=== PATIENT | male | born 1950 | race Caucasian/White ===

== ENCOUNTER 2025-04-29 09:06 | Inpatient (IN) | payer OTHER, SELFPAY ==
[2025-04-28 23:56] VITALS: BMI 39.4
[2025-04-29] VITALS (16 sets, daily range): BP systolic 91–133; BP diastolic 54–93; PULSE 85–87; O2SAT 96–98; BMI 38.8
[2025-04-29 00:56] LABS: % Basophils 0.8 % (0-2); % Eosinophils 1.1 % (0-6); % Immature Granulocytes 0.6 % (0-0.5); % Lymphocytes 8.7 % (20.5-51.1); % Monocytes 6.7 % (1.7-9.3); % Neutrophils 82.1 % (42.2-75.2); Absolute Basophils 0.1 10^3/uL (0-0.2); Absolute Eosinophils 0.1 10^3/uL (0-0.7); Absolute Immature Granulocytes 0.1 10^3/uL (0-0.05); Absolute Lymphocytes 0.9 10^3/uL (1.2-3.4); Absolute Monocytes 0.7 10^3/uL (0.1-0.6); Absolute Neutrophils 8.5 10^3/uL (1.4-6.5); Hematocrit 33.4 % (39.0-52.0); Hemoglobin 10.4 g/dL (13.0-18.0); Mean Corp Hgb Conc. 31.1 g/dL (33.0-37.0); Mean Corpuscular Hgb 26.8 pg (27.0-31.0); Mean Corpuscular Volume 86.1 fL (80.0-94.0); Mean Platelet Volume 10.6 fL (7.4-10.4); Nucleated Red Blood Cells % 0 % (-); Platelet Count 190 10^3/uL (130-400); Red Blood Cell Count 3.88 10^6/uL (4.70-6.10); Red Cell Dist. Width 16.8 % (11.5-14.5); White Blood Cell Count 10.3 10^3/uL (4.8-10.8)
[2025-04-29 01:04] LABS: NT-proBNP 21800 pg/ml
[2025-04-29 01:27] LABS: ALT (SGPT) 70 U/L (0-50); AST (SGOT) 59 U/L (17-59); Albumin 2.9 g/dl (3.5-5.0); Alkaline Phosphatase 172 U/L (38-126); Blood Urea Nitrogen 32 mg/dl (9-20); Calcium 8.1 mg/dl (8.4-10.2); Chloride 96 mmol/L (98-107); Estimated Creatinine Clearance 99 ml/min; Glucose 112 mg/dl (70-99); Potassium 3.8 mmol/L (3.5-5.1); Sodium 143 mmol/L (135-145); Total Bilirubin 0.9 mg/dl (0.2-1.3); Total Protein 5.7 g/dl (6.3-8.2); eGFR > 60.00
--- NOTE | 2025-04-29 01:32 | ED.GENMED ---
History of Present Illness
General
Chief Complaint: Abnormal Lab Value
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
Exam Limitations: none
Time Seen by Provider: 04/29/25 01:15
Nursing documentation reviewed up to this point in time: agreed with
History of Present Illness
History of Present Illness:
Patient sent to ED from rehab for abnormal labs: BUN 28, BNP 3396, CO2>40. Labs were drawn earlier today. Brought to ED via EMS for eval. +GUNDERSON wtih minimal activity. He is currently on 2L NC which he reports is new to him. .
Past History
Past History
ED Past Medical History: CAD, CHF, CVA, HTN and NIDDM
Review of Systems
Review of Systems
Allergies reviewed?: Yes
All Other Systems: ROS reviewed and negative except as documented in HPI and ROS
Constitutional: Reports no symptoms
EENT: Reports no symptoms
Respiratory: Reports trouble breathing
Cardiac: Reports no symptoms
ABD/GI: Reports no symptoms
: Reports no symptoms
Musculoskeletal: Reports no symptoms
Skin: Reports no symptoms
Neurological: Reports no symptoms
Psychiatric: Reports no symptoms
Phy Exam
General Physical Exam
General Presentation: moderate distress
General age: appears stated age
General Skin: warm and dry
General Habitus: debilitated
General Mental: alert
Cardiovascular Exam
Cardiovascular Exam: regular rate/rhythm
Pulmonary Exam
Pulmonary Exam: chest non tender and decreased breath sounds
Oxygen Status: oxygen 2 liters via NC
Breath Sounds: Crackles: left lower and right lower
Gastrointestinal Exam
Gastrointestinal Exam: normal bowel sounds, non tender and soft
Neurological Exam
Neurological Exam: alert, oriented x3, CN II-XII intact, no motor deficits, normal reflexs and no sensory deficits
Musculoskeletal Exam
Musculoskeletal Exam: edema (+1 edema BLE) and neuro vasc intact
Skin Exam
Skin Exam: normal color, warm/dry and no rash
Psychiatric Exam
Psychiatric Exam: normal mood/affect
Course
Orders/Labs/Results
Orders:
Orders
04/29/25 00:32
BNP [NT-proBNP] Urgent
Complete Blood Count/With Diff Urgent
Comprehensive Metabolic Panel Urgent
04/29/25 01:32
CR Chest - 2 Views Urgent
Comment:
Reason For Exam: SOB
04/29/25 01:57
Urinalysis Reflex To Culture Urgent
Date Specimen was Collected: 04/29/25
Time Specimen was Collected: 01:56
Urine Microscopic Reflex Cult Urgent
Urine Culture Urgent
KYLE Source: U
Specimen Description:
Date Specimen was Collected: 04/29/25
Time Specimen was Collected: 01:56
04/29/25 02:24
Furosemide [Lasix] 20 mg IV NOW STA
Abnormal Lab Results
04/29/25 04/29/25
00:32 01:57
RBC 3.88 L 10^6/uL
(4.70-6.10)
Hgb 10.4 L g/dL
(13.0-18.0)
Hct 33.4 L %
(39.0-52.0)
MCH 26.8 L pg
(27.0-31.0)
MCHC 31.1 L g/dL
(33.0-37.0)
RDW 16.8 H %
(11.5-14.5)
MPV 10.6 H fL
(7.4-10.4)
Abs Immat Gran (auto) 0.1 H 10^3/uL
(0-0.05)
Absolute Neuts (auto) 8.5 H 10^3/uL
(1.4-6.5)
Absolute Lymphs (auto) 0.9 L 10^3/uL
(1.2-3.4)
Absolute Monos (auto) 0.7 H 10^3/uL
(0.1-0.6)
Immature Gran % 0.6 H %
(0-0.5)
Neutrophils % 82.1 H %
(42.2-75.2)
Lymphocytes % 8.7 L %
(20.5-51.1)
Chloride 96 L mmol/L
(98-107)
Carbon Dioxide 39 H mmol/L
(22-30)
BUN 32 H mg/dl
(9-20)
Glucose 112 H mg/dl
(70-99)
Calcium 8.1 L mg/dl
(8.4-10.2)
ALT 70 H U/L
(0-50)
Alkaline Phosphatase 172 H U/L
(38-126)
Total Protein 5.7 L g/dl
(6.3-8.2)
Albumin 2.9 L g/dl
(3.5-5.0)
Ur Occult Blood Reflex 2+ A
(Negative)
Leukocyte Esterase Rfl 1+ A
(Negative)
Urine RBC 3-6 A /HPF
(0-2)
Urine WBC (Reflex) 11-15 A /HPF
(0-5)
Urine Bacteria (Reflex) Few A
(Negative)
Urine Albumin (Reflex) 1+ A
(Neg - Trace)
04/29/25 00:32
04/29/25 00:32
Vital Signs
Initial and Last Documented VS:
Initial Vital Signs
Temp
98.3 F
04/28/25 23:56
Last Documented Vital Signs
Temp Pulse Resp BP Pulse Ox
98.3 F 80 15 100/68 95
04/28/25 23:56 04/29/25 01:45 04/29/25 01:45 04/29/25 01:18 04/29/25 01:45
*Critical Care Note
Total Time (30-74mins, 75-104mins- exclusive of procedures): Not Applicable
Update Note
Update Note:
Patient to ED from [facility] for abnormal labs. BNP 3300, CO2 >40. He was placed on O2 and rehab facility. Currently 2L NC with pulse ox maintaining at 97%. (pulse ox drops to 89% RA) GUNDERSON with minimal activity. Labs reviewed. BNP 75127. CXR
confirming CHF. RLL effusion. WIll admit to hospitalist. Lasix 20mg IV given in ED.
ED Attending Note
-
Portions of this chart may have been created with voice recognition software.� Occasional wrong word or��sound alike� substitutions may have occurred due to the inherent limitations of voice recognition software.
Discharge Plan
Departure
Patient Disposition: Admit
Date of Disposition: 04/29/25
Time of Disposition: 02:32
Presentation/result/management discussed w/ accepting MD/DO: Hospitalist
Patient with high blood pressure during this ER visit?: No
Condition: Fair
Covid-19: Not Applicable
Discharge Problem:
CHF (congestive heart failure)
Referrals:
Efrain Ma MD [Family Provider]
Interventions
Interventions:
*Risk Screen - Suicide Last Done: 04/28/25 23:56
*General Assessment Last Done: 04/28/25 23:56
*Neglect/Abuse Screening Last Done: 04/28/25 23:56
*ED- Fall Risk Assessment Last Done: 04/28/25 23:56
*ED COVID-19 Vaccine History Last Done: 04/28/25 23:56
Discharge Date and Time
Print Language: SWEDISH
[2025-04-29 01:39] LABS: Carbon Dioxide 39 mmol/L (22-30)
[2025-04-29 02:05] LABS: Urine Albumin 1+ (Neg - Trace); Urine Bilirubin Negative (Negative); Urine Character Clear (Clear); Urine Color Yellow; Urine Glucose Negative (Negative); Urine Ketone Negative (Negative); Urine Leukocyte 1+ (Negative); Urine Nitrite Negative (Negative); Urine Occult Blood 2+ (Negative); Urine Urobilinogen Negative (Neg - 1+)
[2025-04-29 02:24] LABS: Urine Mucus Many
[2025-04-29 02:26] LABS: Urine Bacteria Few (Negative)
[2025-04-29] MEDS: FLUSH (NSS) 10 FLUSH IV (03:12)
[2025-04-29] MEDS: LASIX 20 MG IV ×2 (03:12→09:48)
--- NOTE | 2025-04-29 03:36 | HPS.HSE ---
Family Physician
-
Family Physician: Efrain Ma
Chief Complaint
-
From rehab facility due to abnormal laboratory findings
History of Present Illness
The patient is a 74-year-old gentleman with past medical history significant for coronary artery disease, cardiac stents on Plavix, Life Vest, CHF on 1800 mL fluid restriction, CVA on Xarelto, hypertension, fsx-qwtdcqp-hxpdnfzrc diabetes, BPH,
neurogenic bladder w chronic Hester (unclear how long this has been in), Life Vest, hydrocele, lymphadenopathy, cellulitis, diet w thin liquids, SAMI not tolerating CPAP, on oxygen 2L per NC for the prior 6 months per patient, who presented to the
emergency department via EMS from rehab facility due to worsening dyspnea on minimal exertion and laboratory findings of BNP of 3396 and CO2 greater than 40 from labs drawn earlier today. He presented on 2 L nasal cannula that was placed at the
rehab facility, not typically on home oxygen. His oxygen saturation in the emergency department is 89% on room air.
Laboratory findings are remarkable for hemoglobin 10.4, CO2 39, BUN 32, ALT 70, albumin 2.9, proBNP 21,800, urinalysis with 2+ occult blood, 1+ leukocyte esterase, 11-15 WBCs, few bacteria
Chest x-ray shows bilateral pleural effusion, bilateral vascular congestion, cardiomegaly, no prior chest x-rays to compare
ED treatment 20 mg IV Lasix
Medical History
Past Medical History
Past Medical History: Reports CAD (cardiac stents/[facility], Life Vest), CHF, CVA (on Xarelto), HTN (Essential), NIDDM and Other (Anemia, BPH, neurogenic bladder, Hester catheter, Sleep apnea did not tolerate CPAP, ambulatory dysfunction, hydrocele)
Past Surgical History: Reports Cardiac (stent)
Social History
Tobacco: Non-smoker
Alcohol: None
Drug: None
Family History
Family History: Not pertinent
Allergies / Home Medications
Allergies reflects when Allergies were last updated in [employer].
Home Medications with original date entered in [employer]
Allergy/Medication List:
Allergies
Allergy/AdvReac Type Severity Reaction Status Date / Time
sulfate ion Allergy Unknown Verified 04/28/25 23:57
Home Medications
atorvastatin 80 mg tablet 80 mg PO QPM 04/29/25
brimonidine 0.2 % eye drops 1 drp ophthalmic (eye) Q8H 04/29/25
bumetanide 2 mg tablet 2 mg PO BID 04/29/25
clopidogrel 75 mg tablet (Plavix) 75 mg PO DAILY 04/29/25
finasteride 5 mg tablet 5 mg PO DAILY 04/29/25
gabapentin 600 mg tablet 600 mg PO TID 04/29/25
latanoprost 0.005 % eye drops 1 drp ophthalmic (eye) QPM 04/29/25
metoprolol succinate 25 mg tablet,extended release 24 hr 25 mg PO DAILY 04/29/25
pantoprazole 40 mg tablet,delayed release 40 mg PO DAILY 04/29/25
rivaroxaban 20 mg tablet (Xarelto) 20 mg PO DAILY 04/29/25
tamsulosin 0.4 mg capsule (Flomax) 0.4 mg PO DAILY 04/29/25
Review of Systems
-
A 12 point ROS was completed and negative except as noted: Yes
Physical Exam
Vital Signs
Vital Signs
Temp Pulse Resp BP Pulse Ox
98.3 F 78 18 103/77 99
04/28/25 23:56 04/29/25 03:00 04/29/25 03:00 04/29/25 03:00 04/29/25 03:00
Physical Exam
General: Well Developed, Well Nourished, Conversant and Respiratory Distress (dyspnea with 2-3 word sentences)
HEENT: NormoCephalic, Anicteric and Moist mucous membranes
Respiratory: Crackles (bibasilar)
Cardiac: S1/S2, Regular Rhythm and JVD
GI: Soft, Non Tender and Non Distended
Musculoskeletal: Edema, Left Lower Extremity (up to thigh, 3+) and Edema, Right Lower Extremity (up to thigh, 3+)
Skin: Warm and Dry
Neuro: No Motor Deficits and Nonfocal/grossly intact
Psych: Calm
Laboratory Results
-
04/29/25 00:32
04/29/25 00:32
Laboratory Results
Total Bilirubin 0.9 mg/dl (0.2-1.3) 04/29/25 00:32
AST 59 U/L (17-59) 04/29/25 00:32
ALT 70 U/L (0-50) H 04/29/25 00:32
Alkaline Phosphatase 172 U/L (38-126) H 04/29/25 00:32
Impression/Plan
-
IMPRESSION:The patient is a 74-year-old gentleman with past medical history significant for coronary artery disease, CHF, CVA, hypertension, wyc-yyhwwgt-mdiwysgzk diabetes who presented to the emergency department via EMS from rehab facility due to
dyspnea on minimal exertion and laboratory findings of BNP of 3396 and CO2 greater than 40 from labs drawn earlier today. He presented on 2 L nasal cannula that was placed at the rehab facility, not typically on home oxygen. His oxygen saturation
in the emergency department is 89% on room air. Hester catheter in place draining clear pale yellow urine. He denies CP, no abdominal pain, no n/v/d, b/l LE edema acute on chronic, scrotal swelling, and developing sacral decub/buttock ulcers
Laboratory findings are remarkable for hemoglobin 10.4, CO2 39, BUN 32, ALT 70, albumin 2.9, proBNP 21,800, urinalysis with 2+ occult blood, 1+ leukocyte esterase, 11-15 WBCs, few bacteria
Chest x-ray shows bilateral pleural effusion, bilateral vascular congestion, cardiomegaly, no prior chest x-rays to compare
ED treatment 20 mg IV Lasix
#Acute exacerbation of CHF, no history of being seen at , was seen at [facility], Dr. Sim, pt requesting to come to from rehab facility.
-tele monitoring
-cont IV Lasix 20 BID-he responded well to 20 IV in ED
-Cardiology consultation for am
-will obtain [facility] records
-check trop
-Add on Mg
-strict i/o, daily weights, fluid restriction
-Continue O2 per NC, with weaning protocol, currently requiring 3L O2
-obtain EKG and echocardiogram
#Coronary artery disease,
-cardiac stents on Plavix,
-noted Life Vest,
# CVA on Xarelto, stable
#Essential hypertension
#Soa-chembza-kmgvyuszw diabetes
#BPH
-Follows OP with urology
#neurogenic bladder w chronic Hester (unclear how long this has been in),
#Hydrocele,
#lymphadenopathy,history of LE cellulitis, no evidence for cellulitis currently
#SAMI not tolerating CPAP, on oxygen 2L per NC for the prior 6 months
-Continue O2 with weaning protocol, currently requiring 3L O2
DVT proph-cont Xarelto
Full Code
--- NOTE | 2025-04-29 08:15 | PTCARENOTE ---
Pt arrived from ED at this time, AAOX3, SR on telemetry, SOB, GUNDERSON, on 3L O2 via NC- SPO2 97% on 3L. See shift assessment for further detail. Oriented pt to rm, call aguillon, pressure ulcer prevention, fall risk, reporting concerns, etc- pt verbalized
understanding. Call aguillon within reach.
[2025-04-29 08:32] LABS: Magnesium 1.8 mg/dl (1.6-2.3)
[2025-04-29 09:03] LABS: Troponin I 0.022 ng/ml
--- NOTE | 2025-04-29 09:35 | W.PN.HOSP.TC ---
Today's Communication/Plan
-
Increase dose of Lasix
Prednisone
Nebs
Mucinex
Cardiology consult
PT/OT
Doppler ultrasound lower extremities
Try to obtain records
Assessment / Plan
Assessment / Plan
Gen-AAOx3, NAD, obese
HEENT-NC, AT, anicteric, clear oral mm
Neck-supple
CV-reg, no M, +S1/S2
Lungs-bilateral expiratory wheezing
Abd-soft, NT, ND
Ext-no edema
Musculoskeletal-no cyanosis, clubbing
Skin-warm and dry
Neuro-grossly non-focal
Psych-calm, cooperative
Acute hypoxic respiratory failure -likely multifactorial etiology including acute pulmonary edema from heart failure exacerbation, pleural effusions, acute bronchitis with active wheezing, etc.
Oxygenation adequate on 3 L nasal cannula.
Chest x-ray demonstrates moderate cardiomegaly, moderate pulmonary edema, moderate size right and small left pleural effusions.
Acute on chronic heart failure exacerbation -unknown type. BNP 21,800. Check echocardiogram. Increase Lasix dose to 40 mg IV twice daily. Consult cardiology. Try to obtain records from [facility]. Patient states he was just discharged from
[facility] several days ago after a 2-week stay. He is a very poor historian and cannot give me further details. Cannot tell me the diagnoses.
It is documented he required a LifeVest, unclear if he still requires this. 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 Records requested.
Was on Bumex 2 mg twice daily prior to admission.
Acute bronchitis -wheezing on exam. Start prednisone and nebs, Mucinex. Incentive spirometer.
CAD -with prior stenting, details are not known. Try to obtain records.
Essential hypertension -stable.
DM2 without hyperglycemia -does not appear to be on medications for diabetes. Continue low resistance insulin scale. Check hemoglobin A1c.
History of stroke -details unknown.
SAMI - intolerant of CPAP.
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 Currently on Xarelto, details unclear. Try to obtain records.
Neurogenic bladder -chronic Hester catheter. Unclear when it was last changed.
Hydrocele -was due for treatment by his urologist but postponed due to respiratory status.
BPH -tamsulosin.
Chronic anemia -hemoglobin 10.4. Baseline unknown. Monitor for now.
Morbid obesity due to excess calories
Full code
PT/OT
Anticipated Discharge: > 48 hours
Subjective/Interval History
-
Date of Service: April 29, 2025
Patient seen and examined. Breathing somewhat improved. Does have a cough.
Objective Data
-
Labs:
Laboratory Results
04/29/25
00:32
WBC 10.3
Hgb 10.4 L
Hct 33.4 L
Plt Count 190
Sodium 143
Potassium 3.8
Chloride 96 L
Carbon Dioxide 39 H
BUN 32 H
Creatinine 0.8
Glucose 112 H
Calcium 8.1 L
Total Bilirubin 0.9
AST 59
ALT 70 H
Alkaline Phosphatase 172 H
Vital Signs:
Vital Signs
Temp Pulse Resp BP Pulse Ox
97.5 F 61 18 116/68 98
04/29/25 08:10 04/29/25 08:10 04/29/25 08:10 04/29/25 08:10 04/29/25 08:10
I&O
04/28/25 04/29/25 04/30/25
06:59 06:59 06:59
Output Total 450 / 450 850 / 850
Balance -450 / -450 -850 / -850
Review of Systems
-
History Source: Patient
All other systems: Reviewed and negative
[2025-04-29 09:38] LABS: Glucose - Point of Care 119 mg/dl (70-99)
[2025-04-29] MEDS: NOVOLOG FLEXPEN-LOW RESISTANCE SC ×3 (09:43→17:03)
[2025-04-29] MEDS: FLOMAX 0.4 MG PO (09:44)
[2025-04-29] MEDS: PROSCAR 5 MG PO (09:44)
[2025-04-29] MEDS: PLAVIX 75 MG PO (09:44)
[2025-04-29] MEDS: ALPHAGAN 0.2% EYE DROPS 1 DROP OPHTH ×3 (09:44→23:05)
[2025-04-29] MEDS: PROTONIX 40 MG PO (09:44)
[2025-04-29] MEDS: NEURONTIN 600 MG PO ×3 (09:45→21:02)
[2025-04-29] MEDS: MUCINEX 600 MG PO ×2 (09:45→20:39)
[2025-04-29] MEDS: DELTASONE 40 MG PO (09:45)
[2025-04-29] MEDS: TOPROL XL 25 MG PO (09:45)
[2025-04-29] MEDS: XARELTO 20 MG PO (09:45)
[2025-04-29] MEDS: FLUSH (NSS) 2 FLUSH IV (09:48)
[2025-04-29] MEDS: VENTOLIN NEBULES 2.5 MG INH ×3 (10:54→19:19)
--- NOTE | 2025-04-29 11:40 | CON.CAR ---
Addendum entered and electronically signed by Filiberto Wilkes DO 04/29/25 13:45:
I saw and examined the patient.
The Spotter Driver's note was reviewed and I agree with the note.
Comment:
Patient seen and examined, resting comfortably in bed, enjoying lunch. Patient denies chest pain, palpitations, lightheadedness, dizziness, or weakness. Notes some shortness of breath while eating and with supplemental oxygen on.
GENERAL: no acute distress, mild dyspnea, 3 L nasal cannula, obese
EYE: sclera anicteric
NECK: Supple, no JVD, no carotid bruit appreciated
ENT: normal nose, moist mucosal membranes
CARDIAC: Regular rate and rhythm, +S1/S2, no murmur, rubs, or gallops, distant heart sounds
CHEST/PULMONARY: Poor inspiratory effort, faint crackles
ABDOMEN: Soft, without focal tenderness or distention
NEUROLOGICAL: Alert and oriented x3
SKIN: Warm and dry, no rash; 1�2+ bilateral pitting edema with chronic discoloration
PSYCH: Normal and appropriate interaction.
Telemetry shows sinus rhythm, PAC/PVC, brief NSVT
Assessment and plan as below
Awaiting medical records from [facility] and [facility]; patient with complex medical history unable to provide much information
Continue Plavix 75 mg daily, and adjusted Xarelto 15 mg daily in the setting of his possible ischemic heart disease and possible AF history
It is reported patient has a LifeVest following discharge from one of his hospitalizations however patient reporting he wore the LifeVest for 4 weeks and has not worn it since and does not have it with him.
IV diuresis 80 mg twice daily, monitor renal function, electrolytes, intake and output in the setting of acute on chronic heart failure
Repeat echocardiogram
Trend troponin to peak and monitor
Further recommendations to follow
Discussed with nursing
Original Note:
Consultation
Consultation Request
Date/Time Consultation Requested: 04/29/2025
Date/Time Consultation Performed: 04/29/2025
Requesting Provider: Dr. Patiño
Performing Provider: Dr. Wilkes
Reason for Consultation: Acute HF
Medical History
-
History of Present Illness:
Patient came to [facility] ER very early this morning from [facility] because of abnormal labs and was admitted with acute HF unknown EF and cardiology has been consulted. Patient is not clear if the details of his past medical history and states that he has
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 He says he is now following primarily at [facility] and was admitted there twice
recently for what sounds like heart failure and possibly CAD. Patient describes having a right IJ placed and being in ICU. Patient was transferred to [facility] and had labs there, the BNP was 3396 and he was transferred to [facility] ER for evaluation, he
has never been evaluated in this healthcare system. I checked in [facility] and there are no available records and they are either including looking at [facility]. When patient was transferred from [facility] [place] food BB [facility] he did not require supplemental oxygen
but is now requiring 3 L NC continuously.
PM:
Recent hospitalizations at [facility] and possibly [facility] for acute HF and CAD, details unclear
Chronic HF unknown EF
CAD s/p PCI unknown vessel, unknown time, unknown healthcare system
LifeVest therapy, unclear if for ICM or arrhythmia
h/o CVA
Sinus rhythm throughout admission, possible paroxysmal atrial fibrillation
Hyperlipidemia
Past Medical History
Past Medical History: Other (In HPI)
Past Surgical History: Cardiac (PCI)
Social History
Tobacco: Non-Smoker
Alcohol: None
Drug: None
Personal: (His in the last year)
Living: Group Home ([facility])
Family History
Family History: Diabetes
Allergies / Home Medications
Allergy/AdvReac Type Severity Reaction Status Date / Time
sulfate ion Allergy Unknown Verified 04/29/25 07:00
�Medication �Instructions �Recorded �Confirmed �Type
atorvastatin 80 mg tablet 80 mg PO QPM 04/29/25 04/29/25 History
brimonidine 0.2 % eye drops 1 drp ophthalmic (eye) Q8H 04/29/25 04/29/25 History
bumetanide 2 mg tablet 2 mg PO BID 04/29/25 04/29/25 History
clopidogrel 75 mg tablet (Plavix) 75 mg PO DAILY 04/29/25 04/29/25 History
finasteride 5 mg tablet 5 mg PO DAILY 04/29/25 04/29/25 History
gabapentin 600 mg tablet 600 mg PO TID 04/29/25 04/29/25 History
latanoprost 0.005 % eye drops 1 drp ophthalmic (eye) QPM 04/29/25 04/29/25 History
metoprolol succinate 25 mg 25 mg PO DAILY 04/29/25 04/29/25 History
tablet,extended release 24 hr
pantoprazole 40 mg tablet,delayed 40 mg PO DAILY 04/29/25 04/29/25 History
release
rivaroxaban 20 mg tablet (Xarelto) 20 mg PO DAILY 04/29/25 04/29/25 History
tamsulosin 0.4 mg capsule (Flomax) 0.4 mg PO DAILY 04/29/25 04/29/25 History
Review of Systems
-
History Source: Patient
All other systems: Negative unless noted
Physical Exam
Vital Signs
Temp Pulse Resp BP Pulse Ox
97.5 F 85 15 116/68 98
04/29/25 08:10 04/29/25 11:02 04/29/25 11:02 04/29/25 09:45 04/29/25 11:02
GEN: NAD. AAOx3
HEENT: EOMI, MMM
LUNGS: 3 L NC. Clear anterolaterally with poor inspiratory effort
CV: Reg, S1/S2, difficult to appreciate murmur, distant heart sounds
ABD: obese abdomen, soft, BS+, NT, ND
EXT: +1-2 B/L LE edema
NEURO: Gross non-focal
SKIN: No rash
Lab Results
04/29/25 00:32
04/29/25 00:32
Troponin I 0.022 ng/ml 04/29/25 08:20
Trs-P-Jafgysnvlye Pept 27858 pg/ml 04/29/25 00:32
Impression / Plan
-
PCP: Dr. Efrain Ma at [facility] and sees a PCP as an outpatient
Card: Dr. Charles Sim at [facility]
Impression:
Admitted with acute hypoxia and CHF 04/29/2025
Recent hospitalizations at [facility] and possibly [facility] for acute HF and CAD, details unclear
Acute on chronic HF unknown EF
CAD s/p PCI unknown vessel, unknown time, unknown healthcare system
LifeVest therapy, unclear if for ICM or arrhythmia
h/o CVA
Sinus rhythm throughout admission, possible paroxysmal atrial fibrillation
Hyperlipidemia
Plan:
-Patient came to [facility] ER very early this morning from [facility] because of abnormal labs and was admitted with acute HF unknown EF and cardiology has been consulted. Patient is not clear if the details of his past medical history and states that he has
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 He says he is now following primarily at [facility] and was admitted there twice
recently for what sounds like heart failure and possibly CAD. Patient describes having a right IJ placed and being in ICU. Patient was transferred to [facility] and had labs there, the BNP was 3396 and he was transferred to [facility] ER for evaluation, he
has never been evaluated in this healthcare system. I checked in [facility] and there are no available records and they are either including looking at [facility]. When patient was transferred from [facility] [place] food BB [facility] he did not require supplemental oxygen
but is now requiring 3 L NC continuously.
-ECG x 2 reviewed by me is SR without atrial arrhythmia or acute ischemic change, he has rare PAC and PVC
-Initial troponin 0.022 and additional troponin pending. Patient with what he describes as recent PCI of unknown vessel, unknown time and was likely done at [facility]. Outpatient doses of Plavix and Xarelto have been continued
-Patient was taking Plavix 75 mg daily and Xarelto 20 mg daily prior to admission, but [facility] trial data the patient's Xarelto dose should be 15 mg daily when taking along with Plavix in the setting of PCI. Dosing changed by pr 04/29/2025
-No reports of chest pain.
-EF unknown, but presumably reduced given LifeVest. Check echo
-Patient was taking Bumex 2 mg PO BID prior to admission so recommend Lasix 80 mg IV twice daily for diuresis and would consider a dose of metolazone pending diuretic response. No indication the patient has received metolazone in the past and it is
not listed as an allergy
-No appreciable GDMT aside from Toprol-XL 25 mg daily on outpatient medication list, this has also been continued this admission. If EF truly is reduced then we will try to figure out what GDMT he can tolerate based on records once they are
available
[2025-04-29 12:26] LABS: Glucose - Point of Care 116 mg/dl (70-99)
[2025-04-29 14:40] LABS: Troponin I 0.022 ng/ml
--- NOTE | 2025-04-29 15:56 | CM ---
Alert awake oriented patient who was in rehab at [facility] prior to coming to ED . He is assisted in all activities of daily living.He has a walker.Spoke with dgt Fernanda she requests hum to return to [facility] at id. Will need PT eval first.
Pt had VN hx /[facility] SN[facility] history
Pharmacy [facility]
PCP DR Francesca Gomez
PLAN Return to [facility]
[2025-04-29 16:44] LABS: Glucose - Point of Care 138 mg/dl (70-99)
[2025-04-29] MEDS: DESENEX/MITRAZOL/ZEASORB 1 APPLIC TOPICAL ×2 (17:29→20:39)
[2025-04-29] MEDS: LIPITOR 80 MG PO (17:29)
[2025-04-29] MEDS: LASIX 80 MG IV (17:29)
[2025-04-29] MEDS: XALATAN OPHTHALMIC SOLUTION 1 DROP OPHTH (17:40)
[2025-04-29] MEDS: TYLENOL 650 MG PO (20:44)
[2025-04-29 21:06] LABS: Troponin I 0.015 ng/ml
[2025-04-29 21:20] LABS: Glucose - Point of Care 148 mg/dl (70-99)
[2025-04-30 03:43] VITALS: BP 112/72
[2025-04-30 05:46] LABS: Hematocrit 33.6 % (39.0-52.0); Hemoglobin 10.4 g/dL (13.0-18.0); Mean Corpuscular Hgb 26.8 pg (27.0-31.0); Mean Corpuscular Volume 86.6 fL (80.0-94.0); Mean Platelet Volume 10.9 fL (7.4-10.4); Platelet Count 206 10^3/uL (130-400); Red Blood Cell Count 3.88 10^6/uL (4.70-6.10); Red Cell Dist. Width 16.9 % (11.5-14.5); White Blood Cell Count 8.8 10^3/uL (4.8-10.8)
[2025-04-30 06:00] VITALS: BMI 38.5
[2025-04-30 06:13] LABS: ALT (SGPT) 61 U/L (0-50); AST (SGOT) 44 U/L (17-59); Albumin 2.9 g/dl (3.5-5.0); Alkaline Phosphatase 154 U/L (38-126); Blood Urea Nitrogen 34 mg/dl (9-20); Calcium 8.5 mg/dl (8.4-10.2); Chloride 94 mmol/L (98-107); Estimated Creatinine Clearance 88 ml/min; Glucose 106 mg/dl (70-99); HDL Cholesterol 27 mg/dl; LDL Cholesterol, Calculated 26 mg/dl; Potassium 4.2 mmol/L (3.5-5.1); Sodium 142 mmol/L (135-145); Total Bilirubin 0.8 mg/dl (0.2-1.3); Total Cholesterol 64 mg/dl (50-199); Triglyceride 55 mg/dl (10-149); Very Low Density Lipoprotein 11 mg/dl (0-30); eGFR > 60.00
[2025-04-30 06:40] LABS: TSH Reflex To Free T4 1.14 uIU/ml (0.47-4.68)
[2025-04-30 07:09] LABS: Carbon Dioxide 42 mmol/L (22-30)
[2025-04-30] MEDS: VENTOLIN NEBULES 2.5 MG INH ×4 (07:14→19:19)
[2025-04-30 07:15] LABS: Glucose - Point of Care 112 mg/dl (70-99)
[2025-04-30 07:35] VITALS: BP 117/85
[2025-04-30] MEDS: NOVOLOG FLEXPEN-LOW RESISTANCE SC ×3 (08:06→17:12)
[2025-04-30] MEDS: LASIX 80 MG IV ×2 (08:20→17:29)
[2025-04-30] MEDS: DELTASONE 40 MG PO (08:20)
[2025-04-30] MEDS: DESENEX/MITRAZOL/ZEASORB 1 APPLIC TOPICAL ×2 (08:20→20:58)
[2025-04-30] MEDS: FLOMAX 0.4 MG PO (08:20)
[2025-04-30] MEDS: ALPHAGAN 0.2% EYE DROPS 1 DROP OPHTH ×2 (08:20→17:28)
[2025-04-30] MEDS: PLAVIX 75 MG PO (08:21)
[2025-04-30] MEDS: PROSCAR 5 MG PO (08:21)
[2025-04-30] MEDS: TOPROL XL 25 MG PO (08:21)
[2025-04-30] MEDS: MUCINEX 600 MG PO ×2 (08:21→20:58)
[2025-04-30] MEDS: PROTONIX 40 MG PO (08:21)
[2025-04-30] MEDS: NEURONTIN 600 MG PO ×3 (08:21→21:00)
[2025-04-30] MEDS: XARELTO 20 MG PO (08:21)
[2025-04-30] MEDS: FLUSH (NSS) 2 FLUSH IV (08:22)
[2025-04-30 10:11] LABS: Glycohemoglobin (HgbA1c) 6.1 % (4.0-5.6)
[2025-04-30 10:35] VITALS: BMI 38.5
--- NOTE | 2025-04-30 11:01 | W.PN.HOSP.TC ---
Today's Communication/Plan
-
Continue diuresis
Try to obtain records
Echocardiogram in the morning
Assessment / Plan
Assessment / Plan
Gen-AAOx3, NAD, obese
HEENT-NC, AT, anicteric, clear oral mm
Neck-supple
CV-reg, no M, +S1/S2
Lungs-clear bilaterally
Abd-soft, NT, ND
Ext-bilateral lower extremity edema from thighs to feet
Musculoskeletal-no cyanosis, clubbing
Skin-warm and dry
Neuro-grossly non-focal
Psych-calm, cooperative
Acute hypoxic respiratory failure -likely multifactorial etiology including acute pulmonary edema from heart failure exacerbation, pleural effusions, acute bronchitis with active wheezing, etc.
Oxygenation adequate on 3 L nasal cannula.
Chest x-ray demonstrates moderate cardiomegaly, moderate pulmonary edema, moderate size right and small left pleural effusions.
Acute on chronic heart failure exacerbation -unknown type. Clinically improving. Less edema on exam today. BNP 21,800. Check echocardiogram. Continue IV Lasix. Weight coming down.
Try to obtain records from [facility]. Patient states he was just discharged from [facility] several days ago after a 2-week stay. He is a very poor historian and cannot give me further details. Cannot tell me the diagnoses.
It is documented he required a LifeVest, unclear if he still requires this. 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 Sim in [facility]. Records requested.
Was on Bumex 2 mg twice daily prior to admission.
Acute bronchitis -wheezing improved. Short course of steroids. Continue inhalers, Mucinex, incentive spirometer.
CAD -with prior stenting, details are not known. Try to obtain records.
Essential hypertension -stable.
DM2 without hyperglycemia -does not appear to be on medications for diabetes. Continue low resistance insulin scale. Hemoglobin A1c 6.1%. Glucose 106 this morning.
History of stroke -details unknown.
SAMI - intolerant of CPAP.
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 Currently on Xarelto, details unclear. Try to obtain records.
Neurogenic bladder -chronic Hester catheter. Unclear when it was last changed.
Hydrocele -was due for treatment by his urologist but postponed due to respiratory status.
BPH -tamsulosin.
Chronic anemia -hemoglobin 10.4. Baseline unknown. Monitor for now.
Morbid obesity due to excess calories
Full code
PT/OT -SNF on discharge.
Anticipated Discharge: > 48 hours
Subjective/Interval History
-
Date of Service: April 30, 2025
Patient seen and examined. Overall feeling better. Some tightness in the right thigh.
Objective Data
-
Labs:
Laboratory Results
04/30/25 04/30/25
04:47 04:48
WBC 8.8
Hgb 10.4 L
Hct 33.6 L
Plt Count 206
Sodium 142
Potassium 4.2
Chloride 94 L
Carbon Dioxide 42 H
BUN 34 H
Creatinine 0.9
Glucose 106 H
Calcium 8.5
Total Bilirubin 0.8
AST 44
ALT 61 H
Alkaline Phosphatase 154 H
Vital Signs:
Vital Signs
Temp Pulse Resp BP Pulse Ox
98.0 F 67 18 117/85 97
04/30/25 07:35 04/30/25 08:20 04/30/25 07:35 04/30/25 08:20 04/30/25 07:35
I&O
04/29/25 04/30/25 05/01/25
06:59 06:59 06:59
Intake Total 720 / 720
Output Total 450 / 450 3300 / 3300 500 / 500
Balance -450 / -450 -2580 / -2580 -500 / -500
Review of Systems
-
History Source: Patient
All other systems: Reviewed and negative
[2025-04-30 11:25] VITALS: BP 111/78
[2025-04-30 11:48] LABS: Glucose - Point of Care 128 mg/dl (70-99)
--- NOTE | 2025-04-30 12:40 | W.PN.CARDCBS ---
Today's Communication / Plan
-
Diuresis with Lasix 80 mg IV twice daily monitoring intake output Daily weights
Awaiting records
Echocardiogram pending
Impression / Plan
-
PCP: Dr. Efrain Ma at rehab and sees a PCP as an outpatient
Card: Dr. Charles Sim at [facility]
Impression:
Admitted with acute hypoxia and CHF 04/29/2025
Recent hospitalizations at [facility] and possibly [facility] for acute HF and CAD, details unclear
Acute on chronic HF unknown EF
CAD s/p PCI unknown vessel, unknown time, unknown healthcare system
LifeVest therapy, unclear if for ICM or arrhythmia
h/o CVA
Sinus rhythm throughout admission, possible paroxysmal atrial fibrillation
Hyperlipidemia
Plan:
-Patient came to [facility] ER very early this morning from [facility] because of abnormal labs and was admitted with acute HF unknown EF and cardiology has been consulted. Patient is not clear if the details of his past medical history and states that he has
been going to [facility] for at least 9 years, but most recently has become frustrated and has abandoned all of his physicians except for his bioinformatics software engineer. He says he is now following primarily at [facility] and was admitted there twice
recently for what sounds like heart failure and possibly CAD. Patient describes having a right IJ placed and being in ICU. Patient was transferred to [facility] and had labs there, the BNP was 3396 and he was transferred to [facility] ER for evaluation, he
has never been evaluated in this healthcare system. I checked in [facility] and there are no available records and they are either including looking at [facility]. When patient was transferred from [facility] with food BB LVH he did not require supplemental oxygen
but is now requiring 3 L NC continuously.
-ECG x 2 reviewed by me is SR without atrial arrhythmia or acute ischemic change, he has rare PAC and PVC
-Initial troponin 0.022, remain negative for 2 additional troponin Patient with what he describes as recent PCI of unknown vessel, unknown time and was likely done at [facility]. Outpatient doses of Plavix and Xarelto have been continued
-Patient was taking Plavix 75 mg daily and Xarelto 20 mg daily prior to admission, but [facility] trial data the patient's Xarelto dose should be 15 mg daily when taking along with Plavix in the setting of PCI. Dosing changed by me 04/29/2025
-EF unknown, but presumably reduced given LifeVest. Check echo
-Patient was taking Bumex 2 mg PO BID prior to admission so recommend Lasix 80 mg IV twice daily for diuresis and would consider a dose of metolazone pending diuretic response. No indication the patient has received metolazone in the past and it is
not listed as an allergy. Continue IV diuresis monitoring intake and output, daily weights
-No appreciable GDMT aside from Toprol-XL 25 mg daily on outpatient medication list, this has also been continued this admission. If EF truly is reduced then we will try to figure out what GDMT he can tolerate based on records once they are
available
Progress Note - Dietary Service Aide
Subjective
Date of Service: April 30, 2025
Patient seen and examined's morning. No acute events overnight. Patient reporting stable unchanged shortness of breath but does report good urine output. Denies chest pain, palpitations, or weakness.
Objective
Labs:
04/30/25 04:48
04/30/25 04:47
Labs
Hgb 10.4 g/dL (13.0-18.0) L 04/30/25 04:48
Hct 33.6 % (39.0-52.0) L 04/30/25 04:48
Plt Count 206 10^3/uL (130-400) 04/30/25 04:48
Sodium 142 mmol/L (135-145) 04/30/25 04:47
Potassium 4.2 mmol/L (3.5-5.1) 04/30/25 04:47
BUN 34 mg/dl (9-20) H 04/30/25 04:47
Creatinine 0.9 mg/dL (0.7-1.3) 04/30/25 04:47
Glucose 106 mg/dl (70-99) H 04/30/25 04:47
Troponins
04/29/25 04/29/25 04/29/25
08:20 14:09 20:26
Troponin I 0.022 0.022 0.015 D
Vital Signs and I&O:
Vital Signs
Temp Pulse Resp BP Pulse Ox
97.6 F 77 18 111/78 98
04/30/25 11:25 04/30/25 11:25 04/30/25 11:25 04/30/25 11:25 04/30/25 11:25
Vital Signs
Temp Pulse Resp BP Pulse Ox
97.6 F 77 18 111/78 98
04/30/25 11:25 04/30/25 11:25 04/30/25 11:25 04/30/25 11:25 04/30/25 11:25
Intake & Output
04/28/25 04/29/25 04/30/25 05/01/25
06:59 06:59 06:59 06:59
Intake Total 720 / 720
Output Total 450 / 450 3300 / 3300 500 / 500
Balance -450 / -450 -2580 / -2580 -500 / -500
Physical Exam
Physical Exam
GENERAL: no acute distress, mild dyspnea, 3 L nasal cannula, obese
EYE: sclera anicteric
NECK: Supple, no JVD, no carotid bruit appreciated
ENT: normal nose, moist mucosal membranes
CARDIAC: Regular rate and rhythm, +S1/S2, no murmur, rubs, or gallops, distant heart sounds
CHEST/PULMONARY: Poor inspiratory effort, crackles
ABDOMEN: Soft, without focal tenderness or distention
NEUROLOGICAL: Alert and oriented x3
SKIN: Warm and dry, no rash; 1�2+ bilateral pitting edema with chronic discoloration
PSYCH: Normal and appropriate interaction.
[2025-04-30] MEDS: TYLENOL 650 MG PO (15:05)
[2025-04-30 15:30] VITALS: BP 112/57
[2025-04-30 16:49] LABS: Glucose - Point of Care 146 mg/dl (70-99)
[2025-04-30] MEDS: LIPITOR 80 MG PO (17:29)
[2025-04-30] MEDS: XALATAN OPHTHALMIC SOLUTION 1 DROP OPHTH (17:34)
[2025-04-30 19:19] VITALS: BP 110/68
[2025-04-30 21:07] LABS: Glucose - Point of Care 181 mg/dl (70-99)
[2025-04-30 23:55] VITALS: BP 112/69
[2025-05-01] MEDS: ALPHAGAN 0.2% EYE DROPS 1 DROP OPHTH ×3 (00:54→16:40)
[2025-05-01 03:10] VITALS: BP 120/82
[2025-05-01 06:00] VITALS: BMI 38.5
[2025-05-01 07:05] VITALS: BP 112/93
[2025-05-01 07:57] LABS: Glucose - Point of Care 151 mg/dl (70-99)
[2025-05-01] MEDS: VENTOLIN NEBULES 2.5 MG INH ×4 (08:21→19:39)
[2025-05-01 09:03] LABS: Blood Urea Nitrogen 40 mg/dl (9-20); Calcium 8.8 mg/dl (8.4-10.2); Chloride 91 mmol/L (98-107); Estimated Creatinine Clearance 87 ml/min; Glucose 100 mg/dl (70-99); Potassium 3.8 mmol/L (3.5-5.1); Sodium 142 mmol/L (135-145); eGFR > 60.00
[2025-05-01 09:13] LABS: Carbon Dioxide 42 mmol/L (22-30)
--- NOTE | 2025-05-01 10:31 | WOUNDNOTE ---
R AXILLA/LATERAL UPPER CHEST AREA
--- NOTE | 2025-05-01 10:33 | WOUNDNOTE ---
[facility] RN note: Patient admitted with CHF, pleural effusions. Patient admitted from [facility] rehab. Patient was recently at [facility].
See H&P for complete history.
PMH: CAD with prior stenting, DM, CVA, SAMI intolerant of CPAP, VTE, IVC filter, on Xarelto, Hester for neurogenic bladder, hydrocele, anemia, obesity.
Wound Location and type/assessment: Patient admitted with: scattered sacral/buttocks stage 2 pressure injuries with some adhesive related skin tears. Scrotal/penis dull red/MASD. Groin/abdominal mild folds MASD. R distal axilla skin tags with 1
with scabbed tip. Patient stated he was supposed to have skin cancer removed from back area however, he's been medially unavailable to have it removed. Patient plans to follow up with his brazer repair and salvage.
Appetite: on 1800 calorie, 2 gm sodium diet.
Pressure redistribution devices in place: Static air overlay mattress. Air chair cushion. Patient assists with turning.
Plan: Silicone border foam maintained on sacral/buttocks. Patient turned and skin care given with help from CIRO Payton, [facility] RN student Brandee. Barrier ointment applied to scrotal skin. Heels off bed with pillows.
Will confirm orders with Dr. Jaramillo and discussed with CIRO Rodriguez.
Care plan to be updated. Will sign off. Call if needed.
Note to case management of equipment requested for discharge: Air mattress at SNF if not already in place.
Recommend follow up at wound care center upon discharge if needed. Patient to follow up with his brazer repair and salvage.
[2025-05-01] MEDS: NOVOLOG FLEXPEN-LOW RESISTANCE 1 UNITS SC (10:39)
[2025-05-01] MEDS: LASIX 80 MG IV ×2 (10:41→16:51)
[2025-05-01] MEDS: MUCINEX 600 MG PO ×2 (10:44→21:39)
[2025-05-01] MEDS: PROTONIX 40 MG PO (10:44)
[2025-05-01] MEDS: NEURONTIN 600 MG PO ×3 (10:44→21:40)
[2025-05-01] MEDS: PLAVIX 75 MG PO (10:44)
[2025-05-01] MEDS: TOPROL XL 25 MG PO (10:44)
[2025-05-01] MEDS: DESENEX/MITRAZOL/ZEASORB 1 APPLIC TOPICAL ×2 (10:45→21:40)
[2025-05-01] MEDS: FLOMAX 0.4 MG PO (10:45)
[2025-05-01] MEDS: XARELTO 20 MG PO (10:45)
[2025-05-01] MEDS: PROSCAR 5 MG PO (10:45)
[2025-05-01] MEDS: DELTASONE 40 MG PO (10:45)
[2025-05-01] MEDS: TYLENOL 650 MG PO (10:56)
[2025-05-01 11:17] VITALS: BP 110/70
--- NOTE | 2025-05-01 11:23 | W.PN.HOSP.TC ---
Today's Communication/Plan
-
Continue with aggressive diuresis
Wean oxygen as tolerated
Out of bed/PT
Cardiology recommendation
Echo today
Assessment / Plan
Assessment / Plan
Gen-AAOx3, NAD, obese
HEENT-NC, AT, anicteric, clear oral mm
Neck-supple
CV-reg, no M, +S1/S2
Lungs-clear bilaterally, oxygen NC
Abd-soft, NT, ND
Ext-bilateral lower extremity edema from thighs to feet
Musculoskeletal-no cyanosis, clubbing
Skin-warm and dry
Neuro-grossly non-focal
Psych-calm, cooperative, talkative
#Acute hypoxic respiratory failure -likely multifactorial etiology including acute pulmonary edema from heart failure exacerbation, pleural effusions, acute bronchitis with active wheezing, etc.
Oxygenation adequate on 2 L nasal cannula.
Chest x-ray demonstrates moderate cardiomegaly, moderate pulmonary edema, moderate size right and small left pleural effusions.
#Acute on chronic heart failure exacerbation -unknown type. Clinically improving. BNP 21,800.
Check echocardiogram. Continue IV 80 mg Lasix BID. Weight coming down.
Try to obtain records from [facility]. Patient states he was just discharged from [facility] several days ago after a 2-week stay. He is a very poor historian and cannot give me further details. Cannot tell me the diagnoses.
It is documented he required a LifeVest, unclear if he still requires this. 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 Records requested. Still pending
Was on Bumex 2 mg twice daily prior to admission.
#Acute bronchitis
wheezing improved.
s/p Short course of steroids. Continue inhalers, Mucinex, incentive spirometer.
#CAD
with prior stenting, details are not known.
Try to obtain records.
#Essential hypertension
stable.
#DM2 without hyperglycemia -does not appear to be on medications for diabetes.
Continue low resistance insulin scale. Hemoglobin A1c 6.1%. Glucose 151 this morning.
History of stroke -details unknown.
SAMI - intolerant of CPAP.
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 Currently on Xarelto, details unclear. Try to obtain records.
Neurogenic bladder -chronic Hester catheter. Unclear when it was last changed.
Hydrocele -was due for treatment by his urologist but postponed due to respiratory status.
BPH -tamsulosin.
Chronic anemia -hemoglobin 10.4. Baseline unknown. Monitor for now.
Skin cancer status post surgery at [facility]
Morbid obesity due to excess calories
Full code
PT/OT -SNF on discharge.
Anticipated Discharge: > 48 hours
Subjective/Interval History
-
Date of Service: May 01, 2025
States shortness of breath has improved
Patient states while at [facility] he was in the ICU for prolonged period of time. Also states of left neck site catheter ? Devin however patient is unable to provide further information.
Patient is unable to recall about Hester catheter placement at half-way versus hospital
Objective Data
-
Labs:
Laboratory Results
05/01/25
07:00
Sodium 142
Potassium 3.8
Chloride 91 L
Carbon Dioxide 42 H
BUN 40 H
Creatinine 0.9
Glucose 100 H
Calcium 8.8
Vital Signs:
Vital Signs
Temp Pulse Resp BP Pulse Ox
98.3 F 75 20 110/70 100
05/01/25 11:17 05/01/25 11:17 05/01/25 11:17 05/01/25 11:17 05/01/25 11:17
I&O
04/30/25 05/01/25 05/02/25
06:59 06:59 06:59
Intake Total 720 / 720 480 / 480
Output Total 3300 / 3300 2750 / 2750
Balance -2580 / -2580 -2270 / -2270
[2025-05-01 11:51] LABS: Glucose - Point of Care 114 mg/dl (70-99)
[2025-05-01] MEDS: NOVOLOG FLEXPEN-LOW RESISTANCE SC ×2 (13:20→17:20)
--- NOTE | 2025-05-01 14:13 | W.PN.CARDCBS ---
Addendum entered and electronically signed by Eris Guerrero DO 05/01/25 20:17:
I saw and examined the patient.
The Grid Caster's note was reviewed and I agree with the note.
Comment:
Plan:
Cont IV diuresis. He was taking Bumex 2 mg BID prior to admit and transitioned to lasix 80 mg IV BID
Echo pending. EF is presumedly reduced given that he had been recommended LifeVest which he stopped wearing. Await EF.
Cont Plavix and Xarelto.
He had recent PCI unknown vessel likely [facility]
Xarelto has been changed to 15 mg daily in accordance with [place] trial data.
Requested records from previous health information technologist.
Adjust GDMT based on echo and upcoming records.
Discussed with nursing at bedside.
Progress Note - Finisher Denture
Original Note:
Today's Communication / Plan
-
cont diuresis
echo today
await records from previous cards
Impression / Plan
-
PCP: [facility] and sees a PCP as an outpatient
Card: Dr. Charles Sim at [facility]
Impression:
Admitted with acute hypoxia and CHF 04/29/2025
Recent hospitalizations at [facility] and possibly [facility] for acute HF and CAD, details unclear
Acute on chronic HF unknown EF
CAD s/p PCI unknown vessel, unknown time, unknown healthcare system
LifeVest therapy, unclear if for ICM or arrhythmia
h/o CVA
Sinus rhythm throughout admission, possible paroxysmal atrial fibrillation
Hyperlipidemia
Plan:
-Patient came to [facility] ER 04/29/2025 from [facility] because of BNP 3396 and was admitted with acute HF unknown EF and cardiology consulted. Patient is not clear of the details of his PMH and states that he has been going to [facility] for at least 9
years, but most recently has become frustrated and has abandoned all of his physicians except for his health information technologist. He says he is now following primarily at [facility] and was admitted there twice recently for what sounds like heart failure and
possibly CAD. Patient describes having a right IJ placed and being in ICU. Patient was transferred to [facility] and had labs there, the BNP was 3396 and he was transferred to [facility] ER for evaluation, he has never been evaluated in this healthcare
system. I checked in [facility] and there are no available records and they are either including looking at [facility]. When patient was transferred from [facility] he did not require supplemental oxygen but is now requiring 3 L NC continuously.
-ECG: NSR, iLBBB, flat T waves
-telem personally reviewed: NSR 60-70s, occ PVCs
-attempting to get records from OSH. I personally called Dr Charles Sim's office, his cards at [facility]. Pt last seen there 11/2024.
-Initial troponin 0.022, remain negative for 2 additional troponin Patient with what he describes as recent PCI of unknown vessel, unknown time and was likely done at [facility]. Outpatient doses of Plavix and Xarelto have been continued
-Patient was taking Plavix 75 mg daily and Xarelto 20 mg daily prior to admission, but [facility]IONE[facility] trial data the patient's Xarelto dose should be 15 mg daily when taking along with Plavix in the setting of PCI. Dosing changed by me 04/29/2025
-EF unknown, but presumably reduced given LifeVest.
-I ordered echo
-Patient was taking Bumex 2 mg PO BID prior to admission, transitioned to Lasix 80 mg IV twice daily for diuresis and would consider a dose of metolazone pending diuretic response.
-wt down 6 lbs since discharge
-No appreciable GDMT aside from Toprol-XL 25 mg daily on outpatient medication list, this has also been continued this admission. If EF truly is reduced then we will try to figure out what GDMT he can tolerate based on records once they are
available
Progress Note - Finisher Denture
Subjective
Date of Service: May 01, 2025
trying to get records from previous care providers to better understand his underlying cardiac history
diuresed 6lbs, remains on O2
echo ordered for today
Objective
Labs:
04/30/25 04:48
05/01/25 07:00
Labs
Hgb 10.4 g/dL (13.0-18.0) L 04/30/25 04:48
Hct 33.6 % (39.0-52.0) L 04/30/25 04:48
Plt Count 206 10^3/uL (130-400) 04/30/25 04:48
Sodium 142 mmol/L (135-145) 05/01/25 07:00
Potassium 3.8 mmol/L (3.5-5.1) 05/01/25 07:00
BUN 40 mg/dl (9-20) H 05/01/25 07:00
Creatinine 0.9 mg/dL (0.7-1.3) 05/01/25 07:00
Glucose 100 mg/dl (70-99) H 05/01/25 07:00
Troponins
04/29/25 04/29/25 04/29/25
08:20 14:09 20:26
Troponin I 0.022 0.022 0.015 D
Vital Signs and I&O:
Vital Signs
Temp Pulse Resp BP Pulse Ox
98.3 F 68 14 110/70 99
05/01/25 11:17 05/01/25 11:44 05/01/25 11:44 05/01/25 11:17 05/01/25 11:44
Vital Signs
Temp Pulse Resp BP Pulse Ox
98.3 F 68 14 110/70 99
05/01/25 11:17 05/01/25 11:44 05/01/25 11:44 05/01/25 11:17 05/01/25 11:44
Intake & Output
04/29/25 04/30/25 05/01/25 05/02/25
06:59 06:59 06:59 06:59
Intake Total 720 / 720 480 / 480
Output Total 450 / 450 3300 / 3300 2750 / 2750
Balance -450 / -450 -2580 / -2580 -2270 / -2270
Physical Exam
Physical Exam
GEN: No distress, awake, Ox3
HEENT: supple, anicteric, mmm
LUNGS: CTA, no wheezes/rales
CV: Reg, S1/S2, 1/6 syst LSB, no murmur
ABD: soft, BS+, NT/ND
EXT: 1+ B/L LE edema to thighs
NEURO: Gross non-focal
SKIN: No rash
[2025-05-01 15:06] VITALS: BP 135/75
--- NOTE | 2025-05-01 16:18 | W.PN.UPDATE ---
Update Note
Progress Note Update
Spoke w/ daughter Gumaro. Pt had recent hospitalization at [facility] for 1.5 weeks. Tells me hospitalization was for sepsis, pneumonia. Discharged within the past week to rehab and was there for a day or 2 before coming to [facility] ED.
Has had Lifevest since hospitalization in ~ Dec 2024, there was plan for ICD but had to wait 'for 3 months to heal.' I called [facility] and spoke with [facility], faxed over request for records. Awaiting records.
I was able to contact patient's primary orthotic finish grinding technician office, Charles Sim MD at [facility], whom he last saw 12/14/2024. At that time, he was being seen for preoperative risk stratification for hydrocele surgery and had had back surgery the
prior week. Lasix added for concern of lymphedema. Was on losartan�HCTZ and Xarelto. No history of heart failure noted. Chart lists history of CVA, CAD, hypertension, hyperlipidemia, obstructive sleep apnea, PVCs, PE, diabetes. Was on Xarelto
at that time.
Echo 10/07/2019: Normal LV function, EF 56%, mild LVH, mild diastolic dysfunction, normal RV size and function, RVSP 36 mmHg
Await further records.
Echo ordered for today.
[2025-05-01] MEDS: XALATAN OPHTHALMIC SOLUTION OPHTH (16:51)
[2025-05-01] MEDS: LIPITOR 80 MG PO (16:51)
[2025-05-01 17:14] LABS: Glucose - Point of Care 129 mg/dl (70-99)
--- NOTE | 2025-05-01 17:58 | CM ---
Patient will, per PT/OT need SNF prior to her returning back to [place]. Will follow up with family for SNF selections.
Plan: Case management will continue to follow and assist with discharge planning. SNF upon bed availability, patient being cleared for discharge.
[2025-05-01 19:59] VITALS: BP 108/67
[2025-05-01 21:02] LABS: Glucose - Point of Care 185 mg/dl (70-99)
[2025-05-01] MEDS: XALATAN OPHTHALMIC SOLUTION 1 DROP OPHTH (21:40)
[2025-05-01] MEDS: ALPHAGAN 0.2% EYE DROPS OPHTH (23:08)
[2025-05-01 23:10] VITALS: BP 116/70
[2025-05-02] VITALS (8 sets, daily range): BP systolic 99–128; BP diastolic 53–73; PULSE 54–75; O2SAT 94–97; BMI 38.5; BMI 37.3
--- NOTE | 2025-05-02 | PTCARENOTE ---
pt is SR on tele, with multiple pvcs, some bigeminy, and a 5 beat run of v-tach. informed DUMB WAITER OPERATOR Nilam Prince do, am labs earlier. pt has no c/o pain. VSS.
[2025-05-02 03:14] LABS: Hematocrit 34.4 % (39.0-52.0); Hemoglobin 10.9 g/dL (13.0-18.0); Mean Corp Hgb Conc. 31.7 g/dL (33.0-37.0); Mean Corpuscular Hgb 27.1 pg (27.0-31.0); Mean Corpuscular Volume 85.6 fL (80.0-94.0); Mean Platelet Volume 10.7 fL (7.4-10.4); Platelet Count 222 10^3/uL (130-400); Red Blood Cell Count 4.02 10^6/uL (4.70-6.10); Red Cell Dist. Width 16.8 % (11.5-14.5); White Blood Cell Count 8.8 10^3/uL (4.8-10.8)
[2025-05-02 03:37] LABS: Blood Urea Nitrogen 39 mg/dl (9-20); Calcium 8.6 mg/dl (8.4-10.2); Chloride 92 mmol/L (98-107); Estimated Creatinine Clearance 87 ml/min; Glucose 116 mg/dl (70-99); Magnesium 2.2 mg/dl (1.6-2.3); Potassium 3.9 mmol/L (3.5-5.1); Sodium 142 mmol/L (135-145); eGFR > 60.00
[2025-05-02 04:00] LABS: Carbon Dioxide 39 mmol/L (22-30)
[2025-05-02] MEDS: VENTOLIN NEBULES 2.5 MG INH (07:38)
[2025-05-02 08:10] LABS: Glucose - Point of Care 128 mg/dl (70-99)
--- NOTE | 2025-05-02 08:31 | PN.CDI ---
CDI
- -
CDI:
Physician Documentation Request
Admit Date: 04/29/25 09:06
Dear Doctor Ella,
Patient admitted for heart failure.
05/01 Wound Note: 'Patient admitted with: scattered sacral/buttocks stage 2 pressure injuries with some adhesive related skin tears.'
Physician documentation of the type and location of wounds is required for compliant documentation. Based on the above clinical findings and your assessment, please provide the following in your progress note:
1. Location of the ulcer/wound, including laterality.
2. Type (etiology) of ulcer/wound:
- Diabetic ulcer
- Arterial (ischemic) ulcer
- Traumatic wound
- Venous stasis ulcer
- Pressure (decubitus) ulcer
- Non-healing surgical wound
- Other
- Unable to determine
3. For a non-pressure ulcer, please indicate the depth/severity:
- Limited to the breakdown of skin
- With fat layer exposed
- With necrosis of muscle
- With necrosis of bone
- Other
- Unable to determine
4. If a pressure ulcer, please also include the stage* of the ulcer:
- Stage 1 - Skin intact, non-blanchable redness
- Stage 2 - Partial thickness loss of dermis, includes intact or open blister
- Stage 3 - Full thickness tissue not including bone, tendon or muscle
- Stage 4 - Full thickness tissue loss, including exposed bone, tendon or muscle
- Unstageable - Full thickness loss in which the base of the ulcer is covered by slough (yellow, bauer, chapman, green or brown) and/or eschar (bauer, brown or black) in the wound bed.
- Unable to determine
Use of terms such as suspected, likely, concern for, or probable (associated with a specific diagnosis that is being evaluated, monitored, or treated as if it exists) are acceptable and can be coded in the inpatient setting, when documented at the
time of discharge.
Thank you,
Jennifer Hopson RN, BSN
CDI Specialist
Available via [employer] text
Please use your independent medical judgment in providing your response.
*Source: National Pressure Ulcer Advisory Panel (NPUAP)
[2025-05-02] MEDS: NOVOLOG FLEXPEN-LOW RESISTANCE SC ×2 (08:34→12:55)
[2025-05-02] MEDS: ALPHAGAN 0.2% EYE DROPS 1 DROP OPHTH (08:38)
[2025-05-02] MEDS: TOPROL XL 25 MG PO (08:40)
[2025-05-02] MEDS: NEURONTIN 600 MG PO ×3 (08:40→22:17)
[2025-05-02] MEDS: PROTONIX 40 MG PO (08:40)
[2025-05-02] MEDS: LASIX 80 MG IV ×2 (08:40→17:03)
[2025-05-02] MEDS: PROSCAR 5 MG PO (08:40)
[2025-05-02] MEDS: PLAVIX 75 MG PO (08:40)
[2025-05-02] MEDS: FLOMAX 0.4 MG PO (08:40)
[2025-05-02] MEDS: MUCINEX 600 MG PO ×2 (08:40→20:33)
[2025-05-02] MEDS: XARELTO 20 MG PO (08:40)
[2025-05-02] MEDS: KCL 20 MEQ PO ×2 (08:47→17:03)
--- NOTE | 2025-05-02 09:22 | W.PN.CARDCBS ---
Addendum entered and electronically signed by Eris Guerrero DO 05/02/25 16:19:
I saw and examined the patient.
The Electric Motor Rebuilder's note was reviewed and I agree with the note.
Comment:
Plan:
History: Halfway pt of [facility]. Recent distal RCA stent 01/26/2025, heart failure reduced EF of 15 to 20%, DVT status post IVC filter in 2014, hypertension, obstructive sleep apnea.
Admitted 04/16/2025 - 04/25/2025 for concern of cellulitis of scrotum and UTI. Was septic with blood pressures in the 70s/50, required initiation of Levophed and was started on antibiotics. Cardiology was consulted regarding patient's GDMT and GDMT
was stopped due to hypotension. He had previously been on Entresto, spironolactone, Farxiga, carvedilol. Because of hypotension he was only continued on metoprolol 25 mg daily and Bumex. He was continued on Plavix and Xarelto. Plan to consider
single-chamber ICD for primary prevention of sudden cardiac once infection cleared. Had narrow QRS so not thought to be a AUTO APPRENTICE MECHANIC candidate.
Continue IV Lasix diuresis. Add metolazone for better diuresis.
Dry weight is unknown.
Continue I's and O's Daily weight monitor creatinine. Cr normal.
Echo here shows EF 25%.
Eventual plan was for outpt consideration for ICD. He had a LifeVest but stopped wearing it.
Cont beta inna and resume Entresto as bp will allow.
Would avoid Farxiga given UTI/scrotal infection
Cont Plavix with recent stenting and reduce Xarelto to 15 mg daily in accordance with [place] data.
Original Note:
Today's Communication / Plan
-
-add metolazone
-Start Entresto
- Reduce Xarelto to 15 mg daily([place] trial data)
Impression / Plan
-
PCP: Dr. Efrain Ma at rehab and sees a PCP as an outpatient
Card: Dr. Charles Sim at [facility]
Impression:
-Admitted with acute hypoxia and CHF 04/29/2025
-Recent hospitalizations at [facility] for sepsis,scrotal cellulitis, and heart failure-GDMT stopped due to hypotension
-Acute on chronic HFrEF
-CAD s/p PCI distal RCA 01/26/2025 at [facility]. Was on aspirin, Plavix, Xarelto x 7 days then Plavix and Xarelto.
-Ischemic cardiomyopathy with LVEF 15 to 20% 01/16/2025. LifeVest placed post stent with plan to reassess LV systolic function 90 days following coronary revascularization (after 04/25/2025) to reassess LVEF and advise ICD if EF still less than 35%.
Patient then with sepsis at 04/2025 readmission to [facility] and echo there 04/17/2025 with EF 5-10%. Entresto, Farxiga, spironolactone stopped due to hypotension in setting of sepsis. Pt advised to follow-up with EP once infection cleared.
-h/o CVA
-Sinus rhythm throughout admission, possible paroxysmal atrial fibrillation
-Hyperlipidemia
-Obstructive sleep apnea
Previous cardiovascular studies:
Echo 01/16/2025: LVEF 15 to 20%
Echo 04/17/2025 LVEF 5 to 10%
Left heart cath 01/20/2025: 80% trifurcating distal RCA, 80% D2. Right heart cath not performed. Groin access not attempted due to ongoing groin discomfort/scrotal edema/hydrocele/IVC filter\\
Left heart cath 01/26/2025 successful PCI with RONN and PTCA to 99% distal RCA
Plan:
-Patient came to [facility] 04/29/2025 from [facility] because of BNP 3396 and was admitted with acute HF unknown EF and cardiology consulted. Patient is not clear of the details of his PMH and states that he has been going to [facility] for at least 9
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 He says he is now following primarily at [facility] and was admitted there twice recently for what sounds like heart failure and
possibly CAD. Patient describes having a right IJ placed and being in ICU. Patient was transferred to [facility] and had labs there, the BNP was 3396 and he was transferred to [facility] ER for evaluation, he has never been evaluated in this healthcare
system. I checked in [facility] and there are no available records and they are either including looking at [facility]. When patient was transferred from [facility] he did not require supplemental oxygen but is now requiring 3 L NC continuously.
-Obtained records from Dr. Sim who he last saw in November 2024. At that time there was no mention of diagnosis of heart failure and he was started on Lasix for lymphedema in addition to losartan HCTZ. Also on Xarelto. Chart listed history of CVA,
CAD, hypertension, hyperlipidemia, sleep apnea, PE, DM, PVCs
-Echo 05/01/2025: LVEF 25%, mild cLVH (1.2 cm), enlarged RV size and reduced RV systolic function, mild to moderate MR, mild TR, PAP 50 mmHg
-ECG: NSR, iLBBB, flat T waves
-telem personally reviewed: NSR 60-70s, occ PVCs
-Initial troponin 0.022, remain negative for 2 additional troponin. s/p RCA RONN 01/2025 at [facility]. Was on ASA, Plavix, Xarelto x 1 week post stent, then Plavix and Xarelto. Cont Atorvastatin 80 mg daily
-Patient was taking Plavix 75 mg daily and Xarelto 20 mg daily prior to admission, but [place] trial data the patient's Xarelto dose should be 15 mg daily when taking along with Plavix in the setting of PCI. Dosing changed 05/02/2025.
Acute on chronic HFrEF:
Echo 05/01/2025: LVEF 25%, mild cLVH (1.2 cm), enlarged RV size and reduced RV systolic function, mild to moderate MR, mild TR, PAP 50 mmHg
-Patient was taking Bumex 2 mg PO BID prior to admission, transitioned to Lasix 80 mg IV twice daily for diuresis. Wt has been unchanged past 3 days at 253 lbs but down 6 lbs since admission. Appears vol overloaded on exam with LE edema. Renal
fxn stable as of 05/02/2025.
Add metolazone 2.5 mg x 1 dose 05/02/2025, consider repeat if renal fxn stable
-BUN/creat 39/0.9 , K 3.9 on 05/02/2025.
-BPs 110-128/64-73
05/02/2025 -Received records from [facility] -Reviewed cardiology consult note and discharge summary and was able to obtain more past medical history which includes distal RCA stent 01/26/2025, heart failure reduced EF
of 15 to 20%, DVT status post IVC filter in 2014, hypertension, obstructive sleep apnea. Admitted 04/16/2025 - 04/25/2025 for concern of cellulitis of scrotum and UTI. Was septic with blood pressures in the 70s/50, required initiation of Levophed and
was started on antibiotics. Cardiology was consulted regarding patient's GDMT and GDMT was stopped due to hypotension. He had previously been on Entresto, spironolactone, Farxiga, carvedilol. Because of hypotension he was only continued on
metoprolol 25 mg daily and Bumex. He was continued on Plavix and Xarelto. Plan to consider single-chamber ICD for primary prevention of sudden cardiac once infection cleared. Had narrow QRS so not thought to be a AUTO APPRENTICE MECHANIC candidate.
-will restart his outpatient Entresto as no longer hypotensive and renal fxn stable
-avoid Farxiga given UTI/scrotal infection
Progress Note - Sourcing Specialist
Subjective
Date of Service: May 02, 2025
off O2
still with signif LE edema
OOB in chair
Objective
Labs:
05/02/25 03:02
05/02/25 03:02
Labs
Hgb 10.9 g/dL (13.0-18.0) L 05/02/25 03:02
Hct 34.4 % (39.0-52.0) L 05/02/25 03:02
Plt Count 222 10^3/uL (130-400) 05/02/25 03:02
Sodium 142 mmol/L (135-145) 05/02/25 03:02
Potassium 3.9 mmol/L (3.5-5.1) 05/02/25 03:02
BUN 39 mg/dl (9-20) H 05/02/25 03:02
Creatinine 0.9 mg/dL (0.7-1.3) 05/02/25 03:02
Glucose 116 mg/dl (70-99) H 05/02/25 03:02
Troponins
04/29/25 04/29/25
14:09 20:26
Troponin I 0.022 0.015 D
Vital Signs and I&O:
Vital Signs
Temp Pulse Resp BP Pulse Ox
98.0 F 66 20 128/64 96
05/02/25 07:55 05/02/25 07:55 05/02/25 07:55 05/02/25 07:55 05/02/25 07:55
Vital Signs
Temp Pulse Resp BP Pulse Ox
98.0 F 66 20 128/64 96
05/02/25 07:55 05/02/25 07:55 05/02/25 07:55 05/02/25 07:55 05/02/25 07:55
Intake & Output
04/30/25 05/01/25 05/02/25 05/03/25
06:59 06:59 06:59 06:59
Intake Total 720 / 720 480 / 480 1160 / 1160
Output Total 3300 / 3300 2750 / 2750 2975 / 2975
Balance -2580 / -2580 -2270 / -2270 -1815 / -1815
Physical Exam
Physical Exam
GEN: No distress, awake, Ox3, sitting in chair
HEENT: supple, anicteric, mmm
LUNGS: decreased BS R base
CV: Reg, S1/S2, 1/6 syst LSB, no murmur
ABD: soft, BS+, NT/ND
EXT: 1+ B/L LE edema to thighs
NEURO: Gross non-focal
SKIN: No rash
[2025-05-02] MEDS: DESENEX/MITRAZOL/ZEASORB 1 APPLIC TOPICAL ×2 (10:16→20:33)
[2025-05-02] MEDS: ZAROXOLYN 2.5 MG PO (11:41)
[2025-05-02] MEDS: VENTOLIN NEBULES INH (11:42)
--- NOTE | 2025-05-02 12:36 | W.PN.HOSP.TC ---
Today's Communication/Plan
-
Continue with aggressive diuresis
Monitor blood pressure
Monitor creatinine
KCl
Reduce Xarelto dose per cardiology
Assessment / Plan
Assessment / Plan
Gen-AAOx3, NAD, obese
HEENT-NC, AT, anicteric, clear oral mm
Neck-supple
CV-reg, no M, +S1/S2
Lungs-clear bilaterally,
Abd-soft, NT, mild distention-no fluid wave
Ext-bilateral lower extremity edema from thighs to feet
Musculoskeletal-no cyanosis, clubbing
Skin-warm and dry
Neuro-grossly non-focal
Psych-calm, cooperative, talkative
74-year-old male past medical history of BPH, HFrEF and HFpEF CAD status post RCA stent, and hypertension, hydrocele, obesity, colon cancer, skin cancer, diabetes, glaucoma, DVT status post IVC filter in 2015, type SAMI is presented with worsening of
lower extremity edema and abdominal distention.
#Acute hypoxic respiratory failure -likely multifactorial etiology including acute pulmonary edema from heart failure exacerbation, pleural effusions, acute bronchitis with active wheezing, etc.
Weaned off oxygen to room air.
Chest x-ray demonstrates moderate cardiomegaly, moderate pulmonary edema, moderate size right and small left pleural effusions.
#Acute on chronic systolic and diastolic heart failure exacerbation
Clinically improving. BNP 21,800.
Continue IV 80 mg Lasix BID. Agree with additional dose of Zaroxolyn
Started patient on KCl with diuretics
Seems overtly volume overloaded.
Per outpatient [facility] records patient with EF of 15 to 20%. Patient was unable to tolerate goal-directed medical therapy due to hypotension.
Repeat echo with EF of 25%. Stage II diastolic dysfunction.
Was on Bumex 2 mg twice daily prior to admission.
If not much improvement in weight in the next 24 hours can consider increasing diuretics with additional dose of Zaroxolyn
#Acute bronchitis
wheezing improved.
s/p Short course of steroids. Continue inhalers, Mucinex, incentive spirometer.
#CAD with RCA stent on 01/26/25
Continue with Plavix, statin and beta-inna
Currently on Xarelto, and adjusted to 15 mg per cardiology recommendation and [place] trial data
#Essential hypertension
stable.
#DM2 without hyperglycemia -does not appear to be on medications for diabetes.
Continue low resistance insulin scale. Hemoglobin A1c 6.1%. Glucose 151 this morning.
History of stroke -details unknown.
SAMI - intolerant of CPAP.
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 Currently on Xarelto, and adjusted to 15 mg per cardiology recommendation and [place] trial data
Neurogenic bladder -chronic Hester catheter. Unclear when it was last changed.
Hydrocele -was due for treatment by his urologist but postponed due to respiratory status.
BPH -tamsulosin.
Chronic anemia -hemoglobin 10.4. Baseline unknown. Monitor for now.
Skin cancer status post surgery at [facility]
History of colon cancer
Morbid obesity due to excess calories
History of epistaxis
History of thyroid nodule
Buttock stage II pressure injury POA
Offloading
Wound care
Full code
PT/OT -SNF on discharge.
Anticipated Discharge: > 48 hours
Subjective/Interval History
-
Date of Service: May 02, 2025
states remains with edema
Objective Data
-
Labs:
Laboratory Results
05/02/25
03:02
WBC 8.8
Hgb 10.9 L
Hct 34.4 L
Plt Count 222
Sodium 142
Potassium 3.9
Chloride 92 L
Carbon Dioxide 39 H
BUN 39 H
Creatinine 0.9
Glucose 116 H
Calcium 8.6
Vital Signs:
Vital Signs
Temp Pulse Resp BP Pulse Ox
98.4 F 71 20 121/64 92
05/02/25 11:55 05/02/25 11:55 05/02/25 11:55 05/02/25 11:55 05/02/25 11:55
I&O
05/01/25 05/02/25 05/03/25
06:59 06:59 06:59
Intake Total 480 / 480 1160 / 1160
Output Total 2750 / 2750 2975 / 2975
Balance -2270 / -2270 -1815 / -1815
Data Reviewed
-
Total Time Spent with Patient (in minutes): 55
[2025-05-02 12:50] LABS: Glucose - Point of Care 100 mg/dl (70-99)
[2025-05-02 16:36] LABS: Glucose - Point of Care 154 mg/dl (70-99)
[2025-05-02] MEDS: TYLENOL 650 MG PO (17:02)
[2025-05-02] MEDS: NOVOLOG FLEXPEN-LOW RESISTANCE 1 UNITS SC (17:04)
[2025-05-02] MEDS: LIPITOR 80 MG PO (17:07)
[2025-05-02] MEDS: ENTRESTO 24 MG/26 MG 1 TAB PO (20:33)
[2025-05-02 21:44] LABS: Glucose - Point of Care 103 mg/dl (70-99)
[2025-05-02] MEDS: XALATAN OPHTHALMIC SOLUTION 1 DROP OPHTH (22:17)
--- NOTE | 2025-05-02 22:57 | PTCARENOTE ---
pt is 96% on room air while awake; however while sleeping de-stated to 84%. placed on 2L SpO2=92%. pt states he has sleep apnea but does not use a machine because he is claustrophobia and can't stand it on his face.
[2025-05-03] VITALS (7 sets, daily range): BP systolic 101–125; BP diastolic 58–70; PULSE 67; O2SAT 98; BMI 37.3
--- NOTE | 2025-05-03 04:22 | DOWNTIME ---
Addendum entered by Hanh Lacy RN 05/03/25 14:19:
Correction: Downtime was 05/03/2025 from 0100 to 05/03/2025 at 0415
Original Note:
There was a [employer] Client [employer] Tester Downtime on 05/02/2025 from 0100 to 05/03/2025 at 0415. Downtime documentation of patient's care, including medication administrations, has been reconciled in the electronic record per guidelines. Refer to the
patient's paper chart under the miscellaneous tab to see printed paper medication records and downtime forms.
--- NOTE | 2025-05-03 04:23 | PTCARENOTE ---
while sleeping pt had a 16 beat run of vtach. bp=95/56 hr=67. Informed Davida Victor
[2025-05-03 07:21] LABS: Hematocrit 36.6 % (39.0-52.0); Hemoglobin 11.5 g/dL (13.0-18.0); Mean Corp Hgb Conc. 31.4 g/dL (33.0-37.0); Mean Corpuscular Hgb 27.1 pg (27.0-31.0); Mean Corpuscular Volume 86.1 fL (80.0-94.0); Mean Platelet Volume 10.3 fL (7.4-10.4); Platelet Count 211 10^3/uL (130-400); Red Blood Cell Count 4.25 10^6/uL (4.70-6.10); Red Cell Dist. Width 17.3 % (11.5-14.5); White Blood Cell Count 7.6 10^3/uL (4.8-10.8)
[2025-05-03 07:52] LABS: Glucose - Point of Care 114 mg/dl (70-99)
[2025-05-03 07:59] LABS: Blood Urea Nitrogen 40 mg/dl (9-20); Calcium 8.3 mg/dl (8.4-10.2); Chloride 90 mmol/L (98-107); Estimated Creatinine Clearance 86 ml/min; Glucose 76 mg/dl (70-99); Magnesium 2.1 mg/dl (1.6-2.3); Potassium 3.8 mmol/L (3.5-5.1); Sodium 140 mmol/L (135-145); eGFR > 60.00
[2025-05-03] MEDS: NOVOLOG FLEXPEN-LOW RESISTANCE SC ×3 (08:20→17:32)
[2025-05-03] MEDS: ALPHAGAN 0.2% EYE DROPS 1 DROP OPHTH (08:20)
[2025-05-03] MEDS: FLOMAX 0.4 MG PO (08:20)
[2025-05-03] MEDS: MUCINEX 600 MG PO ×2 (08:20→21:30)
[2025-05-03] MEDS: NEURONTIN 600 MG PO ×3 (08:20→21:30)
[2025-05-03] MEDS: TOPROL XL PO (08:21)
[2025-05-03] MEDS: KCL 20 MEQ PO ×2 (08:21→15:21)
[2025-05-03] MEDS: ENTRESTO 24 MG/26 MG PO ×2 (08:21→21:14)
[2025-05-03] MEDS: PROSCAR 5 MG PO (08:22)
[2025-05-03] MEDS: PROTONIX 40 MG PO (08:22)
[2025-05-03] MEDS: PLAVIX 75 MG PO (08:22)
[2025-05-03] MEDS: LASIX 80 MG IV ×2 (08:22→15:22)
[2025-05-03] MEDS: XARELTO 15 MG PO (08:22)
[2025-05-03] MEDS: DESENEX/MITRAZOL/ZEASORB 1 APPLIC TOPICAL ×2 (08:36→21:29)
[2025-05-03 08:53] LABS: Carbon Dioxide 41 mmol/L (22-30)
--- NOTE | 2025-05-03 09:24 | W.PN.CARDCBS ---
Addendum entered and electronically signed by Charles Mccann MD 05/03/25 13:21:
I saw and examined the patient.
The Salt Miner's note was reviewed and I agree with the note.
Comment: Briefly, 74-year-old man past medical history of heart failure with severe reduced ejection fraction previously outfitted with a LifeVest who presents in acute heart failure
Remains volume overloaded on exam and is continuing to require supplemental oxygen
Continue IV Lasix twice daily and plan for additional dose of metolazone today to augment diuresis
Follow renal function electrolytes closely
Check daily standing weights
Wean oxygen as able
Agree with adding GDMT stepwise:
New to Entresto this admission
Spironolactone added
Will eventually resume home metoprolol
Avoid SGLT2 given scrotal infection
Continue Xarelto/Plavix/high intensity statin given history of coronary disease with recent PCI
Original Note:
Today's Communication / Plan
-
Will give another dose of metolazone 2.5 mg x1 with this afternoon's dose of Lasix 80 mg IV BID
Adding spironolactone 12.5 mg daily
Follow labs and VS
Impression / Plan
-
PCP: Dr. Efrain Ma at rehab and sees a PCP as an outpatient
Card: Dr. Charles Sim at [facility]
Impression:
Admitted with acute hypoxia and CHF 04/29/2025
Recent hospitalizations at [facility] for sepsis,scrotal cellulitis, and heart failure-GDMT stopped due to hypotension
Acute on chronic HFrEF
ICM EF 15-20% by echo at [facility] 01/16/25, down to 5-10% by echo at [facility] 04/17/25
prescribed Life Vest at [facility] after 01/2025 admission with plan to recheck echo after 90 days of medical therapy (even though revascularized 01/26/25) then readmitted to [facility] 04/2025 and EF 5-10%, but no ICD placed due to sepsis
CAD
[facility]
h/o CVA
Sinus rhythm throughout admission, possible paroxysmal atrial fibrillation
Hyperlipidemia
Obstructive sleep apnea
Melanoma, was following at [facility], therapy interrupted by repeated admissions
Previous cardiovascular studies from [facility]:
Left heart cath 01/20/2025: 80% trifurcating distal RCA, 80% D2. Right heart cath not performed. Groin access not attempted due to ongoing groin discomfort/scrotal edema/hydrocele/IVC filter
Left heart cath 01/26/2025 successful PCI with RONN and PTCA to 99% distal RCA
Echo 01/16/2025: LVEF 15 to 20%
Echo 04/17/2025 LVEF 5 to 10%
Echo 05/01/2025: LVEF 25%, mild cLVH (1.2 cm), enlarged RV size and reduced RV systolic function, mild to moderate MR, mild TR, PAP 50 mmHg
Plan:
-Patient admitted with acute HFrEF and complex PMH 04/29/25, cardiology was able to obtain, review and summarize records from recent hospitalizations at [facility] as outlined within this note.
-Weight is down at least 10 lbs this admission with Lasix 80 mg IV BID and LE edema has significantly improved. Dry weight unknown. Patient was taking Bumex 2 mg PO BID prior to admission. Cre stable, will continue to diurese.
-Significant diuresis following single dose of metolazone 2.5 mg x1 05/02/25, will repeat with afternoon dose of Lasix IV on 05/03/25
-EF 5-10% by echo at [facility] earlier this month, but looks closer to 25% by echo this admission.
-Outpatient dose of Toprol XL 25 mg daily has been continued.
-New to Entresto 24/26 mg BID this admission. Not sure what his long-term outpatient cost will be for that drug, although patient reports previously working for [employer] and having typically good prescription coverage.
-Renal function stable and potassium is low normal on labs reviewed by me 05/03/25, will add spironolactone 12.5 mg daily starting 05/03/25, ordered by me.
-Not a candidate for SGLT 2 inhibitors due to UTI/scrotal cellulitis
-Follow labs and VS, previous attempts at GDMT were limited by hypotension
-Patient was being considered for AICD at [facility] after initial admission with acute HF and new ICM 01/2025. Patient had cardiac cath and RCA intervention at that time and Life Vest was placed, plan was for possible AICD pending 90 day echo,
this is what the records indicate as opposed to a 40% revascularization echo. Regardless, patient readmitted to [facility] earlier this month and echo repeated and EF was worse at 5-10%, but no AICD due to sepsis. Patient was recommended to
continue wearing Life Vest and follow up with ICD and cardiology as an outpatient for consideration of AICD.
-Troponin serially normal.
-Patient was taking Plavix 75 mg daily and Xarelto 20 mg daily prior to admission, but [place] trial data the patient's Xarelto dose should be 15 mg daily when taking along with Plavix in the setting of PCI. Currently ordered Plavix 75 mg daily and
Xarelto 15 mg daily as of 05/03/25
-Patient also reports a h/o melanoma on his back that was being followed at [facility], patient says that he had been referred for what sounds like Moh's surgery, but plan interrupted by repeated admissions as noted above.
-Talked with patient's daughter using patient's cell phone in the room 05/03/25 for 11 minutes, provided update on admission thus far.
05/02/2025 -Received records from [facility] -Reviewed cardiology consult note and discharge summary and was able to obtain more past medical history which includes distal RCA stent 01/26/2025, heart failure reduced EF
of 15 to 20%, DVT status post IVC filter in 2014, hypertension, obstructive sleep apnea. Admitted 04/16/2025 - 04/25/2025 for concern of cellulitis of scrotum and UTI. Was septic with blood pressures in the 70s/50, required initiation of Levophed and
was started on antibiotics. Cardiology was consulted regarding patient's GDMT and GDMT was stopped due to hypotension. He had previously been on Entresto, spironolactone, Farxiga, carvedilol. Because of hypotension he was only continued on
metoprolol 25 mg daily and Bumex. He was continued on Plavix and Xarelto. Plan to consider single-chamber ICD for primary prevention of sudden cardiac once infection cleared. Had narrow QRS so not thought to be a WINDOWS SYSTEM ADMIN candidate.
HPI: Patient came to [facility] ER 04/29/2025 from [facility] because of BNP 3396 and was admitted with acute HF unknown EF and cardiology consulted. Patient is not clear of the details of his [facility] and states that he has been going to [facility] for at least 9
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 He says he is now following primarily at [facility] and was admitted there twice recently for what sounds like heart failure and
possibly CAD. Patient describes having a right IJ placed and being in ICU. Patient was transferred to [facility] and had labs there, the BNP was 3396 and he was transferred to [facility] ER for evaluation, he has never been evaluated in this healthcare
system. I checked in [facility] and there are no available records and they are either including looking at [facility]. When patient was transferred from [facility] he did not require supplemental oxygen but is now requiring 3 L NC continuously.
Progress Note - Md Pediatric Allergist
Subjective
Date of Service: May 03, 2025
LE edema is better, worried about h/o melanoma
Objective
Labs:
05/03/25 06:23
05/03/25 06:23
Labs
Hgb 11.5 g/dL (13.0-18.0) L 05/03/25 06:23
Hct 36.6 % (39.0-52.0) L 05/03/25 06:23
Plt Count 211 10^3/uL (130-400) 05/03/25 06:23
Sodium 140 mmol/L (135-145) 05/03/25 06:23
Potassium 3.8 mmol/L (3.5-5.1) 05/03/25 06:23
BUN 40 mg/dl (9-20) H 05/03/25 06:23
Creatinine 0.9 mg/dL (0.7-1.3) 05/03/25 06:23
Glucose 76 mg/dl (70-99) 05/03/25 06:23
Vital Signs and I&O:
Vital Signs
Temp Pulse Resp BP Pulse Ox
98 F 54 20 109/69 98
05/03/25 08:02 05/03/25 08:02 05/03/25 08:02 05/03/25 08:02 05/03/25 08:02
Vital Signs
Temp Pulse Resp BP Pulse Ox
98 F 54 20 109/69 98
05/03/25 08:02 05/03/25 08:02 05/03/25 08:02 05/03/25 08:02 05/03/25 08:02
Intake & Output
05/01/25 05/02/25 05/03/25 05/04/25
06:59 06:59 06:59 06:59
Intake Total 480 / 480 1160 / 1160 1160 / 1160
Output Total 2750 / 2750 2975 / 2975 4650 / 4650
Balance -2270 / -2270 -1815 / -1815 -3490 / -3490
Physical Exam
Physical Exam
GEN: NAD. AAOx3
LUNGS: 2 L NC. No audible wheeze
CV: SR on tele
EXT: +1 B/L LE edema
NEURO: Gross non-focal
SKIN: No rash
--- NOTE | 2025-05-03 11:31 | W.PN.HOSP.TC ---
Today's Communication/Plan
-
Continue with aggressive diuresis with Zaroxolyn
Goal-directed medical therapy
Monitor blood pressure
Assessment / Plan
Assessment / Plan
Gen-AAOx3, NAD, obese
HEENT-NC, AT, anicteric, clear oral mm
Neck-supple
CV-reg, no M, +S1/S2
Lungs-clear bilaterally,
Abd-soft, NT, mild distention-no fluid wave
Ext-bilateral lower extremity edema from thighs to feet-mild improvement
Musculoskeletal-no cyanosis, clubbing
Skin-warm and dry
Neuro-grossly non-focal
Psych-calm, cooperative, talkative
74-year-old male past medical history of BPH, HFrEF and HFpEF CAD status post RCA stent, and hypertension, hydrocele, obesity, colon cancer, skin cancer, diabetes, glaucoma, DVT status post IVC filter in 2015, type SAMI is presented with worsening of
lower extremity edema and abdominal distention.
#Acute hypoxic respiratory failure -likely multifactorial etiology including acute pulmonary edema from heart failure exacerbation, pleural effusions, acute bronchitis with active wheezing, etc.
Weaned off oxygen to room air.
Chest x-ray demonstrates moderate cardiomegaly, moderate pulmonary edema, moderate size right and small left pleural effusions.
#Acute on chronic systolic and diastolic heart failure exacerbation
Clinically improving. BNP 21,800.
Continue IV 80 mg Lasix BID. Agree with additional dose of Zaroxolyn
Started patient on KCl with diuretics
Seems overtly volume overloaded.
Per outpatient [facility] records patient with EF of 15 to 20%. Patient was unable to tolerate goal-directed medical therapy due to hypotension in the past.
Repeat echo with EF of 25%. Stage II diastolic dysfunction.
Was on Bumex 2 mg twice daily prior to admission.
Seems to respond pretty well with Zaroxolyn and losing weight
Entresto and Aldactone added. Monitor blood pressure and creatinine closely
Defer to cardiology for ICD
#NSVT
Continue with KCl. Mag 2.1
Aldactone added
Heart rate now at 54
Can increase dose of Toprol if it increase episodes of NSVT
Cardiology following
#Acute bronchitis
wheezing improved.
s/p Short course of steroids. Continue inhalers, Mucinex, incentive spirometer.
#CAD with RCA stent on 01/26/25
Continue with Plavix, statin and beta-inna
Currently on Xarelto, and adjusted to 15 mg per cardiology recommendation and [place] trial data
#Essential hypertension
stable.
#DM2 without hyperglycemia -does not appear to be on medications for diabetes.
Continue low resistance insulin scale. Hemoglobin A1c 6.1%. Glucose 151 this morning.
History of stroke -details unknown.
SAMI - intolerant of CPAP.
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 Currently on Xarelto, and adjusted to 15 mg per cardiology recommendation and [place] trial data
Neurogenic bladder -chronic Hester catheter. Unclear when it was last changed.
Hydrocele -was due for treatment by his urologist but postponed due to respiratory status.
BPH -tamsulosin.
Chronic anemia -hemoglobin 10.4. Baseline unknown. Monitor for now.
Skin cancer status post surgery at [facility] [address]
History of colon cancer
Morbid obesity due to excess calories
History of epistaxis
History of thyroid nodule
Buttock stage II pressure injury POA
Offloading
Wound care
Full code
PT/OT -SNF on discharge.
Anticipated Discharge: > 48 hours
Subjective/Interval History
-
Date of Service: May 03, 2025
Patient states he passed increasing amount of urine
Objective Data
-
Labs:
Laboratory Results
05/03/25
06:23
WBC 7.6
Hgb 11.5 L
Hct 36.6 L
Plt Count 211
Sodium 140
Potassium 3.8
Chloride 90 L
Carbon Dioxide 41 H
BUN 40 H
Creatinine 0.9
Glucose 76
Calcium 8.3 L
Vital Signs:
Vital Signs
Temp Pulse Resp BP Pulse Ox
98 F 54 20 109/69 98
05/03/25 08:02 05/03/25 08:02 05/03/25 08:02 05/03/25 08:02 05/03/25 08:02
I&O
05/02/25 05/03/25 05/04/25
06:59 06:59 06:59
Intake Total 1160 / 1160 1160 / 1160
Output Total 2975 / 2975 4650 / 4650
Balance -1815 / -1815 -3490 / -3490
[2025-05-03 11:51] LABS: Glucose - Point of Care 103 mg/dl (70-99)
[2025-05-03] MEDS: ZAROXOLYN 2.5 MG PO (15:21)
[2025-05-03 16:44] LABS: Glucose - Point of Care 138 mg/dl (70-99)
--- NOTE | 2025-05-03 17:19 | CM ---
Patient continues on IV ABX. Will need SNF upon discharge. Will send referral back to [facility] so that current clinicals can be reviewed. Will confirm with patient's daughter that she wants patient to return to [facility] for SNF.
Plan: Case management will continue to follow and assist with discharge planning. [facility] when discharged.
[2025-05-03] MEDS: LIPITOR 80 MG PO (17:33)
[2025-05-03] MEDS: XALATAN OPHTHALMIC SOLUTION 1 DROP OPHTH (21:29)
[2025-05-03 21:35] LABS: Glucose - Point of Care 128 mg/dl (70-99)
[2025-05-04] VITALS (7 sets, daily range): BP systolic 102–132; BP diastolic 56–66; BMI 36.2
--- NOTE | 2025-05-04 07:30 | W.PN.CARDCBS ---
Addendum entered and electronically signed by Charles Mccann MD 05/04/25 13:28:
I saw and examined the patient on morning rounds.
The Industrial Equipment Mechanic's note was reviewed and I agree with the note.
Comment: Briefly, 74-year-old man past medical history of heart failure with severe reduced ejection fraction previously outfitted with a LifeVest who presents in acute heart failure
Remains volume overloaded on exam but supplemental oxygen was weaned off this morning
Continue IV Lasix twice daily
Hopefully will be able to transition back to oral diuretics in the next 24 to 48 hours
Continue low-dose Entresto
Increase spironolactone
Based on outpatient documentation he was previously on Coreg. Will start Coreg in place of metoprolol which he has been receiving here.
Avoid SGLT2 given scrotal infection
Continue Xarelto/Plavix/high intensity statin given history of coronary disease with recent PCI
Original Note:
Today's Communication / Plan
-
-cont diuresis with IV Lasix. Will hold metolazone today given brisk diuresis past 2 days
-increase Spironolactone to 25 mg daily (outpt dose)
-change BB to Coreg 3.125 mg bid (outpt dose)
-replete K- ordered extra 20 meq today
-wean O2
-PT/OT
Impression / Plan
-
PCP: Dr. Efrain Ma at rehab and sees a PCP as an outpatient
Card: Dr. Charles Sim at [facility]
Impression:
Admitted with acute hypoxia and CHF 04/29/2025
Recent hospitalizations at [facility] for sepsis,scrotal cellulitis, and heart failure-GDMT stopped due to hypotension
Acute on chronic HFrEF
ICM EF 15-20% by echo at [facility] 01/16/25, down to 5-10% by echo at [facility] 04/17/25
prescribed Life Vest at [facility] after 01/2025 admission with plan to recheck echo after 90 days of medical therapy (even though revascularized 01/26/25) then readmitted to [facility] 04/2025 and EF 5-10%, but no ICD placed due to sepsis
CAD
s/p PCI distal RCA at [facility] [place] 01/26/2025
h/o CVA
Sinus rhythm throughout admission, possible paroxysmal atrial fibrillation
Hyperlipidemia
Obstructive sleep apnea
Melanoma, was following at [facility], therapy interrupted by repeated admissions
Previous cardiovascular studies from [facility]:
Left heart cath 01/20/2025: 80% trifurcating distal RCA, 80% D2. Right heart cath not performed. Groin access not attempted due to ongoing groin discomfort/scrotal edema/hydrocele/IVC filter
Left heart cath 01/26/2025 successful PCI with RONN and PTCA to 99% distal RCA
Echo 01/16/2025: LVEF 15 to 20%
Echo 04/17/2025 LVEF 5 to 10%
Echo 05/01/2025: LVEF 25%, mild cLVH (1.2 cm), enlarged RV size and reduced RV systolic function, mild to moderate MR, mild TR, PAP 50 mmHg
Plan:
-Patient admitted with acute HFrEF and complex PMH 04/29/25, cardiology was able to obtain, review and summarize records from recent hospitalizations at [facility] as outlined within this note.
-Weight is down 7 lbs overnight and 21 lbs this admission with Lasix 80 mg IV BID and metolazone 2.5 mg past 2 days with more signif diuresis with use of Metolazone (wt down 15 lbs since starting Metolazone) and LE edema has significantly improved.
Dry weight unknown. Patient was taking Bumex 2 mg PO BID prior to admission. Cre stable, will continue to diurese. Of note, admission wt was 276 lbs when adm to [facility] w/ sepsis 04/17/2025.
-BUN/creat remain stable 35/1.0 05/04/2025
- K 3.6 -started KCl 20 meq BID on 05/02/2025. Started Spironolactone 12.5 mg daily 05/03. Will increase Spironolactone to 25 mg daily (in review of outpt records, pt previously on this dose). Will give additional KCl 20 meq today x 1 dose.
Addition/uptitration of Spironolactone may help with hypokalemia
-given h/o LV dysfxn and freq PVCs keep K>4, Mag >2. Mag 2.1 05/04.
-down to 1L O2 -wean to off
-EF 5-10% by echo at [facility] earlier this month, but looks closer to 25% by echo this admission.
-pt has been on Toprol 25 mg daily since this admission. In review of records from [facility], pt previously on Coreg 3.125 mg bid. Will switch BB to Coreg 3.125 mg bid starting tomorrow 05/05/2025, rec'd Toprol already today.
-restarted previously stopped Entresto 24/26 mg BID. Started on 05/02/2025. Has missed 2 doses due to low BP (SBP <110). Per outpt records, previously on Entresto 24/26 mg bid, 1.5 tabs [address]
-place tubigrip compression stockings
-Not a candidate for SGLT 2 inhibitors due to UTI/scrotal cellulitis
-Follow labs and VS, previous attempts at GDMT were limited by hypotension. BP has been 110s-132/60s
-Patient was being considered for AICD at [facility] after initial admission with acute HF and new ICM 01/2025. Patient had cardiac cath and RCA intervention at that time and Life Vest was placed, plan was for possible AICD pending 90 day echo,
this is what the records indicate as opposed to a 40% revascularization echo. Regardless, patient readmitted to [facility] earlier this month and echo repeated and EF was worse at 5-10%, but no AICD due to sepsis. Patient was recommended to
continue wearing Life Vest and follow up with ICD and cardiology as an outpatient for consideration of AICD.
-will discuss placement of ICD with EP
-telemetry personally reviewed: NSR 70-80s, with PVCs
-Troponin serially normal.
-s/p distal RCA RONN 01/26/2025
-Patient was taking Plavix 75 mg daily and Xarelto 20 mg daily prior to admission, but [place] trial data the patient's Xarelto dose should be 15 mg daily when taking along with Plavix in the setting of PCI. Currently ordered Plavix 75 mg daily and
Xarelto 15 mg daily as of 05/03/25
-cont high intensity statin Atorvastatin 80 mg daily
-Patient also reports a h/o melanoma on his back that was being followed at [facility], patient says that he had been referred for what sounds like Moh's surgery, but plan interrupted by repeated admissions as noted above.
-pt eventually to return to SNF for continued rehab
05/02/2025 -Received records from [facility] [place] -Reviewed cardiology consult note and discharge summary and was able to obtain more past medical history which includes distal RCA stent 01/26/2025, heart failure reduced EF
of 15 to 20%, DVT status post IVC filter in 2014, hypertension, obstructive sleep apnea. Admitted 04/16/2025 - 04/25/2025 for concern of cellulitis of scrotum and UTI. Was septic with blood pressures in the 70s/50, required initiation of Levophed and
was started on antibiotics. Cardiology was consulted regarding patient's GDMT and GDMT was stopped due to hypotension. He had previously been on Entresto, spironolactone, Farxiga, carvedilol. Because of hypotension he was only continued on
metoprolol 25 mg daily and Bumex. He was continued on Plavix and Xarelto. Plan to consider single-chamber ICD for primary prevention of sudden cardiac once infection cleared. 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
HPI: Patient came to [facility] ER 04/29/2025 from [facility] because of BNP 3396 and was admitted with acute HF unknown EF and cardiology consulted. Patient is not clear of the details of his PMH and states that he has been going to [facility] for at least 9
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 He says he is now following primarily at [facility] and was admitted there twice recently for what sounds like heart failure and
possibly CAD. Patient describes having a right IJ placed and being in ICU. Patient was transferred to [facility] and had labs there, the BNP was 3396 and he was transferred to [facility] ER for evaluation, he has never been evaluated in this healthcare
system. I checked in [facility] and there are no available records and they are either including looking at [facility]. When patient was transferred from [facility] he did not require supplemental oxygen but is now requiring 3 L NC continuously.
Progress Note - Creative Producer
Subjective
Date of Service: May 04, 2025
-wt down 7 lbs overnight, now down 21 lbs since admission. Renal fxn stable
-trying to advance HF regimen
Objective
Labs:
05/03/25 06:23
Labs
Hgb 11.5 g/dL (13.0-18.0) L 05/03/25 06:23
Hct 36.6 % (39.0-52.0) L 05/03/25 06:23
Plt Count 211 10^3/uL (130-400) 05/03/25 06:23
Sodium 140 mmol/L (135-145) 05/03/25 06:23
Potassium 3.8 mmol/L (3.5-5.1) 05/03/25 06:23
BUN 40 mg/dl (9-20) H 05/03/25 06:23
Creatinine 0.9 mg/dL (0.7-1.3) 05/03/25 06:23
Glucose 76 mg/dl (70-99) 05/03/25 06:23
Vital Signs and I&O:
Vital Signs
Temp Pulse Resp BP Pulse Ox
98.5 F 47 20 132/66 96
05/04/25 03:30 05/04/25 03:30 05/04/25 03:30 05/04/25 03:30 05/04/25 03:30
Vital Signs
Temp Pulse Resp BP Pulse Ox
98.5 F 47 20 132/66 96
05/04/25 03:30 05/04/25 03:30 05/04/25 03:30 05/04/25 03:30 05/04/25 03:30
Intake & Output
05/02/25 05/03/25 05/04/25 05/05/25
06:59 06:59 06:59 06:59
Intake Total 1160 / 1160 1160 / 1160 120 / 120
Output Total 2975 / 2975 4650 / 4650 6550 / 6550
Balance -1815 / -1815 -3490 / -3490 -6430 / -6430
Physical Exam
Physical Exam
GEN: No distress, awake, Ox3
HEENT: supple, anicteric, mmm
LUNGS: initially with exp wheezing, cleared with coughing
CV: Reg, S1/S2, 1/6 syst LSB, no murmur
ABD: soft, BS+, NT/ND
EXT: 1+ B/L LE edema
NEURO: Gross non-focal
SKIN: No rash
[2025-05-04 07:45] LABS: Glucose - Point of Care 86 mg/dl (70-99)
[2025-05-04] MEDS: NOVOLOG FLEXPEN-LOW RESISTANCE SC ×3 (08:51→16:39)
[2025-05-04] MEDS: LASIX 80 MG IV ×2 (08:52→16:58)
[2025-05-04] MEDS: MUCINEX 600 MG PO ×2 (08:53→20:12)
[2025-05-04] MEDS: PROTONIX 40 MG PO (08:53)
[2025-05-04] MEDS: PLAVIX 75 MG PO (08:53)
[2025-05-04] MEDS: ALDACTONE 12.5 MG PO (08:53)
[2025-05-04] MEDS: NEURONTIN 600 MG PO ×3 (08:53→21:18)
[2025-05-04] MEDS: ENTRESTO 24 MG/26 MG 1 TAB PO (08:53)
[2025-05-04] MEDS: KCL 20 MEQ PO ×3 (08:54→17:00)
[2025-05-04] MEDS: XARELTO 15 MG PO (08:54)
[2025-05-04] MEDS: TOPROL XL 25 MG PO (08:54)
[2025-05-04] MEDS: FLOMAX 0.4 MG PO (08:54)
[2025-05-04 09:38] LABS: Blood Urea Nitrogen 35 mg/dl (9-20); Calcium 8.6 mg/dl (8.4-10.2); Chloride 88 mmol/L (98-107); Estimated Creatinine Clearance 76 ml/min; Glucose 83 mg/dl (70-99); Magnesium 2.1 mg/dl (1.6-2.3); Potassium 3.6 mmol/L (3.5-5.1); Sodium 140 mmol/L (135-145); eGFR > 60.00
--- NOTE | 2025-05-04 10:30 | PN.CDI ---
CDI
- -
CDI:
Physician Documentation Request
Admit Date: 04/29/25 09:06
Dear Doctor Ella,
05/03 Cardiology PN: 'Acute on chronic HFrEF...04/2025 and EF 5-10%'
05/03 Hospitalist PN: 'Acute on chronic systolic and diastolic heart failure exacerbation'
Please provide further specificity regarding the most likely type of CHF you are evaluating, treating or monitoring.
Systolic
Systolic and diastolic
Other
Use of terms such as suspected, likely, concern for, or probable (associated with a specific diagnosis that is being evaluated, monitored, or treated as if it exists) are acceptable and can be coded in the inpatient setting, when documented at the
time of discharge.
Thank you,
Jennifer Hopson RN, BSN
CDI Specialist
Available via [place] text
Please use your independent medical judgment in providing your response.
[2025-05-04 10:48] LABS: Carbon Dioxide 46 mmol/L (22-30)
[2025-05-04] MEDS: ALPHAGAN 0.2% EYE DROPS 1 DROP OPHTH (11:14)
[2025-05-04] MEDS: PROSCAR 5 MG PO (11:15)
[2025-05-04] MEDS: DESENEX/MITRAZOL/ZEASORB 1 APPLIC TOPICAL ×2 (11:20→20:12)
--- NOTE | 2025-05-04 11:30 | WOUNDNOTE ---
WOC RN note: Spoke with CIRO Dyer who stated she changed patient's sacral silicone border foam this morning and stated sacral skin looks same as Thursday's photo. Manisha stated skin on patient's heels are intact. Will follow as needed.
[2025-05-04 12:12] LABS: Glucose - Point of Care 124 mg/dl (70-99)
--- NOTE | 2025-05-04 12:49 | W.PN.HOSP.TC ---
Today's Communication/Plan
-
Continue with diuresis
Blood pressure meds adjusted
Out of bed/therapy
Monitor blood pressure and creatinine closely
Continue with goal-directed medical therapy
Assessment / Plan
Assessment / Plan
Gen-AAOx3, NAD, obese
HEENT-NC, AT, anicteric, clear oral mm
Neck-supple
CV-reg, no M, +S1/S2
Lungs-clear bilaterally,
Abd-soft, NT, mild distention-no fluid wave
Ext-bilateral lower extremity edema from thighs to feet-mild improvement
Musculoskeletal-no cyanosis, clubbing
Skin-warm and dry
Neuro-grossly non-focal
Psych-calm, cooperative, talkative
74-year-old male past medical history of BPH, HFrEF and HFpEF CAD status post RCA stent, and hypertension, hydrocele, obesity, colon cancer, skin cancer, diabetes, glaucoma, DVT status post IVC filter in 2015, type SAMI is presented with worsening of
lower extremity edema and abdominal distention.
#Acute hypoxic respiratory failure -likely multifactorial etiology including acute pulmonary edema from heart failure exacerbation, pleural effusions, acute bronchitis with active wheezing, etc.
Weaned off oxygen to room air.
Chest x-ray demonstrates moderate cardiomegaly, moderate pulmonary edema, moderate size right and small left pleural effusions.
#Acute on chronic systolic and diastolic heart failure exacerbation
Clinically improving. BNP 21,800.
Continue IV 80 mg Lasix BID. Agree with additional dose of Zaroxolyn
Started patient on KCl with diuretics
Seems overtly volume overloaded. Losing weight
Per outpatient [facility] records patient with EF of 15 to 20%. Patient was unable to tolerate goal-directed medical therapy due to hypotension in the past.
Repeat echo with EF of 25%. Stage II diastolic dysfunction.
Was on Bumex 2 mg twice daily prior to admission.
Seems to respond pretty well with Zaroxolyn and losing weight
Entresto and Aldactone added. Monitor blood pressure and creatinine closely
Metoprolol transition to carvedilol
Defer to cardiology for ICD
Patient refused compression therapy lower extremity
#NSVT
Continue with KCl. Mag 2.1
Aldactone added
Heart rate now at 54
Can increase dose of Toprol if it increase episodes of NSVT
Cardiology following
#Acute bronchitis
wheezing improved.
s/p Short course of steroids. Continue inhalers, Mucinex, incentive spirometer.
#CAD with RCA stent on 01/26/25
Continue with Plavix, statin and beta-inna
Currently on Xarelto, and adjusted to 15 mg per cardiology recommendation and [place] trial data
#Essential hypertension
stable.
#DM2 without hyperglycemia -does not appear to be on medications for diabetes.
Continue low resistance insulin scale. Hemoglobin A1c 6.1%. Glucose 151 this morning.
History of stroke -details unknown.
SAMI - intolerant of CPAP.
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 Currently on Xarelto, and adjusted to 15 mg per cardiology recommendation and [place] trial data
Neurogenic bladder -chronic Hester catheter. Unclear when it was last changed.
Hydrocele -was due for treatment by his urologist but postponed due to respiratory status.
BPH -tamsulosin.
Chronic anemia -hemoglobin 10.4. Baseline unknown. Monitor for now.
Skin cancer status post surgery at [facility]
History of colon cancer
Morbid obesity due to excess calories
History of epistaxis
History of thyroid nodule
Buttock stage II pressure injury POA
Offloading
Wound care
Full code
PT/OT -SNF on discharge.
Anticipated Discharge: > 48 hours
Subjective/Interval History
-
Date of Service: May 04, 2025
Patient with good urinary output in the last 24 hours
Objective Data
-
Labs:
Laboratory Results
05/04/25
07:58
Sodium 140
Potassium 3.6
Chloride 88 L
Carbon Dioxide 46 H
BUN 35 H
Creatinine 1.0
Glucose 83
Calcium 8.6
Vital Signs:
Vital Signs
Temp Pulse Resp BP Pulse Ox
98.3 F 75 22 107/65 93
05/04/25 11:00 05/04/25 11:00 05/04/25 11:00 05/04/25 11:00 05/04/25 11:00
I&O
05/03/25 05/04/25 05/05/25
06:59 06:59 06:59
Intake Total 1160 / 1160 120 / 120
Output Total 4650 / 4650 6550 / 6550
Balance -3490 / -3490 -6430 / -6430
[2025-05-04 16:38] LABS: Glucose - Point of Care 128 mg/dl (70-99)
[2025-05-04] MEDS: LIPITOR 80 MG PO (17:00)
[2025-05-04] MEDS: ENTRESTO 24 MG/26 MG PO (20:11)
[2025-05-04] MEDS: XALATAN OPHTHALMIC SOLUTION 1 DROP OPHTH (21:18)
[2025-05-04 21:52] LABS: Glucose - Point of Care 148 mg/dl (70-99)
[2025-05-05] VITALS (8 sets, daily range): BP systolic 89–122; BP diastolic 43–65; PULSE 73–77; O2SAT 97; BMI 36.2
[2025-05-05] MEDS: FLOMAX 0.4 MG PO (07:49)
[2025-05-05] MEDS: ALDACTONE 25 MG PO (07:49)
[2025-05-05] MEDS: KCL 20 MEQ PO ×2 (07:50→17:14)
[2025-05-05] MEDS: MUCINEX 600 MG PO ×2 (07:50→21:49)
[2025-05-05] MEDS: PLAVIX 75 MG PO (07:50)
[2025-05-05] MEDS: NEURONTIN 600 MG PO ×3 (07:50→21:50)
[2025-05-05] MEDS: ENTRESTO 24 MG/26 MG 1 TAB PO (07:50)
[2025-05-05] MEDS: NOVOLOG FLEXPEN-LOW RESISTANCE SC ×3 (07:50→17:19)
[2025-05-05] MEDS: PROTONIX 40 MG PO (07:50)
[2025-05-05] MEDS: COREG 3.125 MG PO ×2 (07:50→21:50)
[2025-05-05 07:51] LABS: Glucose - Point of Care 116 mg/dl (70-99)
[2025-05-05] MEDS: LASIX 80 MG IV ×2 (07:51→17:15)
[2025-05-05] MEDS: XARELTO 15 MG PO (07:51)
[2025-05-05] MEDS: PROSCAR 5 MG PO (07:52)
[2025-05-05] MEDS: ALPHAGAN 0.2% EYE DROPS 1 DROP OPHTH (07:53)
[2025-05-05] MEDS: DESENEX/MITRAZOL/ZEASORB 1 APPLIC TOPICAL ×2 (07:57→21:51)
[2025-05-05 08:39] LABS: Blood Urea Nitrogen 37 mg/dl (9-20); Calcium 8.5 mg/dl (8.4-10.2); Chloride 88 mmol/L (98-107); Estimated Creatinine Clearance 69 ml/min; Glucose 82 mg/dl (70-99); Magnesium 2.2 mg/dl (1.6-2.3); Potassium 3.7 mmol/L (3.5-5.1); Sodium 143 mmol/L (135-145); eGFR > 60.00
[2025-05-05] MEDS: ZAROXOLYN 2.5 MG PO (09:50)
[2025-05-05 09:51] LABS: Carbon Dioxide 47 mmol/L (22-30)
--- NOTE | 2025-05-05 10:59 | WOUNDNOTE ---
WOC RN note: Patient sitting in chair. Scrotal redness and sacral/buttocks skin breakdown improved. Silicone border foam changed on sacral/buttocks. Air chair cushion given. Calazime ointment applied to tess/scrotal skin. Patient has a mild back
rash suspect possible from moisture. Desenex powder applied to back. Patient stated he had the doctor look at his back rash today and patient requested topical cream from the doctor. Moisture lotion applied to his legs. t/c SPD and order size F
Medigrip. Patient cannot tolerated the Surgigrip in his room. Patient denies a latex allergy. Will follow as needed.
[2025-05-05 12:00] LABS: Glucose - Point of Care 119 mg/dl (70-99)
--- NOTE | 2025-05-05 12:38 | W.PN.HOSP.TC ---
Today's Communication/Plan
-
Continue with aggressive diuresis
Monitor creatinine closely
ICD defer to cardiology
Assessment / Plan
Assessment / Plan
Gen-AAOx3, NAD, obese
HEENT-NC, AT, anicteric, clear oral mm
Neck-supple
CV-reg, no M, +S1/S2
Lungs-clear bilaterally,
Abd-soft, NT, mild distention-no fluid wave
Ext-bilateral lower extremity edema from thighs to feet-slowly improving
Musculoskeletal-no cyanosis, clubbing
Skin-warm and dry
Neuro-grossly non-focal
Psych-calm, cooperative, talkative
74-year-old male past medical history of BPH, HFrEF and HFpEF CAD status post RCA stent, and hypertension, hydrocele, obesity, colon cancer, skin cancer, diabetes, glaucoma, DVT status post IVC filter in 2014, type SAMI is presented with worsening of
lower extremity edema and abdominal distention.
#Acute hypoxic respiratory failure -likely multifactorial etiology including acute pulmonary edema from heart failure exacerbation, pleural effusions, acute bronchitis with active wheezing, etc.
Weaned off oxygen to room air.
Chest x-ray demonstrates moderate cardiomegaly, moderate pulmonary edema, moderate size right and small left pleural effusions.
#Acute on chronic systolic and diastolic heart failure exacerbation
Clinically improving. BNP 21,800.
Continue IV 80 mg Lasix BID. Agree with additional dose of Zaroxolyn
Started patient on KCl with diuretics
Seems overtly volume overloaded. Losing weight
Per outpatient [facility] records patient with EF of 15 to 20%. Patient was unable to tolerate goal-directed medical therapy due to hypotension in the past.
Repeat echo with EF of 25%. Stage II diastolic dysfunction.
Was on Bumex 2 mg twice daily prior to admission.
Seems to respond pretty well with Zaroxolyn and losing weight
Entresto and Aldactone added. Monitor blood pressure and creatinine closely
Metoprolol transition to carvedilol
Unclear if plan for ICD during this hospitalization
Patient refused compression therapy lower extremity
#NSVT
Continue with KCl. Mag 2.2
Aldactone added
Toprol transition to carvedilol. Monitor electrolytes closely.
Cardiology following
#Rash on the back
-?allergic versus pressure rash
-trial of hydrocortisone cream
#Acute bronchitis
wheezing improved.
s/p Short course of steroids. Continue inhalers, Mucinex, incentive spirometer.
#CAD with RCA stent on 01/26/25
Continue with Plavix, statin and beta-inna
Currently on Xarelto, and adjusted to 15 mg per cardiology recommendation and [place] trial data
#Essential hypertension
stable.
#DM2 without hyperglycemia -does not appear to be on medications for diabetes.
Continue low resistance insulin scale. Hemoglobin A1c 6.1%.
History of stroke -details unknown.
SAMI - intolerant of CPAP.
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 Currently on Xarelto, and adjusted to 15 mg per cardiology recommendation and [place] trial data
Neurogenic bladder -chronic Hester catheter. Unclear when it was last changed.
Hydrocele -was due for treatment by his urologist but postponed due to respiratory status.
BPH -tamsulosin.
Chronic anemia -hemoglobin 10.4. Baseline unknown. Monitor for now.
Skin cancer status post surgery at [facility]
History of colon cancer
Morbid obesity due to excess calories
History of epistaxis
History of thyroid nodule
Buttock stage II pressure injury POA
Offloading
Wound care
Full code
PT/OT -SNF on discharge.
Anticipated Discharge: > 48 hours
Subjective/Interval History
-
Date of Service: May 05, 2025
States a pruritic rash on back only
States a reduction lower extremity edema
Objective Data
-
Labs:
Laboratory Results
05/05/25
07:13
Sodium 143
Potassium 3.7
Chloride 88 L
Carbon Dioxide 47 H
BUN 37 H
Creatinine 1.1
Glucose 82
Calcium 8.5
Vital Signs:
Vital Signs
Temp Pulse Resp BP Pulse Ox
98.6 F 71 18 89/57 98
05/05/25 11:00 05/05/25 11:00 05/05/25 11:00 05/05/25 11:00 05/05/25 11:00
I&O
05/04/25 05/05/25 05/06/25
06:59 06:59 06:59
Intake Total 120 / 120 2039 / 2039
Output Total 6550 / 6550 4950 / 4950
Balance -6430 / -6430 -2910 / -2910
--- NOTE | 2025-05-05 12:56 | W.PN.CARDCBS ---
Addendum entered and electronically signed by Charles Mccann MD 05/05/25 14:13:
I saw and examined the patient.
The Parts Washer's note was reviewed and I agree with the note.
Comment: Briefly, 74-year-old man past medical history of heart failure with severely reduced ejection fraction previously outfitted with a LifeVest who presents in acute heart failure
Still mildly volume overloaded on exam
Back on supplemental oxygen this MA
Continue IV Lasix twice daily
Additional dose of metolazone today
Hopefully will be able to transition back to oral diuretics in the next 24 to 48 hours
Continue Entresto, spironolactone and Coreg
Avoid SGLT2 given scrotal infection
Continue Xarelto/Plavix/high intensity statin given history of coronary disease with recent PCI
Original Note:
Today's Communication / Plan
-
-repeat Metolazone again today
-back on his outpt GDMT meds and doses
-will discuss ICD with EP
Impression / Plan
-
PCP: Dr. Efrain Ma at rehab and sees a PCP as an outpatient
Card: Dr. Charles Sim at [facility]
Impression:
Admitted with acute hypoxia and CHF 04/29/2025
Recent hospitalizations at [facility] for sepsis,scrotal cellulitis, and heart failure-GDMT stopped due to hypotension
Acute on chronic HFrEF
ICM EF 15-20% by echo at [facility] 01/16/25, down to 5-10% by echo at [facility] 04/17/25
prescribed Life Vest at [facility] after 01/2025 admission with plan to recheck echo after 90 days of medical therapy (even though revascularized 01/26/25) then readmitted to [facility] 04/2025 and EF 5-10%, but no ICD placed due to sepsis
CAD
s/p PCI distal RCA at [facility] 01/26/2025
h/o CVA
Sinus rhythm throughout admission, possible paroxysmal atrial fibrillation
Hyperlipidemia
Obstructive sleep apnea
Melanoma, was following at [facility], therapy interrupted by repeated admissions
Previous cardiovascular studies from [facility]:
Left heart cath 01/20/2025: 80% trifurcating distal RCA, 80% D2. Right heart cath not performed. Groin access not attempted due to ongoing groin discomfort/scrotal edema/hydrocele/IVC filter
Left heart cath 01/26/2025 successful PCI with RONN and PTCA to 99% distal RCA
Echo 01/16/2025: LVEF 15 to 20%
Echo 04/17/2025 LVEF 5 to 10%
Echo 05/01/2025: LVEF 25%, mild cLVH (1.2 cm), enlarged RV size and reduced RV systolic function, mild to moderate MR, mild TR, PAP 50 mmHg
Plan:
-Patient admitted with acute HFrEF and complex PMH 04/29/25, cardiology was able to obtain, review and summarize records from recent hospitalizations at [facility] as outlined within this note.
-Weight is down 21 lbs this admission with Lasix 80 mg IV BID and metolazone 2.5 mg past 2 days with more signif diuresis with use of Metolazone. Held Metolazone 05/04 but will give again today as weight unchanged overnight. LE edema has
significantly improved but he's back on oxygen. Dry weight unknown. Patient was taking Bumex 2 mg PO BID prior to admission. Cre stable, will continue to diurese. Of note, admission wt was 276 lbs when adm to [facility] w/ sepsis 04/17/2025.
-creat starting to trend up, 1.1 today 05/05.
- K 3.7 -on KCl 20 meq BID and Spironolactone increased to 25 mg daily 05/04 (in review of outpt records, pt previously on this dose). Will give additional KCl 40 meq today since getting Metolazone today 05/05.
-given h/o LV dysfxn and freq PVCs keep K>4, Mag >2. Mag 2.2 05/05.
-down to 1L O2 -wean to off
-EF 5-10% by echo at [facility] earlier this month, but looks closer to 25% by echo this admission.
-pt initially on Toprol 25 mg daily this admission but then switched to Coreg 3.125 mg bid, starting today 05/05, which he was on prior to admission
-restarted previously stopped Entresto 24/26 mg BID. Started on 05/02/2025. Has missed 2 doses due to low BP (SBP <110). Per outpt records, previously on Entresto 24/26 mg bid, 1.5 tabs BID.
-tubigrip compression stockings
-Not a candidate for SGLT 2 inhibitors due to UTI/scrotal cellulitis
-Patient was being considered for AICD at [facility] after initial admission with acute HF and new ICM 01/2025. Patient had cardiac cath and RCA intervention at that time and Life Vest was placed, plan was for possible AICD pending 90 day echo,
this is what the records indicate as opposed to a 40% revascularization echo. Regardless, patient readmitted to [facility] earlier this month and echo repeated and EF was worse at 5-10%, but no AICD due to sepsis. Patient was recommended to
continue wearing Life Vest and follow up with ICD and cardiology as an outpatient for consideration of AICD.
-will discuss placement of ICD with EP
-telemetry personally reviewed: NSR 70-80s, with PVCs
-Troponin serially normal.
-s/p distal RCA RONN 01/26/2025
-Patient was taking Plavix 75 mg daily and Xarelto 20 mg daily prior to admission, but [place] trial data the patient's Xarelto dose should be 15 mg daily when taking along with Plavix in the setting of PCI. Currently ordered Plavix 75 mg daily and
Xarelto 15 mg daily as of 05/03/25
-cont high intensity statin Atorvastatin 80 mg daily
-Patient also reports a h/o melanoma on his back that was being followed at [facility], patient says that he had been referred for what sounds like Moh's surgery, but plan interrupted by repeated admissions as noted above.
-he would like to f/u for this condition locally as he does not think he will be able to get back to [facility]
-pt eventually to return to SNF for continued rehab
05/02/2025 -Received records from [facility] [place] -Reviewed cardiology consult note and discharge summary and was able to obtain more past medical history which includes distal RCA stent 01/26/2025, heart failure reduced EF
of 15 to 20%, DVT status post IVC filter in 2014, hypertension, obstructive sleep apnea. Admitted 04/16/2025 - 04/25/2025 for concern of cellulitis of scrotum and UTI. Was septic with blood pressures in the 70s/50, required initiation of Levophed and
was started on antibiotics. Cardiology was consulted regarding patient's GDMT and GDMT was stopped due to hypotension. He had previously been on Entresto, spironolactone, Farxiga, carvedilol. Because of hypotension he was only continued on
metoprolol 25 mg daily and Bumex. He was continued on Plavix and Xarelto. Plan to consider single-chamber ICD for primary prevention of sudden cardiac once infection cleared. Had narrow QRS so not thought to be a [employer] candidate.
HPI: Patient came to [facility] ER 04/29/2025 from [facility] because of BNP 3396 and was admitted with acute HF unknown EF and cardiology consulted. Patient is not clear of the details of his [facility] and states that he has been going to [facility] for at least 9
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 He says he is now following primarily at [facility] and was admitted there twice recently for what sounds like heart failure and
possibly CAD. Patient describes having a right IJ placed and being in ICU. Patient was transferred to [facility] and had labs there, the BNP was 3396 and he was transferred to [facility] ER for evaluation, he has never been evaluated in this healthcare
system. I checked in [facility] and there are no available records and they are either including looking at [facility]. When patient was transferred from [facility] he did not require supplemental oxygen but is now requiring 3 L NC continuously.
Progress Note - Budder
Subjective
Date of Service: May 05, 2025
-back on 2L O2
-tolerating uptitration of GDMT, currently on Entresto 24-26 mg bid, Coreg 3.125 mg bid, Spironolactone 25 mg daily
Objective
Labs:
05/03/25 06:23
05/05/25 07:13
Labs
Hgb 11.5 g/dL (13.0-18.0) L 05/03/25 06:23
Hct 36.6 % (39.0-52.0) L 05/03/25 06:23
Plt Count 211 10^3/uL (130-400) 05/03/25 06:23
Sodium 143 mmol/L (135-145) 05/05/25 07:13
Potassium 3.7 mmol/L (3.5-5.1) 05/05/25 07:13
BUN 37 mg/dl (9-20) H 05/05/25 07:13
Creatinine 1.1 mg/dL (0.7-1.3) 05/05/25 07:13
Glucose 82 mg/dl (70-99) 05/05/25 07:13
Vital Signs and I&O:
Vital Signs
Temp Pulse Resp BP Pulse Ox
98.6 F 71 18 89/57 98
05/05/25 11:00 05/05/25 11:00 05/05/25 11:00 05/05/25 11:00 05/05/25 11:00
Vital Signs
Temp Pulse Resp BP Pulse Ox
98.6 F 71 18 89/57 98
05/05/25 11:00 05/05/25 11:00 05/05/25 11:00 05/05/25 11:00 05/05/25 11:00
Intake & Output
05/03/25 05/04/25 05/05/25 05/06/25
06:59 06:59 06:59 06:59
Intake Total 1160 / 1160 120 / 120 2039 / 2039
Output Total 4650 / 4650 6550 / 6550 4950 / 4950
Balance -3490 / -3490 -6430 / -6430 -2910 / -2910
Physical Exam
Physical Exam
GEN: No distress, awake, Ox3
HEENT: supple, anicteric, mmm
LUNGS: CTA, no wheezes/rales
CV: Reg, S1/S2, 1/6 syst LSB
ABD: soft, BS+, NT/ND
EXT: trace LE edema. +scrotal edema
NEURO: Gross non-focal
SKIN: No rash
[2025-05-05] MEDS: HYDROCORTISONE 1% CREAM 1 APPLIC TOPICAL ×2 (13:58→21:50)
[2025-05-05] MEDS: LIPITOR 80 MG PO (17:15)
[2025-05-05 17:20] LABS: Glucose - Point of Care 112 mg/dl (70-99)
[2025-05-05 21:22] LABS: Glucose - Point of Care 121 mg/dl (70-99)
[2025-05-05] MEDS: XALATAN OPHTHALMIC SOLUTION 1 DROP OPHTH (21:49)
[2025-05-05] MEDS: ENTRESTO 24 MG/26 MG PO (21:50)
[2025-05-06 03:19] VITALS: BP 96/56
[2025-05-06 06:00] VITALS: BMI 33.4
[2025-05-06 07:23] LABS: Blood Urea Nitrogen 38 mg/dl (9-20); Calcium 8.5 mg/dl (8.4-10.2); Chloride 87 mmol/L (98-107); Estimated Creatinine Clearance 66 ml/min; Glucose 87 mg/dl (70-99); Magnesium 2.2 mg/dl (1.6-2.3); Potassium 3.8 mmol/L (3.5-5.1); Sodium 140 mmol/L (135-145); eGFR > 60.00
[2025-05-06 07:33] LABS: Glucose - Point of Care 263 mg/dl (70-99)
--- NOTE | 2025-05-06 07:53 | W.PN.CARDCBS ---
Addendum entered and electronically signed by Mumtaz Link MD 05/06/25 10:45:
Patient seen and examined
Agree with DISPLAY ARTIST note and assessment
Agree with DISPLAY ARTIST plan
Diuresed more than 3 L overnight with stable lab parameters requiring mild potassium repletion
����Physical Exam
���������������������General:��no apparent distress, not acutely ill
���������������������������Neck:��supple. no meningeal signs. normal psoterior pharynx
������������������������
���������������������������Heart:��s1/s2 regular rate and rhythm, no murmur. equal radial pulses.
��������������������������Lungs: ��no acute respiratory distress. clear bilaterally
����������������������Abdomen:�normal bowel sounds. not tender. no CVAT
��������������������������Neuro:��alert and oriented. no focal neurological deficits
������������������������������Skin: ��no rash
�����������������������Psychiatric:�well kept. interactive and cooperative
�����������������������Extremities:��no edema. no calf tenderness. negative homans. good distal pulses
PCP: Dr. Efrain Ma at rehab and sees a PCP as an outpatient
Card: Dr. Charles Sim at [facility]
Impression:
Admitted with acute hypoxia and CHF 04/29/2025
Recent hospitalizations at [facility] for sepsis,scrotal cellulitis, and heart failure-GDMT stopped due to hypotension
Acute on chronic HFrEF
ICM EF 15-20% by echo at [facility] 01/16/25, down to 5-10% by echo at [facility] 04/17/25
prescribed Life Vest at [facility] after 01/2025 admission with plan to recheck echo after 90 days of medical therapy (even though revascularized 01/26/25) then readmitted to [facility] 04/2025 and EF 5-10%, but no ICD placed due to sepsisCAD
s/p PCI distal RCA at [facility] 01/26/2025h/o CVA
Sinus rhythm throughout admission, possible paroxysmal atrial fibrillation
Hyperlipidemia
Obstructive sleep apnea
Melanoma, was following at [facility], therapy interrupted by repeated admissions
DVT- on Xarelto, previously had IVC filter
Previous cardiovascular studies from [facility]:
Left heart cath 01/20/2025: 80% trifurcating distal RCA, 80% D2. Right heart cath not performed. Groin access not attempted due to ongoing groin discomfort/scrotal edema/hydrocele/IVC filter
Left heart cath 01/26/2025 successful PCI with RONN and PTCA to 99% distal RCA
Echo 01/16/2025: LVEF 15 to 20%
Echo 04/17/2025 LVEF 5 to 10%
Echo 05/01/2025: LVEF 25%, mild cLVH (1.2 cm), enlarged RV size and reduced RV systolic function, mild to moderate MR, mild TR, PAP 50 mmHg
Plan:
-Patient admitted with acute HFrEF and complex PMH 04/29/25, cardiology was able to obtain, review and summarize records from recent hospitalizations at [facility] as outlined within this note.
-martin re-weigh this am as wt reportedly down 19 lbs overnight to 219 lbs?? Wt on admit 259 lbs. Contiues on Lasix 80 mg IV BID and intermittant doses metolazone 2.5 mg -last dose 05/05.Has more signif diuresis with use of Metolazone. Remains on
oxygen and c/o GUNDERSON. Dry weight unknown. Patient was taking Bumex 2 mg PO BID prior to admission. Of note, admission wt was 276 lbs when adm to [facility] w/ sepsis 04/17/2025.
-creat stable 1.1 today 05/06.
-Telemetry personally reviewed: Normal sinus rhythm, PVCs, bigeminy, couplets, runs of NSVT 22 beats, 11 beats, 17 beats
- K 3.8 -on KCl 20 meq BID will given additional KCl 40 meq today 05/06
-given h/o LV dysfxn and freq PVCs keep K>4, Mag >2. Mag 2.2 05/06.
-Will uptitrate Coreg to 6.25 mg twice daily
- Tentative placement of single-chamber ICD on 05/08/2025 given ischemic cardiomyopathy LVEF 25% despite GDMT. QRS 160 ms.
-Will repeat 12 lead EKG to reassess QRS and check QTc in setting of NSVT
-down to 1L O2 -wean to off
-EF 5-10% by echo at [facility] earlier this month, but looks closer to 25% by echo this admission.
-pt initially on Toprol 25 mg daily this admission but then switched to Coreg 3.125 mg bid, uptitrate due to NSVT. Will increase to 6.25 twice daily Coreg given increased ventricular tachycardia
-restarted previously stopped Entresto 24/26 mg BID. Started on 05/02/2025. Has missed 2 doses due to low BP (SBP <110). Per outpt records, previously on Entresto 24/26 mg bid, 1.5 tabs BID.
-tubigrip compression stockings
-Not a candidate for SGLT 2 inhibitors due to UTI/scrotal cellulitis
-pt intends to switch cardiac care to [place] so will need follow-up through [facility].
-Patient was being considered for AICD at [facility] after initial admission with acute HF and new ICM 01/2025. Patient had cardiac cath and RCA intervention at that time and Life Vest was placed, plan was for possible AICD pending 90 day echo,
this is what the records indicate as opposed to a 40% revascularization echo. Regardless, patient readmitted to [facility] earlier this month and echo repeated and EF was worse at 5-10%, but no AICD due to sepsis, scrotal cellultiis. Patient
was recommended to continue wearing Life Vest and follow up with ICD and cardiology as an outpatient for consideration of AICD once no further evidence of infection. Per records from [facility] he completed an IV antibiotics course with
ceftriaxone while there.. Patient has not required antibiotics during this admission. His echocardiogram from this hospitalization which is greater than 3 months from revascularization and on greater than 3 months of guideline directed medical
therapy as tolerated demonstrates an ejection fraction of less than 35% as well as nonsustained ventricular tachycardia. He is no longer wearing LifeVest. He does have Mohs surgery for melanoma on his back although it appears that his life
expectancy should exceed 1 year. He has a scar in his left chest suggestive of a prior port which he tells me he was only in for a few days.
-tentative SC ICD on 05/08�[facility] keep him n.p.o. after midnight for Thursday and hold his oral anticoagulation Xarelto Thursday evening. I will discuss with my partner Dr. Wilkes and either we would place ICD on Thursday or bring back in the next 3 to
4 weeks as an outpatient. He wants to continue his care here at [place] and as such we will place on our EP schedule for Thursday. Otherwise if there are medical contraindications for Thursday we will bring him back as an outpatient. He is
right-handed and would plan to add a left-sided IV and as long as his subclavian vein is patent would place left-sided. Reasonable for single-chamber device as he has a QRS duration of 160 ms and relatively normal sinus rates.
-Troponin serially normal.
-s/p distal RCA RONN 01/26/2025
-Patient was taking Plavix 75 mg daily and Xarelto 20 mg daily prior to admission, but [facility] trial data the patient's Xarelto dose should be 15 mg daily when taking along with Plavix in the setting of PCI. Currently ordered Plavix 75 mg daily and
Xarelto 15 mg daily as of 05/03/25
-cont high intensity statin Atorvastatin 80 mg daily
-Patient also reports a h/o melanoma on his back that was being followed at [facility], patient says that he had been referred for what sounds like Moh's surgery, but plan interrupted by repeated admissions as noted above.
-he would like to f/u for this condition locally as he does not think he will be able to get back to [facility]. I reiterated to the patient that is very important that he has either follow-up at [place] or local follow-up and has this melanoma
addressed as soon as possible.
-pt eventually to return to SNF for continued rehab
Original Note:
Today's Communication / Plan
-
Uptitrate Coreg
Replete K
Check twelve-lead EKG
Possible ICD on Thursday
Impression / Plan
-
PCP: Dr. Efrain Ma at rehab and sees a PCP as an outpatient
Card: Dr. Charles Sim at [facility]
Impression:
Admitted with acute hypoxia and CHF 04/29/2025
Recent hospitalizations at [facility] for sepsis,scrotal cellulitis, and heart failure-GDMT stopped due to hypotension
Acute on chronic HFrEF
ICM EF 15-20% by echo at [facility] 01/16/25, down to 5-10% by echo at [facility] 04/17/25
prescribed Life Vest at [facility] after 01/2025 admission with plan to recheck echo after 90 days of medical therapy (even though revascularized 01/26/25) then readmitted to [facility] 04/2025 and EF 5-10%, but no ICD placed due to sepsis
CAD
s/p PCI distal RCA at [facility] 01/26/2025
h/o CVA
Sinus rhythm throughout admission, possible paroxysmal atrial fibrillation
Hyperlipidemia
Obstructive sleep apnea
Melanoma, was following at [facility], therapy interrupted by repeated admissions
DVT- on Xarelto, previously had IVC filter
Previous cardiovascular studies from [facility]:
Left heart cath 01/20/2025: 80% trifurcating distal RCA, 80% D2. Right heart cath not performed. Groin access not attempted due to ongoing groin discomfort/scrotal edema/hydrocele/IVC filter
Left heart cath 01/26/2025 successful PCI with RONN and PTCA to 99% distal RCA
Echo 01/16/2025: LVEF 15 to 20%
Echo 04/17/2025 LVEF 5 to 10%
Echo 05/01/2025: LVEF 25%, mild cLVH (1.2 cm), enlarged RV size and reduced RV systolic function, mild to moderate MR, mild TR, PAP 50 mmHg
Plan:
-Patient admitted with acute HFrEF and complex PMH 04/29/25, cardiology was able to obtain, review and summarize records from recent hospitalizations at [facility] as outlined within this note.
-martin re-weigh this am as wt reportedly down 19 lbs overnight to 219 lbs?? Wt on admit 259 lbs. Contiues on Lasix 80 mg IV BID and intermittant doses metolazone 2.5 mg -last dose 05/05.Has more signif diuresis with use of Metolazone. Remains on
oxygen and c/o GUNDERSON. Dry weight unknown. Patient was taking Bumex 2 mg PO BID prior to admission. Of note, admission wt was 276 lbs when adm to [facility] w/ sepsis 04/17/2025.
-creat stable 1.1 today 05/06.
-Telemetry personally reviewed: Normal sinus rhythm, PVCs, bigeminy, couplets, runs of NSVT 22 beats, 11 beats, 17 beats
- K 3.8 -on KCl 20 meq BID will given additional KCl 40 meq today 05/06
-given h/o LV dysfxn and freq PVCs keep K>4, Mag >2. Mag 2.2 05/06.
-Will uptitrate Coreg to 6.25 mg twice daily
- Tentative placement of single-chamber ICD on 05/08/2025 given ischemic cardiomyopathy LVEF 25% despite GDMT. QRS 160 ms.
-Will repeat 12 lead EKG to reassess QRS and check QTc in setting of NSVT
-down to 1L O2 -wean to off
-EF 5-10% by echo at [facility] earlier this month, but looks closer to 25% by echo this admission.
-pt initially on Toprol 25 mg daily this admission but then switched to Coreg 3.125 mg bid, uptitrate due to NSVT.
-restarted previously stopped Entresto 24/26 mg BID. Started on 05/02/2025. Has missed 2 doses due to low BP (SBP <110). Per outpt records, previously on Entresto 24/26 mg bid, 1.5 tabs BID.
-tubigrip compression stockings
-Not a candidate for SGLT 2 inhibitors due to UTI/scrotal cellulitis
-pt intends to switch cardiac care to [place] so will need follow-up through [facility].
-Patient was being considered for AICD at [facility] after initial admission with acute HF and new ICM 01/2025. Patient had cardiac cath and RCA intervention at that time and Life Vest was placed, plan was for possible AICD pending 90 day echo,
this is what the records indicate as opposed to a 40% revascularization echo. Regardless, patient readmitted to [facility] earlier this month and echo repeated and EF was worse at 5-10%, but no AICD due to sepsis, scrotal cellultiis. Patient
was recommended to continue wearing Life Vest and follow up with ICD and cardiology as an outpatient for consideration of AICD once no further evidence of infection. Per records from [facility] he completed an IV antibiotics course with
ceftriaxone while there.. Patient has not required antibiotics during this admission
-tentative SC ICD on 05/08
-Troponin serially normal.
-s/p distal RCA RONN 01/26/2025
-Patient was taking Plavix 75 mg daily and Xarelto 20 mg daily prior to admission, but [facility] trial data the patient's Xarelto dose should be 15 mg daily when taking along with Plavix in the setting of PCI. Currently ordered Plavix 75 mg daily and
Xarelto 15 mg daily as of 05/03/25
-cont high intensity statin Atorvastatin 80 mg daily
-Patient also reports a h/o melanoma on his back that was being followed at [facility], patient says that he had been referred for what sounds like Moh's surgery, but plan interrupted by repeated admissions as noted above.
-he would like to f/u for this condition locally as he does not think he will be able to get back to [facility]
-pt eventually to return to SNF for continued rehab
[facility]02[facility]20[facility]Reviewed cardiology consult note and discharge summary and was able to obtain more past medical history which includes distal RCA stent 01/26/2025, heart failure reduced EF
of 15 to 20%, DVT status post IVC filter in 2014, hypertension, obstructive sleep apnea. Admitted 04/16/2025 - 04/25/2025 for concern of cellulitis of scrotum and UTI. Was septic with blood pressures in the 70s/50, required initiation of Levophed and
was started on antibiotics. Cardiology was consulted regarding patient's GDMT and GDMT was stopped due to hypotension. He had previously been on Entresto, spironolactone, Farxiga, carvedilol. Because of hypotension he was only continued on
metoprolol 25 mg daily and Bumex. He was continued on Plavix and Xarelto. Plan to consider single-chamber ICD for primary prevention of sudden cardiac once infection cleared. Had narrow QRS so not thought to be a [employer] candidate.
HPI: Patient came to [facility] ER 04/29/2025 from [facility] because of BNP 3396 and was admitted with acute HF unknown EF and cardiology consulted. Patient is not clear of the details of his [facility] and states that he has been going to [facility] for at least 9
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 He says he is now following primarily at [facility] and was admitted there twice recently for what sounds like heart failure and
possibly CAD. Patient describes having a right IJ placed and being in ICU. Patient was transferred to [facility] and had labs there, the BNP was 3396 and he was transferred to [facility] ER for evaluation, he has never been evaluated in this healthcare
system. I checked in [facility] and there are no available records and they are either including looking at [facility]. When patient was transferred from [facility] he did not require supplemental oxygen but is now requiring 3 L NC continuously.
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
Subjective
Date of Service: May 06, 2025
Having NSVT on telemetry
Denies lightheadedness, palps
No chest pain
Continues short of breath with exertion and on O2
Objective
Labs:
05/03/25 06:23
05/06/25 06:25
Labs
Hgb 11.5 g/dL (13.0-18.0) L 05/03/25 06:23
Hct 36.6 % (39.0-52.0) L 05/03/25 06:23
Plt Count 211 10^3/uL (130-400) 05/03/25 06:23
Sodium 140 mmol/L (135-145) 05/06/25 06:25
Potassium 3.8 mmol/L (3.5-5.1) 05/06/25 06:25
BUN 38 mg/dl (9-20) H 05/06/25 06:25
Creatinine 1.1 mg/dL (0.7-1.3) 05/06/25 06:25
Glucose 87 mg/dl (70-99) 05/06/25 06:25
Vital Signs and I&O:
Vital Signs
Temp Pulse Resp BP Pulse Ox
98.7 F 67 20 96/56 97
05/06/25 03:19 05/06/25 03:19 05/06/25 03:19 05/06/25 03:19 05/06/25 03:19
Vital Signs
Temp Pulse Resp BP Pulse Ox
98.7 F 67 20 96/56 97
05/06/25 03:19 05/06/25 03:19 05/06/25 03:19 05/06/25 03:19 05/06/25 03:19
Intake & Output
05/04/25 05/05/25 05/06/25 05/07/25
06:59 06:59 06:59 06:59
Intake Total 120 / 120 2040 / 2040 1040 / 1040
Output Total 6550 / 6550 4950 / 4950 4215 / 4215
Balance -6430 / -6430 -2910 / -2910 -3175 / -3175
Physical Exam
Physical Exam
GEN: No distress, awake, Ox3
HEENT: supple, anicteric, mmm
LUNGS: Crackles at bases
CV: Reg, S1/S2, 1/6 syst LSB,
ABD: soft, BS+, NT/ND
EXT: Trace lower extremity edema
NEURO: Gross non-focal
SKIN: No rash
[2025-05-06 07:55] VITALS: BP 108/53
[2025-05-06 08:29] LABS: Carbon Dioxide 43 mmol/L (22-30)
[2025-05-06] MEDS: NEURONTIN 600 MG PO ×3 (09:37→21:52)
[2025-05-06] MEDS: ALDACTONE 25 MG PO (09:38)
[2025-05-06] MEDS: PROTONIX 40 MG PO (09:38)
[2025-05-06] MEDS: XARELTO 15 MG PO (09:38)
[2025-05-06] MEDS: MUCINEX 600 MG PO ×2 (09:38→21:52)
[2025-05-06] MEDS: KCL 20 MEQ PO ×2 (09:39→16:52)
[2025-05-06] MEDS: NOVOLOG FLEXPEN-LOW RESISTANCE 3 UNITS SC (09:39)
[2025-05-06] MEDS: PLAVIX 75 MG PO (09:39)
[2025-05-06] MEDS: PROSCAR 5 MG PO (09:39)
[2025-05-06] MEDS: ALPHAGAN 0.2% EYE DROPS 1 DROP OPHTH (09:40)
[2025-05-06] MEDS: DESENEX/MITRAZOL/ZEASORB 1 APPLIC TOPICAL ×2 (09:40→21:51)
[2025-05-06] MEDS: COREG 3.125 MG PO (09:40)
[2025-05-06] MEDS: FLOMAX 0.4 MG PO (09:41)
[2025-05-06] MEDS: ENTRESTO 24 MG/26 MG PO ×2 (09:41→21:51)
[2025-05-06] MEDS: LASIX 80 MG IV ×2 (09:42→16:51)
[2025-05-06] MEDS: HYDROCORTISONE 1% CREAM 1 APPLIC TOPICAL ×2 (09:42→21:51)
[2025-05-06] MEDS: KCL 40 MEQ PO (09:43)
--- NOTE | 2025-05-06 11:12 | W.PN.HOSP.TC ---
Today's Communication/Plan
-
Continue with IV diuresis
Monitor lites closely
Creatinine holding
Plan for tentative ICD on Thursday
Assessment / Plan
Assessment / Plan
Gen-AAOx3, NAD, obese
HEENT-NC, AT, anicteric, clear oral mm
Neck-supple
CV-reg, no M, +S1/S2
Lungs-clear bilaterally,
Abd-soft, NT, obese
Ext-bilateral lower extremity edema from thighs to feet-slowly improving
Musculoskeletal-no cyanosis, clubbing
Skin-warm and dry
Neuro-grossly non-focal
Psych-calm, cooperative, talkative
74-year-old male past medical history of BPH, HFrEF and HFpEF CAD status post RCA stent, and hypertension, hydrocele, obesity, colon cancer, skin cancer, diabetes, glaucoma, DVT status post IVC filter in 2014, type SAMI is presented with worsening of
lower extremity edema and abdominal distention.
#Acute hypoxic respiratory failure -likely multifactorial etiology including acute pulmonary edema from heart failure exacerbation, pleural effusions, acute bronchitis with active wheezing, etc.
Weaned off oxygen to room air.
Chest x-ray demonstrates moderate cardiomegaly, moderate pulmonary edema, moderate size right and small left pleural effusions.
#Acute on chronic systolic and diastolic heart failure exacerbation
Clinically improving. BNP 21,800.
Continue IV 80 mg Lasix BID. Agree with additional dose of Zaroxolyn
Started patient on KCl with diuretics
Seems overtly volume overloaded. Losing weight
Per outpatient [facility] records patient with EF of 15 to 20%. Patient was unable to tolerate goal-directed medical therapy due to hypotension in the past.
Repeat echo with EF of 25%. Stage II diastolic dysfunction.
Was on Bumex 2 mg twice daily prior to admission.
Seems to respond pretty well with Zaroxolyn and losing weight
Entresto and Aldactone added. Monitor blood pressure and creatinine closely
Metoprolol transition to carvedilol
Cardiology planning for ICD tentatively on Thursday
Patient refused compression therapy lower extremity
#NSVT with history of reduced ejection fraction
Continue with KCl.
Aldactone added
Toprol transition to carvedilol. Monitor electrolytes closely.
Cardiology planning for ICD tentatively on Thursday
Cardiology following
#Rash on the back
?allergic versus pressure rash
trial of hydrocortisone cream
Significant improvement
#Acute bronchitis
wheezing improved.
s/p Short course of steroids. Continue inhalers, Mucinex, incentive spirometer.
#CAD with RCA stent on 01/26/25
Continue with Plavix, statin and beta-inna
Currently on Xarelto, and adjusted to 15 mg per cardiology recommendation and [place] trial data
#Essential hypertension
stable.
#DM2 without hyperglycemia -does not appear to be on medications for diabetes.
Continue low resistance insulin scale. Hemoglobin A1c 6.1%.
History of stroke -details unknown.
SAMI - intolerant of CPAP.
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 Currently on Xarelto, and adjusted to 15 mg per cardiology recommendation and [place] trial data
Neurogenic bladder -chronic Hester catheter. Unclear when it was last changed.
Hydrocele -was due for treatment by his urologist but postponed due to respiratory status.
BPH -tamsulosin.
Chronic anemia -hemoglobin 11.5. Baseline unknown. Monitor for now.
Skin cancer status post surgery at [facility]
History of colon cancer
Morbid obesity due to excess calories
History of epistaxis
History of thyroid nodule
Buttock stage II pressure injury POA
Offloading
Wound care
Full code
PT/OT -SNF on discharge.
Anticipated Discharge: > 48 hours
Subjective/Interval History
-
Date of Service: May 06, 2025
States continues to have improvement in lower extremity edema
Objective Data
-
Labs:
Laboratory Results
05/06/25
06:25
Sodium 140
Potassium 3.8
Chloride 87 L
Carbon Dioxide 43 H
BUN 38 H
Creatinine 1.1
Glucose 87
Calcium 8.5
Vital Signs:
Vital Signs
Temp Pulse Resp BP Pulse Ox
98.4 F 63 20 108/53 97
05/06/25 07:55 05/06/25 07:55 05/06/25 07:55 05/06/25 07:55 05/06/25 10:52
I&O
05/05/25 05/06/25 05/07/25
06:59 06:59 06:59
Intake Total 2039 / 2039 1040 / 1040
Output Total 4950 / 4950 4215 / 4215
Balance -2910 / -2910 -3175 / -3175
[2025-05-06 11:21] VITALS: BP 96/54
[2025-05-06 11:36] LABS: Glucose - Point of Care 93 mg/dl (70-99)
[2025-05-06] MEDS: NOVOLOG FLEXPEN-LOW RESISTANCE SC ×2 (12:23→16:36)
[2025-05-06 15:34] VITALS: BP 94/58
[2025-05-06 16:32] LABS: Glucose - Point of Care 107 mg/dl (70-99)
[2025-05-06] MEDS: LIPITOR 80 MG PO (16:52)
[2025-05-06 19:29] VITALS: BP 98/55
[2025-05-06 21:31] LABS: Glucose - Point of Care 115 mg/dl (70-99)
[2025-05-06] MEDS: COREG 6.25 MG PO (21:51)
[2025-05-06] MEDS: XALATAN OPHTHALMIC SOLUTION 1 DROP OPHTH (21:52)
[2025-05-06 23:20] VITALS: BP 103/61
[2025-05-07 03:41] VITALS: BP 101/63
[2025-05-07 06:00] VITALS: BMI 32.8
--- NOTE | 2025-05-07 06:44 | PTCARENOTE ---
Pt had a 17 best of Vtach- pt sleeping. VSS. Contacted [employer]- Mag added to morning labs
[2025-05-07 06:58] LABS: % Basophils 0.9 % (0-2); % Eosinophils 4.5 % (0-6); % Immature Granulocytes 0.5 % (0-0.5); % Lymphocytes 24.7 % (20.5-51.1); % Monocytes 10.2 % (1.7-9.3); % Neutrophils 59.2 % (42.2-75.2); Absolute Basophils 0.1 10^3/uL (0-0.2); Absolute Eosinophils 0.3 10^3/uL (0-0.7); Absolute Lymphocytes 1.4 10^3/uL (1.2-3.4); Absolute Monocytes 0.6 10^3/uL (0.1-0.6); Absolute Neutrophils 3.4 10^3/uL (1.4-6.5); Hematocrit 33.6 % (39.0-52.0); Hemoglobin 10.6 g/dL (13.0-18.0); Mean Corp Hgb Conc. 31.5 g/dL (33.0-37.0); Mean Corpuscular Hgb 26.8 pg (27.0-31.0); Mean Corpuscular Volume 85.1 fL (80.0-94.0); Mean Platelet Volume 10.5 fL (7.4-10.4); Nucleated Red Blood Cells % 0 % (-); Platelet Count 190 10^3/uL (130-400); Red Blood Cell Count 3.95 10^6/uL (4.70-6.10); Red Cell Dist. Width 17.2 % (11.5-14.5); White Blood Cell Count 5.8 10^3/uL (4.8-10.8)
[2025-05-07 07:08] VITALS: BP 104/69
[2025-05-07 07:32] LABS: Blood Urea Nitrogen 41 mg/dl (9-20); Calcium 8.2 mg/dl (8.4-10.2); Chloride 91 mmol/L (98-107); Estimated Creatinine Clearance 72 ml/min; Glucose 96 mg/dl (70-99); Magnesium 2.3 mg/dl (1.6-2.3); Potassium 3.7 mmol/L (3.5-5.1); Sodium 140 mmol/L (135-145); eGFR > 60.00
[2025-05-07 07:39] LABS: Glucose - Point of Care 98 mg/dl (70-99)
[2025-05-07] MEDS: NOVOLOG FLEXPEN-LOW RESISTANCE SC ×3 (09:13→16:34)
[2025-05-07] MEDS: ALDACTONE 25 MG PO (09:14)
[2025-05-07] MEDS: MUCINEX 600 MG PO ×2 (09:14→19:56)
[2025-05-07] MEDS: FLOMAX 0.4 MG PO (09:14)
[2025-05-07] MEDS: COREG 6.25 MG PO ×2 (09:14→20:03)
[2025-05-07] MEDS: PROTONIX 40 MG PO (09:15)
[2025-05-07] MEDS: LASIX 80 MG IV ×2 (09:15→15:32)
[2025-05-07] MEDS: PROSCAR 5 MG PO (09:15)
[2025-05-07] MEDS: KCL 20 MEQ PO ×2 (09:15→15:32)
[2025-05-07] MEDS: NEURONTIN 600 MG PO ×3 (09:15→21:36)
[2025-05-07] MEDS: ALPHAGAN 0.2% EYE DROPS 1 DROP OPHTH (09:17)
[2025-05-07] MEDS: DESENEX/MITRAZOL/ZEASORB 1 APPLIC TOPICAL ×2 (09:17→19:57)
[2025-05-07 09:18] LABS: Carbon Dioxide 39 mmol/L (22-30)
[2025-05-07] MEDS: HYDROCORTISONE 1% CREAM 1 APPLIC TOPICAL ×2 (09:18→19:58)
[2025-05-07] MEDS: PLAVIX 75 MG PO (09:26)
--- NOTE | 2025-05-07 10:04 | W.PN.CARDCBS ---
Today's Communication / Plan
-
N.p.o. after midnight
Xarelto on hold
Continue Plavix given recent vascularization
Please change to p.o. Lasix on May 08
His kidney function has remained stable despite 6 L of diuresis over the weekend and 20 kg of weight loss through hospitalization
He reiterates his plan to follow-up long-term at [place]. I discussed with him that his tactics of being a free agent to different hospitals and getting his nighttime and we can care at different hospitals is not helpful to his care and that he
needs to '' choose a medical home. He tells me he wants that to be [place] and hence we will complete the ICD implantation here an outpatient follow-up will be arranged.
Impression / Plan
-
PCP: Dr. Efrain Ma at rehab and sees a PCP as an outpatient
Card: Dr. Charles Sim at [facility] [place]
Impression:
Admitted with acute hypoxia and CHF 04/29/2025
Recent hospitalizations at [facility] for sepsis,scrotal cellulitis, and heart failure-GDMT stopped due to hypotension
Acute on chronic HFrEF
ICM EF 15-20% by echo at [facility] 01/16/25, down to 5-10% by echo at [facility] 04/17/25
prescribed Life Vest at [facility] after 01/2025 admission with plan to recheck echo after 90 days of medical therapy (even though revascularized 01/26/25) then readmitted to [facility] 04/2025 and EF 5-10%, but no ICD placed due to sepsis
CAD
s/p PCI distal RCA at [facility] 01/26/2025
h/o CVA
Sinus rhythm throughout admission, possible paroxysmal atrial fibrillation
Hyperlipidemia
Obstructive sleep apnea
Melanoma, was following at [facility], therapy interrupted by repeated admissions
DVT- on Xarelto, previously had IVC filter
Previous cardiovascular studies from [facility]:
Left heart cath 01/20/2025: 80% trifurcating distal RCA, 80% D2. Right heart cath not performed. Groin access not attempted due to ongoing groin discomfort/scrotal edema/hydrocele/IVC filter
Left heart cath 01/26/2025 successful PCI with RONN and PTCA to 99% distal RCA
Echo 01/16/2025: LVEF 15 to 20%
Echo 04/17/2025 LVEF 5 to 10%
Echo 05/01/2025: LVEF 25%, mild cLVH (1.2 cm), enlarged RV size and reduced RV systolic function, mild to moderate MR, mild TR, PAP 50 mmHg
Plan:
-Telemetry personally reviewed: Normal sinus rhythm, PVCs, bigeminy, couplets, runs of NSVT 22 beats, 11 beats, 17 beats
- keep K>4, Mag >2. Mag 2.2 05/06.
- Increase Coreg to 6.25 mg twice daily patient is tolerating
- Will plan ICD implant on Thursday, May 08. Please place left forearm IV
- Wean oxygen to off today
-EF 5-10% by echo at [facility] earlier this month, but looks closer to 25% by echo this admission.
-restarted previously stopped Entresto 24/26 mg BID. Started on 05/02/2025. Has missed 2 doses due to low BP (SBP <110). Per outpt records, previously on Entresto 24/26 mg bid, 1.5 tabs BID.
-tubigrip compression stockings
-Not a candidate for SGLT 2 inhibitors due to UTI/scrotal cellulitis
-pt intends to switch cardiac care to [place] so will need follow-up through [facility]. His initial consultation was with Dr. Wilkes and he will be the implanting physician tomorrow. I will defer to him in terms of timing and follow-up. Will hold
Xarelto tonight and continue the patient's Plavix as he was recently revascularized January 2025.
-Troponin serially normal.
-Patient also reports a h/o melanoma on his back that was being followed at [facility], patient says that he had been referred for what sounds like Moh's surgery, but plan interrupted by repeated admissions as noted above. He will need an outpatient plan
to have this removed as that could affect his long-term outcome
-he would like to f/u for this condition locally as he does not think he will be able to get back to [facility]
-pt eventually to return to SNF for continued rehab
05/02/2025 -Received records from [facility] -Reviewed cardiology consult note and discharge summary and was able to obtain more past medical history which includes distal RCA stent 01/26/2025, heart failure reduced EF
of 15 to 20%, DVT status post IVC filter in 2014, hypertension, obstructive sleep apnea. Admitted 04/16/2025 - 04/25/2025 for concern of cellulitis of scrotum and UTI. Was septic with blood pressures in the 70s/50, required initiation of Levophed and
was started on antibiotics. Cardiology was consulted regarding patient's GDMT and GDMT was stopped due to hypotension. He had previously been on Entresto, spironolactone, Farxiga, carvedilol. Because of hypotension he was only continued on
metoprolol 25 mg daily and Bumex. He was continued on Plavix and Xarelto. Plan to consider single-chamber ICD for primary prevention of sudden cardiac once infection cleared. Had narrow QRS so not thought to be a PIECE WORK CHECKER candidate.
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
Subjective
Date of Service: May 07, 2025
Diuresed about 6 L over the weekend
Feeling better from a respiratory perspective today
Objective
Labs:
05/07/25 06:11
05/07/25 06:11
Labs
Hgb 10.6 g/dL (13.0-18.0) L 05/07/25 06:11
Hct 33.6 % (39.0-52.0) L 05/07/25 06:11
Plt Count 190 10^3/uL (130-400) 05/07/25 06:11
Sodium 140 mmol/L (135-145) 05/07/25 06:11
Potassium 3.7 mmol/L (3.5-5.1) 05/07/25 06:11
BUN 41 mg/dl (9-20) H 05/07/25 06:11
Creatinine 1.0 mg/dL (0.7-1.3) 05/07/25 06:11
Glucose 96 mg/dl (70-99) 05/07/25 06:11
Vital Signs and I&O:
Vital Signs
Temp Pulse Resp BP Pulse Ox
98.5 F 74 20 104/69 93
05/07/25 07:08 05/07/25 07:08 05/07/25 07:08 05/07/25 07:08 05/07/25 09:38
Vital Signs
Temp Pulse Resp BP Pulse Ox
98.5 F 74 20 104/69 93
05/07/25 07:08 05/07/25 07:08 05/07/25 07:08 05/07/25 07:08 05/07/25 09:38
Intake & Output
05/05/25 05/06/25 05/07/25 05/08/25
06:59 06:59 06:59 06:59
Intake Total 2039 / 0 1040 / 1040 1820 / 1820
Output Total 4950 / 4950 4215 / 4215 3295 / 3295
Balance -2910 / -2910 -3175 / -3175 -1475 / -1475
Physical Exam
Physical Exam
����Physical Exam
���������������������General:��no apparent distress, not acutely ill
���������������������������Neck:��supple. no meningeal signs. normal psoterior pharynx
������������������������
���������������������������Heart:��s1/s2 regular rate and rhythm, no murmur. equal radial pulses.
��������������������������Lungs: ��no acute respiratory distress. clear bilaterally
����������������������Abdomen:�normal bowel sounds. not tender. no CVAT
��������������������������Neuro:��alert and oriented. no focal neurological deficits
������������������������������Skin: ��no rash
�����������������������Psychiatric:�well kept. interactive and cooperative
�����������������������Extremities:��no edema. no calf tenderness. negative homans. good distal pulses
��
�
[2025-05-07] MEDS: XARELTO PO (10:22)
[2025-05-07 11:32] VITALS: BP 93/57
[2025-05-07] MEDS: ENTRESTO 24 MG/26 MG PO ×2 (11:43→19:39)
--- NOTE | 2025-05-07 12:02 | W.PN.HOSP.TC ---
Today's Communication/Plan
-
ICD tomm
npo pmn
xarelto on hold
Assessment / Plan
Assessment / Plan
Gen-AAOx3, NAD, obese
HEENT-NC, AT, anicteric, clear oral mm
Neck-supple
CV-reg, no M, +S1/S2
Lungs-clear bilaterally,
Abd-soft, NT, obese
Ext-bilateral lower extremity edema from thighs to feet-slowly improving
Musculoskeletal-no cyanosis, clubbing
Skin-warm and dry
Neuro-grossly non-focal
Psych-calm, cooperative, talkative
74-year-old male past medical history of BPH, HFrEF and HFpEF CAD status post RCA stent, and hypertension, hydrocele, obesity, colon cancer, skin cancer, diabetes, glaucoma, DVT status post IVC filter in 2014, type SAMI is presented with worsening of
lower extremity edema and abdominal distention.
#Acute hypoxic respiratory failure -likely multifactorial etiology including acute pulmonary edema from heart failure exacerbation, pleural effusions, acute bronchitis with active wheezing, etc.
Weaned off oxygen to room air.
Chest x-ray demonstrates moderate cardiomegaly, moderate pulmonary edema, moderate size right and small left pleural effusions.
#Acute on chronic systolic and diastolic heart failure exacerbation
Clinically improving. BNP 21,800.
Continue IV 80 mg Lasix BID. s/p zaroxlyn
Started patient on KCl with diuretics
Seems overtly volume overloaded. Losing weight
Per outpatient [facility] records patient with EF of 15 to 20%. Patient was unable to tolerate goal-directed medical therapy due to hypotension in the past.
Repeat echo with EF of 25%. Stage II diastolic dysfunction.
Was on Bumex 2 mg twice daily prior to admission.
Seems to respond pretty well with Zaroxolyn and lost 20kg approximately
Entresto and Aldactone added. Monitor blood pressure and creatinine closely
Metoprolol transition to carvedilol
Cardiology planning for ICD tentatively on Thursday
Patient refused compression therapy lower extremity
#NSVT with history of reduced ejection fraction
Continue with KCl.
Aldactone added
Toprol transition to carvedilol. Monitor electrolytes closely.
Cardiology planning for ICD tentatively tomm-pt agrees. NPO PMN.
Cardiology following
#Rash on the back
?allergic versus pressure rash
trial of hydrocortisone cream
Significant improvement
#Acute bronchitis
wheezing improved.
s/p Short course of steroids. Continue inhalers, Mucinex, incentive spirometer.
#CAD with RCA stent on 01/26/25
Continue with Plavix, statin and beta-inna
Currently on Xarelto, and adjusted to 15 mg per cardiology recommendation and [place] trial data-Xarelto on hold for ICD tomm
#Essential hypertension
stable.
#DM2 without hyperglycemia -does not appear to be on medications for diabetes.
Continue low resistance insulin scale. Hemoglobin A1c 6.1%.
History of stroke -details unknown.
SAMI - intolerant of CPAP.
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 Currently on Xarelto, and adjusted to 15 mg per cardiology recommendation and [place] trial data
Neurogenic bladder -chronic Hester catheter. Unclear when it was last changed.
Hydrocele -was due for treatment by his urologist but postponed due to respiratory status.
BPH -tamsulosin.
Chronic anemia -hemoglobin 11.5. Baseline unknown. Monitor for now.
Skin cancer status post surgery at [facility]
History of colon cancer
Morbid obesity due to excess calories
History of epistaxis
History of thyroid nodule
Buttock stage II pressure injury POA
Offloading
Wound care
Full code
PT/OT -SNF on discharge.
Anticipated Discharge: > 48 hours
Subjective/Interval History
-
Date of Service: May 07, 2025
off oxygen
Objective Data
-
Labs:
Laboratory Results
05/07/25
06:11
WBC 5.8
Hgb 10.6 L
Hct 33.6 L
Plt Count 190
Sodium 140
Potassium 3.7
Chloride 91 L
Carbon Dioxide 39 H
BUN 41 H
Creatinine 1.0
Glucose 96
Calcium 8.2 L
Vital Signs:
Vital Signs
Temp Pulse Resp BP Pulse Ox
98.6 F 88 18 93/57 97
05/07/25 11:32 05/07/25 11:32 05/07/25 11:32 05/07/25 11:32 05/07/25 11:32
I&O
05/06/25 05/07/25 05/08/25
06:59 06:59 06:59
Intake Total 1040 / 1040 1820 / 1820
Output Total 4215 / 4215 3295 / 3295
Balance -3175 / -3175 -1475 / -1475
[2025-05-07 12:18] LABS: Glucose - Point of Care 107 mg/dl (70-99)
[2025-05-07] MEDS: LAC HYDRIN, AM LACTIN LOTION 1 APPLIC TOPICAL (13:12)
[2025-05-07] MEDS: LIPITOR 80 MG PO (15:32)
[2025-05-07 15:52] VITALS: BP 94/55
[2025-05-07 16:26] LABS: Glucose - Point of Care 118 mg/dl (70-99)
[2025-05-07 19:45] VITALS: BP 107/71
[2025-05-07] MEDS: TYLENOL 650 MG PO (19:55)
[2025-05-07] MEDS: XALATAN OPHTHALMIC SOLUTION 1 DROP OPHTH (20:14)
[2025-05-07 21:16] LABS: Glucose - Point of Care 144 mg/dl (70-99)
[2025-05-07 23:33] VITALS: BP 93/60
[2025-05-08] VITALS (17 sets, daily range): BP systolic 91–136; BP diastolic 51–81; BMI 32.6
[2025-05-08 05:58] LABS: Glucose - Point of Care 99 mg/dl (70-99)
--- NOTE | 2025-05-08 06:03 | PTCARENOTE ---
Pt with 13 beat run vtach, asymptomatic. 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
[2025-05-08 07:03] LABS: INR 1.17; PT 15.2 Sec (11.4-14.6)
[2025-05-08 07:07] LABS: % Basophils 1.3 % (0-2); % Eosinophils 4.6 % (0-6); % Monocytes 9.6 % (1.7-9.3); % Neutrophils 57.5 % (42.2-75.2); Absolute Basophils 0.1 10^3/uL (0-0.2); Absolute Eosinophils 0.3 10^3/uL (0-0.7); Absolute Immature Granulocytes 0.1 10^3/uL (0-0.05); Absolute Lymphocytes 1.6 10^3/uL (1.2-3.4); Absolute Monocytes 0.6 10^3/uL (0.1-0.6); Absolute Neutrophils 3.5 10^3/uL (1.4-6.5); Hematocrit 34.3 % (39.0-52.0); Hemoglobin 10.9 g/dL (13.0-18.0); Mean Corp Hgb Conc. 31.8 g/dL (33.0-37.0); Mean Corpuscular Hgb 27.1 pg (27.0-31.0); Mean Corpuscular Volume 85.3 fL (80.0-94.0); Mean Platelet Volume 10.9 fL (7.4-10.4); Nucleated Red Blood Cells % 0 % (-); Platelet Count 180 10^3/uL (130-400); Red Blood Cell Count 4.02 10^6/uL (4.70-6.10); Red Cell Dist. Width 17.3 % (11.5-14.5)
[2025-05-08 07:27] LABS: Blood Urea Nitrogen 40 mg/dl (9-20); Calcium 8.1 mg/dl (8.4-10.2); Chloride 91 mmol/L (98-107); Estimated Creatinine Clearance 72 ml/min; Glucose 92 mg/dl (70-99); Magnesium 2.2 mg/dl (1.6-2.3); Potassium 3.5 mmol/L (3.5-5.1); Sodium 139 mmol/L (135-145); eGFR > 60.00
[2025-05-08] MEDS: NEURONTIN 600 MG PO ×3 (08:29→22:58)
[2025-05-08] MEDS: HYDROCORTISONE 1% CREAM 1 APPLIC TOPICAL ×2 (08:29→20:46)
[2025-05-08] MEDS: MUCINEX 600 MG PO ×2 (08:29→20:21)
[2025-05-08] MEDS: ALDACTONE 25 MG PO (08:30)
[2025-05-08] MEDS: ENTRESTO 24 MG/26 MG 1 TAB PO (08:30)
[2025-05-08] MEDS: COREG 6.25 MG PO (08:30)
[2025-05-08] MEDS: LASIX 80 MG IV ×2 (08:31→17:30)
[2025-05-08] MEDS: KCL 20 MEQ PO ×2 (08:31→17:30)
[2025-05-08] MEDS: PROSCAR 5 MG PO (08:31)
[2025-05-08] MEDS: PROTONIX 40 MG PO (08:31)
[2025-05-08] MEDS: FLOMAX 0.4 MG PO (08:31)
[2025-05-08] MEDS: DESENEX/MITRAZOL/ZEASORB 1 APPLIC TOPICAL ×2 (08:32→20:21)
[2025-05-08] MEDS: LAC HYDRIN, AM LACTIN LOTION 1 APPLIC TOPICAL (08:32)
[2025-05-08] MEDS: ALPHAGAN 0.2% EYE DROPS 1 DROP OPHTH (08:32)
[2025-05-08] MEDS: PLAVIX 75 MG PO (08:40)
[2025-05-08 09:13] LABS: Carbon Dioxide 39 mmol/L (22-30)
--- NOTE | 2025-05-08 09:14 | W.PN.HOSP.TC ---
Today's Communication/Plan
-
repeat chest x ray
sputum culture
Assessment / Plan
Assessment / Plan
Physical exam:
Gen-AAOx3, NAD, obese
HEENT-NC, AT, anicteric, clear oral mm
Neck-supple
CV-reg, no M, +S1/S2
Lungs-clear bilaterally,
Abd-soft, NT, obese
Ext- less edema
Musculoskeletal-no cyanosis, clubbing
Skin-warm and dry
Neuro-grossly non-focal
Psych-calm, cooperative, talkative
74-year-old male past medical history of BPH, HFrEF and HFpEF CAD status post RCA stent, and hypertension, hydrocele, obesity, colon cancer, skin cancer, diabetes, glaucoma, DVT status post IVC filter in 2015, type SAMI is presented with worsening of
lower extremity edema and abdominal distention.
#Acute hypoxic respiratory failure -likely multifactorial etiology including acute pulmonary edema from heart failure exacerbation, pleural effusions, acute bronchitis with active wheezing, etc.
Weaned off oxygen to room air.
Chest x-ray demonstrates moderate cardiomegaly, moderate pulmonary edema, moderate size right and small left pleural effusions.
Repeat chest x ray
Sputum culture
c/w Lasix & Aldactone
#Acute on chronic systolic and diastolic heart failure exacerbation
Clinically improving. BNP 21,800.
Continue IV 80 mg Lasix BID, aldactone . s/p Zaroxolyn
Started patient on KCl with diuretics
Seems overtly volume overloaded. Losing weight
Per outpatient [facility] records patient with EF of 15 to 20%. Patient was unable to tolerate goal-directed medical therapy due to hypotension in the past.
Repeat echo with EF of 25%. Stage II diastolic dysfunction.
Was on Bumex 2 mg twice daily prior to admission.
Seems to respond pretty well with Zaroxolyn and lost 20kg approximately
Entresto and Aldactone added. Monitor blood pressure and creatinine closely
Metoprolol transition to carvedilol
Cardiology planning for ICD tentatively on Thursday
Patient refused compression therapy lower extremity
#NSVT with history of reduced ejection fraction
Continue with KCl.
Aldactone added
Toprol transition to carvedilol. Monitor electrolytes closely.
Cardiology planning for ICD tentatively tomm-pt agrees. NPO PMN.
Cardiology following
#Rash on the back
?allergic versus pressure rash
trial of hydrocortisone cream
Significant improvement
#Acute bronchitis
wheezing improved.
s/p Short course of steroids. Continue inhalers, Mucinex, incentive spirometer.
#CAD with RCA stent on 01/26/25
Continue with Plavix, statin and beta-inna
Currently on Xarelto, and adjusted to 15 mg per cardiology recommendation and [place] trial data-Xarelto on hold for ICD tomm
#Essential hypertension
stable.
#DM2 without hyperglycemia -does not appear to be on medications for diabetes.
Continue low resistance insulin scale. Hemoglobin A1c 6.1%.
History of stroke -details unknown.
SAMI - intolerant of CPAP.
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 Currently on Xarelto, and adjusted to 15 mg per cardiology recommendation and [place] trial data
Neurogenic bladder -chronic Hester catheter. Unclear when it was last changed.
Hydrocele -was due for treatment by his urologist but postponed due to respiratory status.
BPH -tamsulosin.
Chronic anemia -hemoglobin 11.5. Baseline unknown. Monitor for now.
Skin cancer status post surgery at [facility]
History of colon cancer
Morbid obesity due to excess calories
History of epistaxis
History of thyroid nodule
Buttock stage II pressure injury POA
Offloading
Wound care
Full code
PT/OT -SNF on discharge.
Total time spent to see the patient, examine the patient, review data and lab result, discuss treatment plan with patient, nursing staff around 55 minutes
Anticipated Discharge: 24 - 48 hours
Subjective/Interval History
-
Date of Service: May 08, 2025
No chest pain
No sob
No fever
Objective Data
-
Labs:
Laboratory Results
05/08/25
06:30
WBC 6.0
Hgb 10.9 L
Hct 34.3 L
Plt Count 180
PT 15.2 H
INR 1.17
Sodium 139
Potassium 3.5
Chloride 91 L
Carbon Dioxide 39 H
BUN 40 H
Creatinine 1.0
Glucose 92
Calcium 8.1 L
Vital Signs:
Vital Signs
Temp Pulse Resp BP Pulse Ox
97.2 F 82 18 136/58 94
05/08/25 07:00 05/08/25 08:31 05/08/25 07:00 05/08/25 08:31 05/08/25 07:00
I&O
05/07/25 05/08/25 05/09/25
06:59 06:59 06:59
Intake Total 1820 / 1820 600 / 600
Output Total 3295 / 3295 3000 / 3000
Balance -1475 / -1475 -2400 / -2400
--- NOTE | 2025-05-08 11:01 | PTCARENOTE ---
Pt [employer] would like to be contacted about return of equipment after successful placement of ICD. Phone number [phone] ext. [phone] to reach returns.
--- NOTE | 2025-05-08 11:04 | W.PN.UPDATE ---
Update Note
Progress Note Update
Briefly, patient is a pleasant 74-year-old male with a past medical history significant for ischemic cardiomyopathy with LVEF noted to be 15 to 20% January 2025 without improvement in LVEF 3 months later on goal-directed medical therapy with EF
reported at 5-10% with [facility] 04/2025; repeat echocardiogram during hospitalization at [facility] 05/01/2025 EF 25%, CAD status post PCI January 2025, history of CVA, hyperlipidemia, sleep apnea, DVT on Xarelto with prior IVC filter,
reported A-fib (no recurrence during hospitalization), recurrent infections pulmonary and UTI who initially presented to the hospital due to acute on chronic heart failure. Patient previously had been prescribed LifeVest with planned follow-up as
outpatient for implant of ICD. Patient unfortunately was unable to make follow-up appointment for discussion of ICD due to recurrent heart failure and cellulitis. Patient now stable with significant reduction in fluid volume. Discussion with
patient regarding primary prevention ICD occurred during hospitalization here and at [facility]. In the setting of patient's persistently reduced LVEF (less than or equal to 35% despite goal-directed medical therapy and revascularization
greater than 90 days with no indication for pacing and NYHA III heart failure with narrow QRS) patient to benefit from implant of single-chamber primary prevention ICD. Regarding ICD, we discussed ICD indications for primary prevention and
secondary prevention patients including 5 year sudden risk. We also discussed implant procedure in detail including an approximate 1:1000 risk of TN/stroke/ and a 1% risk of pneumothorax/tamponade/infection/bleeding. We discussed the
less than 1% risk of wires bending, breaking, or tearing through the lifetime of the device requiring surgery or procedure to fix. We discussed the less than 1% risk of device/lead advisory or recall and requirement for monitoring for surveillance.
We also discussed post procedure implant restrictions including positions to avoid with implant arm for first six weeks after implant as well as driving restrictions. We discussed post implant possibility of inappropriate shocks from device and
programming strategies to minimize this risk. Patient verbalized understanding and agreed with this plan. This discussion had also been had by my partner Dr. Mumtaz Link this past weekend regarding his candidacy for ICD and patient verbalized
understanding and agreed with ICD implantation here for follow-up of [facility]. Patient remains NPO. Consent signed.
[2025-05-08 11:59] LABS: Glucose - Point of Care 108 mg/dl (70-99)
--- NOTE | 2025-05-08 14:36 | W.ICD.CONTRA ---
Post ICD/PAGE MAKEUP SYSTEM OPERATOR-D
-
History of DE?: Yes
LV Function
Left ventricular function study result?: Ejection Fraction </= 35%
ACEI/ARB/ARNI
Patient already on ACEI/ARB/ARNI: Yes
Beta-Lane
Patient already on Beta Lane: Yes
--- NOTE | 2025-05-08 14:37 | PTCARENOTE ---
Pt was arrived to labor relations or personnel negotiator via stretcher on monitor, in RA at 1423. Vs: HR 65, BP 104/64, sats 89-92, temp 97.8 temporal. Hester cath patent with 700 mls clear yellow urine . Pt's chest was shaved, body wiped to CHG wipes. IV patent when flushed.
No redness , swelling or tenderness. Scrotum very edematous and tender. he was seen by Dr Mack at 1440. Antibiotics available at the bedside. Report to [place] and transfer to lab at 1450
--- NOTE | 2025-05-08 14:43 | ITS.CL.ICD ---
Rac Specialist - ICD
Implantable Cardioverter Defibrillator
Procedure Report:
Primary Electronic Assembly: Dr Charles Sim
Procedure Date: 05/08/2025
Name of procedure:
1. Placement of a single-chamber ICD
2. Subclavian venography
History:
1. Patient is a pleasant 74-year-old male with a past medical history significant for prior CVA, dyslipidemia, sleep apnea, melanoma, DVT on Xarelto with prior IVC filter, paroxysmal fib on Xarelto, ischemic cardiomyopathy with LVEF 15-20% January
2024 without improvement following revascularization and 3 months of goal-directed medical therapy with LVEF remaining less than or equal to 35%, NYHA III heart failure symptoms, QRS duration less than 120 ms.
2. Please refer to H&P for complete history.
Indication:
LVEF less than or equal to 35% despite revascularization and goal-directed medical therapy greater than 90 days
NYHA III heart failure
Prior LifeVest
Methods:
After informed consent was obtained, the patient was brought to the EP laboratory in a postabsorptive, nonsedated state. Peripheral IV access was established. Prophylactic antibiotics were administered prior to incision. Continuous ECG, blood
pressure, and pulse oximetry were initiated. Cardioversion patch electrodes were placed on the patient's chest and back. A grounding patch was applied to the skin. Sedation was administered by anesthesia services.
In order to define the extrathoracic portion of the subclavian vein and exclude significant venous obstruction or anomalous anatomy, subclavian venography was performed prior to the procedure. Using the patient's left peripheral IV, contrast was
injected and images were recorded. The left subclavian vein and SVC were found to be widely patent.
The left chest was prepared and draped in a sterile fashion. A time-out was performed. Local anesthesia was injected in the subcutaneous tissue in the infraclavicular area. An incision was made medial to the deltopectoral groove. The subcutaneous
tissue was dissected the level of the prepectoral fascia. A subcutaneous pocket was created. Under fluoroscopic guidance and with the assistance of the images from the venogram, a single venipuncture was made using micropuncture and modified
Seldinger technique. This was performed in the extrathoracic portion of the subclavian vein. Guidewire was passed and single peel-away sheaths was placed and used to advance lead into the circulation.
Using fluoroscopic guidance, the lead was positioned. The RV lead was advanced to the RV/outflow tract. Ventricular ectopy was recorded. Images were taken in ZAPATA and PORTUGUESE views to ensure appropriate lead placement. The lead tip was subsequently
positioned on the apical septum. Adequate sensing and pacing parameters were found, and no diaphragmatic stimulation was seen with high-output pacing. The sheath was split and the lead was secured to the fascia with Ethibond ties.
The pocket was flushed with antibiotic solution and hemostasis was assured. The generator was connected to the leads and placed inside the pocket. The generator was sutured to the pocket with Ethibond tie. Antibiotic envelope was used. Floseal was
applied. The wound was closed with 3 running layers of absorbable suture, and steri-strips were applied. Dressing applied over steri-strips in standard fashion.
Following the procedure, the patient was taken to the recovery area in stable condition. A chest x-ray to be obtained as routine.
Lead parameters and device programming:
- RV Lead (Medtronic, Model 6935 M62, # [id number]): Sensing 6.5 mV, Pacing threshold 0.5 V at 0.4 ms, Imp 532 ohm, HBB impedance 62 ohm
- Device: Medtronic, Model UNLL8G4 ICD (# [id number]), programmed VVI 40
- Zones: Monitor 150�167; VT 167-188 ATP; VF greater than 188 ATP plus shock
Conclusions:
1. Successful placement of a single-chamber ICD
2. Subclavian venography
Recommendations:
- Return to floor
- CXR today and [facility]
- IV antibiotics while the patient is admitted.
- OK to resume home medications as indicated
- Pressure dressing to be removed in AM, aquacell to remain until wound check
- Follow-up for incision check in the office in 7-10 days post-discharge
� Okay to resume anticoagulation (Xarelto) on 05/10/2025 if site and patient stable
Filiberto Wilkes DO, FAC, [facility]
Clinical Cardiac Assistant Community Director
cc: Dr Charles Sim
--- NOTE | 2025-05-08 17:23 | CM ---
Patient continues to require acute care. Updated notes sent to [place] for review.
Plan: Case management will continue to follow and assist with discharge planning. [facility] when stable.
[2025-05-08] MEDS: LIPITOR 80 MG PO (17:30)
[2025-05-08 17:36] LABS: Glucose - Point of Care 102 mg/dl (70-99)
--- NOTE | 2025-05-08 18:12 | PTCARENOTE ---
Patient received from laborer wood preserving plant. AO x3. Left CW pressure dressing CDI with left arm immobilizer. NSR, bigeminy, +1 edema. POX 89 on room air, placed on 2 liters NC. Indwelling chronic Hester cloudy urine, Hester care completed, scrotal edema with a
foam dressing on his scrotum. Stage II on sacrum cover with foam dressing, rash in groins and abdominal folds, Desenex powder ordered. VSS, BP 122/57, HR 62, POX 99% on 2 liters. Oriented to room and call aguillon
[2025-05-08] MEDS: ENTRESTO 24 MG/26 MG PO (20:20)
[2025-05-08 22:37] LABS: Glucose - Point of Care 137 mg/dl (70-99)
[2025-05-08] MEDS: XALATAN OPHTHALMIC SOLUTION 1 DROP OPHTH (22:58)
[2025-05-08] MEDS: COREG PO (23:26)
[2025-05-08] MEDS: ANCEF 5 IV (23:41)
[2025-05-09] VITALS (58 sets, daily range): BP systolic 77–157; BP diastolic 47–140; PULSE 63; O2SAT 98; BMI 32.4
[2025-05-09] MEDS: VENTOLIN NEBULES 2.5 MG INH (00:15)
--- NOTE | 2025-05-09 00:50 | PTCARENOTE ---
Rec'd pt at change of shift. Pt AAO*3, VSS, and SR on TELE monitor with occasional Bijem/pvc's. Pt with L upper extremity immobilized. Pt taken to ER for chest Xray on stretcher with staff escort. 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
roxana notified and rec'd instruction to hold Coreg 12.5. Pt denies any pain or discomfort with rest. Pt resting with call aguillon in reach, see MAR and flowchart for full pt care and assessment. Plan of care ongoing.
--- NOTE | 2025-05-09 00:56 | PTCARENOTE ---
Pt noted to have audible wheezing on assessment. Respiratory therapist notified, pt rec'd nebulizer as ordered. Pt reported relief after treatment. pt placed back on 2L via nasal canula after treatment. Plan of care ongoing.
[2025-05-09] MEDS: TYLENOL 650 MG PO (03:26)
[2025-05-09 03:52] LABS: Hematocrit 36.2 % (39.0-52.0); Hemoglobin 11.4 g/dL (13.0-18.0); Mean Corp Hgb Conc. 31.5 g/dL (33.0-37.0); Mean Corpuscular Hgb 26.8 pg (27.0-31.0); Mean Platelet Volume 10.7 fL (7.4-10.4); Platelet Count 187 10^3/uL (130-400); Red Blood Cell Count 4.26 10^6/uL (4.70-6.10); Red Cell Dist. Width 17.5 % (11.5-14.5); White Blood Cell Count 6.5 10^3/uL (4.8-10.8)
[2025-05-09 04:12] LABS: Blood Urea Nitrogen 43 mg/dl (9-20); Calcium 8.5 mg/dl (8.4-10.2); Chloride 94 mmol/L (98-107); Estimated Creatinine Clearance 72 ml/min; Glucose 142 mg/dl (70-99); Potassium 3.8 mmol/L (3.5-5.1); Sodium 140 mmol/L (135-145); eGFR > 60.00
[2025-05-09 04:26] LABS: Carbon Dioxide 36 mmol/L (22-30)
[2025-05-09] MEDS: ANCEF 5 IV (05:58)
[2025-05-09 07:25] LABS: Glucose - Point of Care 96 mg/dl (70-99)
[2025-05-09] MEDS: NOVOLOG FLEXPEN-LOW RESISTANCE SC ×3 (07:34→17:23)
[2025-05-09] MEDS: MUCINEX 600 MG PO ×2 (09:14→20:29)
[2025-05-09] MEDS: NEURONTIN 600 MG PO ×2 (09:14→22:38)
[2025-05-09] MEDS: PROTONIX 40 MG PO (09:14)
[2025-05-09] MEDS: PLAVIX 75 MG PO (09:14)
[2025-05-09] MEDS: COREG 6.25 MG PO ×2 (09:14→16:37)
[2025-05-09] MEDS: FLOMAX 0.4 MG PO (09:15)
[2025-05-09] MEDS: KCL 20 MEQ PO ×2 (09:15→16:12)
[2025-05-09] MEDS: ALDACTONE 25 MG PO (09:15)
[2025-05-09] MEDS: LASIX 80 MG IV (09:15)
[2025-05-09] MEDS: PROSCAR 5 MG PO (09:15)
[2025-05-09] MEDS: ALPHAGAN 0.2% EYE DROPS 1 DROP OPHTH (09:16)
[2025-05-09] MEDS: DESENEX/MITRAZOL/ZEASORB 1 APPLIC TOPICAL ×2 (09:16→20:29)
[2025-05-09] MEDS: HYDROCORTISONE 1% CREAM 1 APPLIC TOPICAL ×2 (09:17→20:28)
[2025-05-09] MEDS: ENTRESTO 24 MG/26 MG 1 TAB PO (09:25)
[2025-05-09] MEDS: LAC HYDRIN, AM LACTIN LOTION 1 APPLIC TOPICAL (09:26)
--- NOTE | 2025-05-09 10:15 | PTCARENOTE ---
Assumed care. Patient AO x3, can be forgetful. Oxygen 2 liter NC, lungs CTA, denies SOB, POX 100%. SR some bigeminy, trace ankle edema, tuba automotive diagnostic technician stockings applied, left CW pressure dressing CDI with immobilizer in place. Sacral foam replaced, stage
II sacral ulcer, skin red and non-blanchable. Scrotal edema +3, elevated on a towel. MASD around scrotum, antifungal powder applied. Hester cloudy yellow with some white sediment, Hester care provided. Assisted to chair today with rolling walker. Call
aguillon in reach
--- NOTE | 2025-05-09 11:00 | CHAP ---
Fr. Michael Salvador of [facility] in [place] heard Wild's confession, and gave him Holy Communion and the Sacrament of the Sick.
--- NOTE | 2025-05-09 11:31 | CM ---
Pricing on Entresto through the patient's [employer] [facility], ID# [id number], is $0 copay.
--- NOTE | 2025-05-09 11:32 | CM ---
Chart reviewed. Patient was recently discharged from [facility]. Prior to that he was living alone in a 54[place] in a 3rd floor apartment, elevator access, ambulates with a RW. PT evaluation
recommending SNF. Patient would like to return to [facility]. Referral sent and accepted. Patient needs current PT/OT notes and insurance preauthorization prior to discharge. Plan is for the patient to go to [facility] when medically stable. CM to follow
--- NOTE | 2025-05-09 11:55 | W.PN.CARDCBS ---
Addendum entered and electronically signed by Eris Guerrero DO 05/09/25 12:43:
I saw and examined the patient.
The Information Security Specialist's note was reviewed and I agree with the note.
Comment:
Plan:
Wt down almost 50 lbs from admit.
s/p ICD 05/08/2025. Restrictions reviewed with pt.
Cr stable, 1 today
EF 25% this admit
Possible small pericardial effusion by chest xray this admit
Recheck limited echo to eval for pericardial effusion prior to d/c.
With symptomatic hypotension, hold Lasix and GDMT meds starting 05/09/25 and reassess BP in AM
Outpatient dose of Toprol XL 25 mg daily was changed to Coreg 6.25 mg BID this admission.
New to Entresto and Aldactone
Not a candidate for SGLT 2 inhibitors due to UTI/scrotal cellulitis
Continue Xarelto 15 mg daily, this is the correct dose given his need for Plavix 75 mg daily due to recent PCI as per [facility] trial data.
Patient also reports a h/o melanoma on his back that was being followed at [facility], He will need an outpatient plan for this.
Discussed with nursing.
Original Note:
Today's Communication / Plan
-
Hold GDMT and diuretics tonight and reassess BP in AM
Impression / Plan
-
PCP: Dr. Efrain Ma at rehab and sees a PCP as an outpatient
Card: Dr. Charles Sim at [facility]
Impression:
Admitted with acute hypoxia and CHF 04/29/2025
Recent hospitalizations at [facility] for sepsis,scrotal cellulitis, and heart failure 01/2025 and earlier 04/2025
Acute on chronic HFrEF
ICM EF 15-20% by echo at [facility] 01/16/25, down to 5-10% by echo at [facility] 04/17/25
prescribed Life Vest at [facility] after 01/2025 admission with plan to recheck echo after 90 days of medical therapy (even though revascularized 01/26/25) then readmitted to [facility] 04/2025 and EF 5-10%, but no ICD placed due to sepsis
s/p Medtronic single-chamber ICD 05/08/25
CAD
s/p PCI distal RCA at [facility] 01/26/2025
h/o CVA
Sinus rhythm throughout admission, possible paroxysmal atrial fibrillation
Hyperlipidemia
Obstructive sleep apnea
Melanoma, was following at [facility], therapy interrupted by repeated admissions
h/o DVT, previously had IVC filter
Chronic Xarelto OAC
Xarelto 15 mg daily while on Plavix following PCI 01/26/25
Previous cardiovascular studies from [facility]:
Left heart cath 01/20/2025: 80% trifurcating distal RCA, 80% D2. Right heart cath not performed. Groin access not attempted due to ongoing groin discomfort/scrotal edema/hydrocele/IVC filter
Left heart cath 01/26/2025 successful PCI with RONN and PTCA to 99% distal RCA
Echo 01/16/2025: LVEF 15 to 20%
Echo 04/17/2025 LVEF 5 to 10%
Echo 05/01/2025: LVEF 25%, mild cLVH (1.2 cm), enlarged RV size and reduced RV systolic function, mild to moderate MR, mild TR, PAP 50 mmHg
Plan:
-Patient admitted with acute HFrEF and complex PMH 04/29/25 following multiple recent admissions to [facility].
-Weight is down at 43 lbs this admission with Lasix 80 mg IV BID plus metolazone on 05/02/25 and 05/05/25. LE edema has significantly improved. Dry weight unknown. Cre stable at 1.0 on labs reviewed by me 05/09/25, but now with symptomatic hypotension
so will hold Lasix and GDMT meds starting 05/09/25 and reassess BP in AM
-Patient was taking Bumex 2 mg PO BID prior to admission.
-EF 5-10% by echo at [facility] earlier this month, but looks closer to 25% by echo this admission.
-Outpatient dose of Toprol XL 25 mg daily was changed to Coreg 6.25 mg BID this admission. Now on hold due to symptomatic hypotension 05/09/25, follow BP and resume once improved.
-New to Entresto 24/26 mg BID this admission. Now on hold due to symptomatic hypotension 05/09/25, follow BP and resume once improved.
-New to spironolactone 25 mg daily this admission. Now on hold due to symptomatic hypotension 05/09/25, follow BP and resume once improved.
-Not a candidate for SGLT 2 inhibitors due to UTI/scrotal cellulitis
-Follow labs and VS, previous attempts at GDMT were limited by hypotension
-Patient had Medtronic single-chamber ICD placed on 05/08/2025.
-Continue Xarelto 15 mg daily, this is the correct dose given his need for Plavix 75 mg daily due to recent PCI as per [facility] trial data.
-Patient also reports a h/o melanoma on his back that was being followed at [facility], patient says that he had been referred for what sounds like Moh's surgery, but plan interrupted by repeated admissions as noted above. He will need an outpatient plan
to have this removed as that could affect his long-term outcome
-Patient now asking to switch cardiology care to [facility]. Patient previously followed with Dr. Charles Sim at [facility], then admitted to [facility] and saw a different manager of program there and now he's at [facility] because he is undergoing rehab
stay at [facility]. Not sure how likely patient is to ever return to an independent living situation.
05/02/2025 -Received records from [facility] -Reviewed cardiology consult note and discharge summary and was able to obtain more past medical history which includes distal RCA stent 01/26/2025, heart failure reduced EF
of 15 to 20%, DVT status post IVC filter in 2014, hypertension, obstructive sleep apnea. Admitted 04/16/2025 - 04/25/2025 for concern of cellulitis of scrotum and UTI. Was septic with blood pressures in the 70s/50, required initiation of Levophed and
was started on antibiotics. Cardiology was consulted regarding patient's GDMT and GDMT was stopped due to hypotension. He had previously been on Entresto, spironolactone, Farxiga, carvedilol. Because of hypotension he was only continued on
metoprolol 25 mg daily and Bumex. He was continued on Plavix and Xarelto. Plan to consider single-chamber ICD for primary prevention of sudden cardiac once infection cleared. Had narrow QRS so not thought to be a INTERNATIONAL CONTROLLER candidate.
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
Subjective
Date of Service: May 09, 2025
Lightheaded sitting in chair
Objective
Labs:
05/09/25 03:26
05/09/25 03:26
Labs
Hgb 11.4 g/dL (13.0-18.0) L 05/09/25 03:26
Hct 36.2 % (39.0-52.0) L 05/09/25 03:26
Plt Count 187 10^3/uL (130-400) 05/09/25 03:26
PT 15.2 Sec (11.4-14.6) H 05/08/25 06:30
INR 1.17 05/08/25 06:30
Sodium 140 mmol/L (135-145) 05/09/25 03:26
Potassium 3.8 mmol/L (3.5-5.1) 05/09/25 03:26
BUN 43 mg/dl (9-20) H 05/09/25 03:26
Creatinine 1.0 mg/dL (0.7-1.3) 05/09/25 03:26
Glucose 142 mg/dl (70-99) H 05/09/25 03:26
Vital Signs and I&O:
Vital Signs
Temp Pulse Resp BP Pulse Ox
97.5 F 64 20 87/63 99
05/09/25 08:09 05/09/25 11:53 05/09/25 08:09 05/09/25 11:53 05/09/25 08:09
Vital Signs
Temp Pulse Resp BP Pulse Ox
97.5 F 64 20 87/63 99
05/09/25 08:09 05/09/25 11:53 05/09/25 08:09 05/09/25 11:53 05/09/25 08:09
Intake & Output
05/07/25 05/08/25 05/09/25 05/10/25
06:59 06:59 06:59 06:59
Intake Total 1820 / 1820 600 / 600 480 / 480 120 / 120
Output Total 3295 / 3295 3000 / 3000 1900 / 1900
Balance -1475 / -1475 -2400 / -2400 -1420 / -1420 120 / 120
Physical Exam
Physical Exam
GEN: NAD. AAOx3
LUNGS: 2 L NC. No audible wheeze
CV: SR on tele
EXT: +1 B/L LE edema
NEURO: Gross non-focal
SKIN: No rash
--- NOTE | 2025-05-09 11:58 | PTCARENOTE ---
Patient out of bed in chair, mild dizziness. BP 79/55. returned to bed 87/63, symptoms resolved. Dr Guerrero notified
[2025-05-09 13:04] LABS: Glucose - Point of Care 107 mg/dl (70-99)
--- NOTE | 2025-05-09 13:05 | W.PN.HOSP.TC ---
Today's Communication/Plan
-
.
Assessment / Plan
Assessment / Plan
Physical exam:
Gen-AAOx3, NAD, obese
HEENT-NC, AT, anicteric, clear oral mm
Neck-supple
CV-reg, no M, +S1/S2
Lungs-clear bilaterally,
Abd-soft, NT, obese
Ext- less edema
Musculoskeletal-no cyanosis, clubbing
Skin-warm and dry
Neuro-grossly non-focal
Psych-calm, cooperative, talkative
74-year-old male past medical history of BPH, HFrEF and HFpEF CAD status post RCA stent, and hypertension, hydrocele, obesity, colon cancer, skin cancer, diabetes, glaucoma, DVT status post IVC filter in 2014, type SAMI is presented with worsening of
lower extremity edema and abdominal distention.
# Symptomatic hypotension, likely overdiuresis. Hold diuretic and blood pressure medications from now 1. Reassess in AM. Follow precautions. Discussed with cardiology and nursing staff
#Acute hypoxic respiratory failure -likely multifactorial etiology including acute pulmonary edema from heart failure exacerbation, pleural effusions, acute bronchitis with active wheezing, etc.
Weaned off oxygen to room air.
Chest x-ray demonstrates moderate cardiomegaly, moderate pulmonary edema, moderate size right and small left pleural effusions.
Repeat chest x ray did not show definitive infiltrate
Sputum culture is pending
#Acute on chronic systolic and diastolic heart failure exacerbation
Status post diuretic therapy. Adjusting his blood pressure medications and cardiac medications. Will continue to follow with follow-up blood pressure and adjust medications as tolerated.
#Severe ischemic cardiomyopathy with LVEF 15 to 20% in January 2025 without improvement following revascularization. NYHA III heart failure symptoms. QRS duration less than 120 ms. Status post single-chamber ICD placement by Dr. Garvin 05/08.
#NSVT with history of reduced ejection fraction
ICD placed.
#Rash on the back
?allergic versus pressure rash
trial of hydrocortisone cream
Significant improvement
#CAD with RCA stent on 01/26/25
Continue with Plavix, statin and beta-inna
Currently on Xarelto, and adjusted to 15 mg per cardiology recommendation and [place] trial data-Xarelto on hold for ICD tomm
#Essential hypertension
stable.
#DM2 without hyperglycemia -does not appear to be on medications for diabetes.
Continue low resistance insulin scale. Hemoglobin A1c 6.1%.
History of stroke -details unknown.
SAMI - intolerant of CPAP.
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 Currently on Xarelto, and adjusted to 15 mg per cardiology recommendation and [place] trial data
Neurogenic bladder -chronic Hester catheter. Unclear when it was last changed.
Hydrocele -was due for treatment by his urologist but postponed due to respiratory status.
BPH -tamsulosin.
Chronic anemia -hemoglobin 11.5. Baseline unknown. Monitor for now.
Skin cancer status post surgery at [facility]
History of colon cancer
Morbid obesity due to excess calories
History of epistaxis
History of thyroid nodule
Buttock stage II pressure injury POA
Offloading
Wound care
Full code
PT/OT -SNF on discharge.
Total time spent to see the patient, examine the patient, review data and lab result, discuss treatment plan with patient, cardiology, nursing staff around 55 minutes
Anticipated Discharge: 24 - 48 hours
Subjective/Interval History
-
Date of Service: May 09, 2025
No chest pain
No sob
he felt dizzy upon standing
Objective Data
-
Labs:
Laboratory Results
05/09/25
03:26
WBC 6.5
Hgb 11.4 L
Hct 36.2 L
Plt Count 187
Sodium 140
Potassium 3.8
Chloride 94 L
Carbon Dioxide 36 H
BUN 43 H
Creatinine 1.0
Glucose 142 H
Calcium 8.5
Vital Signs:
Vital Signs
Temp Pulse Resp BP Pulse Ox
97.5 F 64 20 87/63 99
05/09/25 08:09 05/09/25 11:53 05/09/25 08:09 05/09/25 11:53 05/09/25 08:09
I&O
05/08/25 05/09/25 05/10/25
06:59 06:59 06:59
Intake Total 600 / 600 480 / 480 120 / 120
Output Total 3000 / 3000 1900 / 1900 750 / 750
Balance -2400 / -2400 -1420 / -1420 -630 / -630
--- NOTE | 2025-05-09 15:57 | PTCARENOTE ---
Patient with 26 beats of non-sustained VT. Patient asymptotic. Placed back on 2 liters NC. Notified Scarlet Childers notified. BMP and MG collected. Coreg given early. BP left radial 109/70, SR in the 60's with PVC's and bigeminy
--- NOTE | 2025-05-09 16:18 | W.PN.UPDATE ---
Addendum entered and electronically signed by Scarlet Childers PA-C 05/09/25 17:43:
Potassium level came back at 4.1, will not give any additional supplementation. Coreg dose was given. Continue to follow on telemetry, reviewed by me no additional NSVT. He is having frequent PVCs which she has had earlier this admission as well.
Original Note:
Update Note
Progress Note Update
CTSP for a 26 beat run of NSVT. Patient was asymptomatic, he denies any chest pain, SOB or dizziness. Appears to have broken spontaneously to SR. Potassium was 3.8 this morning. Patient was given KCl 20 mEq BID dose this morning and is due for
another dose now. We are holding this afternoon's dose of Lasix. Recheck labs with BMP and magnesium level, ordered by me. Originally we had planned to hold Coreg dose this evening due to symptomatic hypotension earlier today, but will resume
Coreg and give dose now as BP has improved somewhat. 31 minutes critical care time.
[2025-05-09] MEDS: LASIX IV (16:27)
[2025-05-09] MEDS: XARELTO 15 MG PO (16:36)
[2025-05-09] MEDS: LIPITOR 80 MG PO (16:37)
[2025-05-09] MEDS: NEURONTIN PO (16:59)
[2025-05-09 17:14] LABS: Glucose - Point of Care 140 mg/dl (70-99)
[2025-05-09 17:32] LABS: Blood Urea Nitrogen 40 mg/dl (9-20); Calcium 8.3 mg/dl (8.4-10.2); Chloride 94 mmol/L (98-107); Estimated Creatinine Clearance 72 ml/min; Glucose 134 mg/dl (70-99); Magnesium 2.2 mg/dl (1.6-2.3); Potassium 4.1 mmol/L (3.5-5.1); Sodium 139 mmol/L (135-145); eGFR > 60.00
[2025-05-09 17:43] LABS: Carbon Dioxide 35 mmol/L (22-30)
[2025-05-09 22:26] LABS: Glucose - Point of Care 140 mg/dl (70-99)
[2025-05-09] MEDS: XALATAN OPHTHALMIC SOLUTION 1 DROP OPHTH (22:38)
--- NOTE | 2025-05-09 23:06 | PTCARENOTE ---
Rec'd pt at change of shift. Pt AAO*3, VSS, and Sr on TELE monitor with PVC's. Pt denies any pain or discomfort at rest, however reports discomfort with position changes in L upper shoulder. Pt updated on plan of care, resting with call aguillon in
reach, and plan of care ongoing. Pt encouraged to cough and turn in bed. See MAR and flowchart for full pt care and assessment.
[2025-05-10] VITALS (14 sets, daily range): BP systolic 99–145; BP diastolic 64–92; PULSE 74; O2SAT 96; BMI 32.7
[2025-05-10 04:34] LABS: Blood Urea Nitrogen 38 mg/dl (9-20); Calcium 8.3 mg/dl (8.4-10.2); Chloride 96 mmol/L (98-107); Estimated Creatinine Clearance 80 ml/min; Glucose 95 mg/dl (70-99); Potassium 4.1 mmol/L (3.5-5.1); Sodium 141 mmol/L (135-145); eGFR > 60.00
[2025-05-10 04:45] LABS: Carbon Dioxide 36 mmol/L (22-30)
[2025-05-10 08:05] LABS: Glucose - Point of Care 94 mg/dl (70-99)
[2025-05-10] MEDS: NOVOLOG FLEXPEN-LOW RESISTANCE SC ×3 (08:29→17:29)
[2025-05-10] MEDS: PROSCAR 5 MG PO (08:53)
[2025-05-10] MEDS: MUCINEX 600 MG PO ×2 (08:53→20:33)
[2025-05-10] MEDS: NEURONTIN 600 MG PO ×3 (08:53→22:20)
[2025-05-10] MEDS: COREG 6.25 MG PO ×2 (08:53→20:34)
[2025-05-10] MEDS: PLAVIX 75 MG PO (08:53)
[2025-05-10] MEDS: KCL 20 MEQ PO ×2 (08:53→16:46)
[2025-05-10] MEDS: PROTONIX 40 MG PO (08:53)
[2025-05-10] MEDS: ALPHAGAN 0.2% EYE DROPS 1 DROP OPHTH (08:54)
[2025-05-10] MEDS: DESENEX/MITRAZOL/ZEASORB 1 APPLIC TOPICAL ×2 (08:54→20:34)
[2025-05-10] MEDS: LAC HYDRIN, AM LACTIN LOTION 1 APPLIC TOPICAL (09:05)
[2025-05-10] MEDS: FLOMAX 0.4 MG PO (09:06)
[2025-05-10] MEDS: HYDROCORTISONE 1% CREAM 1 APPLIC TOPICAL ×2 (09:07→20:35)
[2025-05-10] MEDS: LASIX 80 MG PO ×2 (10:25→16:46)
--- NOTE | 2025-05-10 11:30 | W.PN.CARDCBS ---
Addendum entered and electronically signed by Eris Guerrero DO 05/10/25 18:34:
I saw and examined the patient.
The Licensing [address] Magistrate's note was reviewed and I agree with the note.
Comment:
Plan:
He may be close to his dry weight. Lasix was held yesterday due to hypotension.
Start Lasix 80 mg p.o. twice daily
Restart Entresto and spironolactone as BP will allow.
Wt down almost 50 lbs from admit.
s/p ICD 05/08/2025.
EF 25% this admit
Possible small pericardial effusion by chest xray this admit
Recheck limited echo to eval for pericardial effusion prior to d/c.
Outpatient dose of Toprol XL 25 mg daily was changed to Coreg 6.25 mg BID this admission.
New to Entresto and Aldactone
Not a candidate for SGLT 2 inhibitors due to UTI/scrotal cellulitis
Continue Xarelto 15 mg daily, this is the correct dose given his need for Plavix 75 mg daily due to recent PCI as per PIONEER trial data.
Patient also reports a h/o melanoma on his back that was being followed at [facility], He will need an outpatient plan for this.
Discussed with nursing.
Original Note:
Today's Communication / Plan
-
Start Lasix 80 mg PO BID
Restart Entresto and spironolactone
Impression / Plan
-
PCP: Dr. Efrain Ma at rehab and sees a PCP as an outpatient
Card: Dr. Charles Sim at [facility]
Impression:
Admitted with acute hypoxia and CHF 04/29/2025
Recent hospitalizations at [facility] for sepsis,scrotal cellulitis, and heart failure 01/2025 and earlier 04/2025
Acute on chronic HFrEF
ICM EF 15-20% by echo at [facility] 01/16/25, down to 5-10% by echo at [facility] 04/17/25
prescribed Life Vest at [facility] after 01/2025 admission with plan to recheck echo after 90 days of medical therapy (even though revascularized 01/26/25) then readmitted to [facility] 04/2025 and EF 5-10%, but no ICD placed due to sepsis
s/p Medtronic single-chamber ICD 05/08/25
CAD
s/p PCI distal RCA at [facility] 01/26/2025
h/o CVA
Sinus rhythm throughout admission, possible paroxysmal atrial fibrillation
Hyperlipidemia
Obstructive sleep apnea
Melanoma, was following at [facility], therapy interrupted by repeated admissions
h/o DVT, previously had IVC filter
Chronic Xarelto OAC
Xarelto 15 mg daily while on Plavix following PCI 01/26/25
Previous cardiovascular studies from [facility]:
Left heart cath 01/20/2025: 80% trifurcating distal RCA, 80% D2. Right heart cath not performed. Groin access not attempted due to ongoing groin discomfort/scrotal edema/hydrocele/IVC filter
Left heart cath 01/26/2025 successful PCI with RONN and PTCA to 99% distal RCA
Echo 01/16/2025: LVEF 15 to 20%
Echo 04/17/2025 LVEF 5 to 10%
Echo 05/01/2025: LVEF 25%, mild cLVH (1.2 cm), enlarged RV size and reduced RV systolic function, mild to moderate MR, mild TR, PAP 50 mmHg
Plan:
-Patient admitted with acute HFrEF and complex PMH 04/29/25 following multiple recent admissions to [facility].
-Weight is up 2 lbs overnight, but overall down 41 lbs this admission with Lasix 80 mg IV BID plus metolazone on 05/02/25 and 05/05/25. Patient then started with lightheadedness and near syncope on 05/09/25 and Lasix held. Starting Lasix 80 mg PO BID
on 05/10/25, ordered by me, and if stable then patient can go back to [facility] 05/11/25.
-Patient was taking Bumex 2 mg PO BID prior to admission, recommend Lasix 80 mg PO BID upon d/c.
-EF 5-10% by echo at [facility] earlier this month, but looked closer to 25% by echo this admission.
-Outpatient dose of Toprol XL 25 mg daily was changed to Coreg 6.25 mg BID this admission. Tolerating most doses.
-New to Entresto 24/26 mg BID this admission, but held due to symptomatic hypotension 05/09/25. BP improved, likely in part to transition to PO diuretics, so will restart Entresto 05/10/25.
-New to spironolactone 25 mg daily this admission, but held due to symptomatic hypotension 05/09/25, follow BP and resume once improved.
-Not a candidate for SGLT 2 inhibitors due to UTI/scrotal cellulitis
-Follow labs and VS, previous attempts at GDMT were limited by hypotension
-Patient had Medtronic single-chamber ICD placed on 05/08/2025.
-Continue Xarelto 15 mg daily, this is the correct dose given his need for Plavix 75 mg daily due to recent PCI as per PIONEER trial data.
-Patient also reports a h/o melanoma on his back that was being followed at [facility], patient says that he had been referred for what sounds like Moh's surgery, but plan interrupted by repeated admissions as noted above. He will need an outpatient plan
to have this removed as that could affect his long-term outcome
-Patient now asking to switch cardiology care to [facility]. Patient previously followed with Dr. Charles Sim at [facility], then admitted to [facility] and saw a different waiter/waitress cocktail lounge there and now he's at [facility] because he is undergoing rehab
stay at [facility].
-Long talk with patient at bedside on 05/10/2025 regarding his social situations. Patient has lots of stories and every story has another story, but essentially he is living at a [place]+ community where he rents a home and his lease is currently good
through October. He says he can no longer afford to live there since his and he is planning to move out and move closer to his brother in [place], but his brother in [place] will not be able to act as a primary caregiver.
Patient reports he tried to recruit his daughter, Fernanda, to be a paid caregiver using a voucher program, but she was not interested. Patient thinks that he can get free [employer] [place] timekeeper care through the [place], I told him that sounded too
good to be true. Patient then said he had another plan that involved him moving to [place] to live near his son, but he feels his daughter is trying to sabotage that plan to keep him local and take his money, but this is the same daughter he was
recruiting to be his caregiver. I shared with the patient my concern that he will never be able to live independently again, his goals remain as stated above.
05/02/2025 -Received records from [facility], [place] -Reviewed cardiology consult note and discharge summary and was able to obtain more past medical history which includes distal RCA stent 01/26/2025, heart failure reduced EF
of 15 to 20%, DVT status post IVC filter in 2014, hypertension, obstructive sleep apnea. Admitted 04/16/2025 - 04/25/2025 for concern of cellulitis of scrotum and UTI. Was septic with blood pressures in the 70s/50, required initiation of Levophed and
was started on antibiotics. Cardiology was consulted regarding patient's GDMT and GDMT was stopped due to hypotension. He had previously been on Entresto, spironolactone, Farxiga, carvedilol. Because of hypotension he was only continued on
metoprolol 25 mg daily and Bumex. He was continued on Plavix and Xarelto. Plan to consider single-chamber ICD for primary prevention of sudden cardiac once infection cleared. Had narrow QRS so not thought to be a GRAIN ELEVATOR MAN candidate.
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
Subjective
Date of Service: May 10, 2025
Less SOB, no lightheadedness
Objective
Labs:
05/09/25 03:26
05/10/25 03:26
Labs
Hgb 11.4 g/dL (13.0-18.0) L 05/09/25 03:26
Hct 36.2 % (39.0-52.0) L 05/09/25 03:26
Plt Count 187 10^3/uL (130-400) 05/09/25 03:26
PT 15.2 Sec (11.4-14.6) H 05/08/25 06:30
INR 1.17 05/08/25 06:30
Sodium 141 mmol/L (135-145) 05/10/25 03:26
Potassium 4.1 mmol/L (3.5-5.1) 05/10/25 03:26
BUN 38 mg/dl (9-20) H 05/10/25 03:26
Creatinine 0.9 mg/dL (0.7-1.3) 05/10/25 03:26
Glucose 95 mg/dl (70-99) 05/10/25 03:26
Vital Signs and I&O:
Vital Signs
Temp Pulse Resp BP Pulse Ox
98.3 F 74 18 129/79 100
05/10/25 07:31 05/10/25 08:00 05/10/25 07:31 05/10/25 07:31 05/10/25 07:31
Vital Signs
Temp Pulse Resp BP Pulse Ox
98.3 F 74 18 129/79 100
05/10/25 07:31 05/10/25 08:00 05/10/25 07:31 05/10/25 07:31 05/10/25 07:31
Intake & Output
05/08/25 05/09/25 05/10/25 05/11/25
06:59 06:59 06:59 06:59
Intake Total 600 / 600 480 / 480 1460 / 1460
Output Total 3000 / 3000 1900 / 1900 2650 / 2650
Balance -2400 / -2400 -1420 / -1420 -1190 / -1190
Physical Exam
Physical Exam
GEN: NAD. AAOx3
LUNGS: RA. No audible wheeze
CV: SR on tele
EXT: +1 B/L LE edema
NEURO: Gross non-focal
SKIN: No rash
[2025-05-10] MEDS: TYLENOL 650 MG PO (11:59)
[2025-05-10 12:00] LABS: Glucose - Point of Care 135 mg/dl (70-99)
--- NOTE | 2025-05-10 12:18 | CM ---
Chart reviewed. Patient still being diuresed. Patient is independent of ADLS, lives in a [facility] Care Community in a apartment, 3rd floor, elevator access, ambulating with a RW. Patient was recently discharged from [facility] to [facility].
PT/OT evaluation recommending SNF. Patient would like to go back to [facility]. Referral sent and accepted. Patient will need insurance authorization. Plan is for the patient to go to [facility]. CM to follow
--- NOTE | 2025-05-10 14:15 | W.PN.HOSP.TC ---
Today's Communication/Plan
-
likely dc in am
Assessment / Plan
Assessment / Plan
Physical exam:
Gen-AAOx3, NAD, obese
HEENT-NC, AT, anicteric, clear oral mm
Neck-supple
CV-reg, no M, +S1/S2
Lungs-clear bilaterally,
Abd-soft, NT, obese
Ext- less edema
Musculoskeletal-no cyanosis, clubbing
Skin-warm and dry
Neuro-grossly non-focal
Psych-calm, cooperative, talkative
74-year-old male past medical history of BPH, HFrEF and HFpEF CAD status post RCA stent, and hypertension, hydrocele, obesity, colon cancer, skin cancer, diabetes, glaucoma, DVT status post IVC filter in 2014, type SAMI is presented with worsening of
lower extremity edema and abdominal distention.
# Symptomatic hypotension, resolved.
#Acute hypoxic respiratory failure -likely multifactorial etiology including acute pulmonary edema from heart failure exacerbation, pleural effusions, acute bronchitis with active wheezing, etc.
Weaned off oxygen to room air.
Chest x-ray demonstrates moderate cardiomegaly, moderate pulmonary edema, moderate size right and small left pleural effusions.
Repeat chest x ray did not show definitive infiltrate
Sputum culture is with vic and rare gram positive cocci
#Acute on chronic systolic and diastolic heart failure exacerbation
Adjusting his blood pressure medications and cardiac medications.
#Severe ischemic cardiomyopathy with LVEF 15 to 20% in January 2025 without improvement following revascularization. NYHA III heart failure symptoms. QRS duration less than 120 ms. Status post single-chamber ICD placement by Dr. Garvin 05/08.
#NSVT with history of reduced ejection fraction
ICD placed.
#CAD with RCA stent on 01/26/25
Continue with Plavix, statin and beta-inna
Currently on Xarelto, and adjusted to 15 mg per cardiology recommendation and Bandera trial data-Xarelto on hold for ICD tomm
#Essential hypertension
stable.
#DM2 without hyperglycemia -does not appear to be on medications for diabetes.
Continue low resistance insulin scale. Hemoglobin A1c 6.1%.
History of stroke -details unknown.
SAMI - intolerant of CPAP.
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 Currently on Xarelto, and adjusted to 15 mg per cardiology recommendation and Bandera trial data
Neurogenic bladder -chronic Hester catheter. Unclear when it was last changed.
Hydrocele -was due for treatment by his urologist but postponed due to respiratory status.
BPH -tamsulosin.
Chronic anemia -hemoglobin 11.5. Baseline unknown. Monitor for now.
Skin cancer status post surgery at [facility]
History of colon cancer
Morbid obesity due to excess calories
History of epistaxis
History of thyroid nodule
Buttock stage II pressure injury POA
Offloading
Wound care
Full code
PT/OT -SNF on discharge.
Total time spent to see the patient, examine the patient, review data and lab result, discuss treatment plan with patient, cardiology, nursing staff around 55 minutes
Anticipated Discharge: Within 24 hours
Subjective/Interval History
-
Date of Service: May 10, 2025
No sob
No chest pain
No fevers
Objective Data
-
Labs:
Laboratory Results
05/10/25
03:26
Sodium 141
Potassium 4.1
Chloride 96 L
Carbon Dioxide 36 H
BUN 38 H
Creatinine 0.9
Glucose 95
Calcium 8.3 L
Vital Signs:
Vital Signs
Temp Pulse Resp BP Pulse Ox
97.9 F 78 18 110/92 96
05/10/25 11:36 05/10/25 11:36 05/10/25 11:36 05/10/25 11:36 05/10/25 11:36
I&O
05/09/25 05/10/25 05/11/25
06:59 06:59 06:59
Intake Total 480 / 480 1460 / 1460
Output Total 1900 / 1900 2650 / 2650
Balance -1420 / -1420 -1190 / -1190
[2025-05-10 16:35] LABS: Glucose - Point of Care 103 mg/dl (70-99)
[2025-05-10] MEDS: LIPITOR 80 MG PO (17:04)
[2025-05-10] MEDS: XARELTO 15 MG PO (17:04)
--- NOTE | 2025-05-10 18:00 | PTCARENOTE ---
Pt received this am with no c/o of any pain or sob. Assisted oob to the chair with the walker. Pt tolerated oob all day in the recliner chair. Hester draining clear alfred urine. Room air sat 98%
[2025-05-10] MEDS: ENTRESTO 24 MG/26 MG 1 TAB PO (20:33)
[2025-05-10] MEDS: VENTOLIN NEBULES 2.5 MG INH (21:17)
[2025-05-10 21:46] LABS: Glucose - Point of Care 102 mg/dl (70-99)
[2025-05-10] MEDS: XALATAN OPHTHALMIC SOLUTION 1 DROP OPHTH (22:20)
--- NOTE | 2025-05-11 00:59 | PTCARENOTE ---
Rec'd pt at change of shift. Pt AAO*3, VSS, and SR on TELE monitor with BBB. Pt denies any pain or discomfort. Pt encouraged to turn/reposition in bed as well as ambulate. Chronic cameron intact and closed system maintained. Pt updated on plan of
care and resting with call aguillon in reach. See MAR and flowchart for full pt care and assessment. Plan of care ongoing.
[2025-05-11 04:11] VITALS: BP 94/65
[2025-05-11 04:32] VITALS: BMI 32.8
[2025-05-11 07:51] VITALS: BP 109/84
[2025-05-11 08:01] LABS: Glucose - Point of Care 87 mg/dl (70-99)
[2025-05-11 08:12] VITALS: BP 125/54
[2025-05-11] MEDS: NEURONTIN 600 MG PO (08:17)
[2025-05-11] MEDS: COREG 6.25 MG PO (08:17)
[2025-05-11] MEDS: PROTONIX 40 MG PO (08:17)
[2025-05-11] MEDS: ENTRESTO 24 MG/26 MG 1 TAB PO (08:17)
[2025-05-11] MEDS: KCL 20 MEQ PO (08:18)
[2025-05-11] MEDS: PLAVIX 75 MG PO (08:18)
[2025-05-11] MEDS: FLOMAX 0.4 MG PO (08:18)
[2025-05-11] MEDS: MUCINEX 600 MG PO (08:18)
[2025-05-11] MEDS: LASIX 40 MG PO (08:18)
[2025-05-11] MEDS: PROSCAR 5 MG PO (08:18)
[2025-05-11] MEDS: HYDROCORTISONE 1% CREAM 1 APPLIC TOPICAL (08:18)
[2025-05-11] MEDS: ALPHAGAN 0.2% EYE DROPS 1 DROP OPHTH (08:19)
[2025-05-11] MEDS: DESENEX/MITRAZOL/ZEASORB 1 APPLIC TOPICAL (08:20)
[2025-05-11] MEDS: LAC HYDRIN, AM LACTIN LOTION 1 APPLIC TOPICAL (08:20)
[2025-05-11] MEDS: ALDACTONE 25 MG PO (08:23)
[2025-05-11] MEDS: NOVOLOG FLEXPEN-LOW RESISTANCE SC (08:23)
--- NOTE | 2025-05-11 09:56 | W.PN.CARDCBS ---
Addendum entered and electronically signed by Armando Ortiz MD 05/11/25 14:23:
I saw and examined the patient.
The Interventional Radiology Tech's note was reviewed and I agree with the note.
Comment:
GEN: No distress, awake, Ox3
HEENT: supple, anicteric, mmm
LUNGS: CTA, no wheezes/rales
CV: Reg, S1/S2, 1/6 syst LSB, no murmur
ABD: soft, BS+, NT/ND
EXT: No edema
NEURO: Gross non-focal
SKIN: No rash
Plan;
Overall stable and doing well. Will discharge on Lasix 40 mg p.o. twice daily.
Continue Coreg, Entresto, and spironolactone.
Continue Xarelto 15 mg daily with Plavix 75 mg daily.
Status post ICD.
Again encouraged to follow-up regarding possible melanoma on his back.
Original Note:
Today's Communication / Plan
-
Lasix 40 mg PO BID ordered by hospitalist attending
Tolerating GDMT at present
f/u with [facility], Dr. Wilkes
Impression / Plan
-
PCP: Dr. Efrain Ma at rehab and sees a PCP as an outpatient
Card: Dr. Charles Sim at [facility]
Impression:
Admitted with acute hypoxia and CHF 04/29/2025
Recent hospitalizations at [facility] for sepsis,scrotal cellulitis, and heart failure 01/2025 and earlier 04/2025
Acute on chronic HFrEF
ICM EF 15-20% by echo at [facility] 01/16/25, down to 5-10% by echo at [facility] 04/17/25
prescribed Life Vest at [facility] after 01/2025 admission with plan to recheck echo after 90 days of medical therapy (even though revascularized 01/26/25) then readmitted to [facility] 04/2025 and EF 5-10%, but no ICD placed due to sepsis
s/p Medtronic single-chamber ICD 05/08/25
CAD
s/p PCI distal RCA at [facility] 01/26/2025
h/o CVA
Sinus rhythm throughout admission, possible paroxysmal atrial fibrillation
Hyperlipidemia
Obstructive sleep apnea
Melanoma, was following at [facility], therapy interrupted by repeated admissions
h/o DVT, previously had IVC filter
Chronic Xarelto OAC
Xarelto 15 mg daily while on Plavix following PCI 01/26/25
Previous cardiovascular studies from [facility]:
Left heart cath 01/20/2025: 80% trifurcating distal RCA, 80% D2. Right heart cath not performed. Groin access not attempted due to ongoing groin discomfort/scrotal edema/hydrocele/IVC filter
Left heart cath 01/26/2025 successful PCI with RONN and PTCA to 99% distal RCA
Echo 01/16/2025: LVEF 15 to 20%
Echo 04/17/2025 LVEF 5 to 10%
Echo 05/01/2025: LVEF 25%, mild cLVH (1.2 cm), enlarged RV size and reduced RV systolic function, mild to moderate MR, mild TR, PAP 50 mmHg, normal pericardium without pericardial effusion
Echo 05/11/25: f/u study, pending
Plan:
-Patient admitted with acute HFrEF and complex PMH 04/29/25 following multiple recent admissions to [facility].
-Weight is up 2 lbs overnight, but overall down 41 lbs this admission with Lasix 80 mg IV BID plus metolazone on 05/02/25 and 05/05/25. Patient then started with lightheadedness and near syncope on 05/09/25 and Lasix held. Recommend Lasix 80 mg PO BID,
but defer to hospitalist who prefers 40 mg PO BID. Patient was taking Bumex 2 mg PO BID prior to admission
-EF 5-10% by echo at [facility] earlier this month, but looked closer to 25% by echo this admission.
-Outpatient dose of Toprol XL 25 mg daily was changed to Coreg 6.25 mg BID this admission. Tolerating most doses.
-New to Entresto 24/26 mg BID this admission, but held due to symptomatic hypotension 05/09/25. BP improved, likely in part to transition to PO diuretics, so will restart Entresto 05/10/25.
-New to spironolactone 25 mg daily this admission, but held due to symptomatic hypotension 05/09/25, follow BP and resume once improved.
-Not a candidate for SGLT 2 inhibitors due to UTI/scrotal cellulitis
-Patient had Medtronic single-chamber ICD placed on 05/08/2025.
-Continue Xarelto 15 mg daily, this is the correct dose given his need for Plavix 75 mg daily due to recent PCI as per PIONEER trial data.
-Patient also reports a h/o melanoma on his back that was being followed at [facility], patient says that he had been referred for what sounds like Moh's surgery, but plan interrupted by repeated admissions as noted above. He will need an outpatient plan
to have this removed as that could affect his long-term outcome
-Patient asking to switch cardiology care to [facility]. Patient previously followed with Dr. Charles Sim at [facility], then admitted to [facility] and saw a different denture finisher there and now he's at [facility] because he is undergoing rehab stay
at [facility]. Patient seen initially by Dr. Wilkes.
-Stable for transfer back to [facility] from a cardiac standpoint
*05/02/2025 -Received records from [facility] -Reviewed cardiology consult note and discharge summary and was able to obtain more past medical history which includes distal RCA stent 01/26/2025, heart failure reduced EF of
15 to 20%, DVT status post IVC filter in 2014, hypertension, obstructive sleep apnea. Admitted 04/16/2025 - 04/25/2025 for concern of cellulitis of scrotum and UTI. Was septic with blood pressures in the 70s/50, required initiation of Levophed and
was started on antibiotics. Cardiology was consulted regarding patient's GDMT and GDMT was stopped due to hypotension. He had previously been on Entresto, spironolactone, Farxiga, carvedilol. Because of hypotension he was only continued on
metoprolol 25 mg daily and Bumex. He was continued on Plavix and Xarelto. Plan to consider single-chamber ICD for primary prevention of sudden cardiac once infection cleared. Had narrow QRS so not thought to be a SIDEROGRAPHIST candidate.
Long talk with patient at bedside on 05/10/2025 regarding his social situations. Patient has lots of stories and every story has another story, but essentially he is living at a 55+ community where he rents a home and his lease is currently good
through October. He says he can no longer afford to live there since his and he is planning to move out and move closer to his brother in [place], but his brother in [place] will not be able to act as a primary caregiver.
Patient reports he tried to recruit his daughter, Fernanda, to be a paid caregiver using a voucher program, but she was not interested. Patient thinks that he can get free [employer] [place] plug sorter care through the [place], I told him that sounded too
good to be true. Patient then said he had another plan that involved him moving to [place] to live near his son, but he feels his daughter is trying to sabotage that plan to keep him local and take his money, but this is the same daughter he was
recruiting to be his caregiver. I shared with the patient my concern that he will never be able to live independently again, his goals remain as stated above.
Progress Note - Modeling Manager
Subjective
Date of Service: May 11, 2025
He feels well, no lightheadedness
Objective
Labs:
05/09/25 03:26
05/10/25 03:26
Labs
Hgb 11.4 g/dL (13.0-18.0) L 05/09/25 03:26
Hct 36.2 % (39.0-52.0) L 05/09/25 03:26
Plt Count 187 10^3/uL (130-400) 05/09/25 03:26
PT 15.2 Sec (11.4-14.6) H 05/08/25 06:30
INR 1.17 05/08/25 06:30
Sodium 141 mmol/L (135-145) 05/10/25 03:26
Potassium 4.1 mmol/L (3.5-5.1) 05/10/25 03:26
BUN 38 mg/dl (9-20) H 05/10/25 03:26
Creatinine 0.9 mg/dL (0.7-1.3) 05/10/25 03:26
Glucose 95 mg/dl (70-99) 05/10/25 03:26
Vital Signs and I&O:
Vital Signs
Temp Pulse Resp BP Pulse Ox
97.5 F 67 20 125/54 99
05/11/25 07:51 05/11/25 08:12 05/11/25 07:51 05/11/25 08:12 05/11/25 07:51
Vital Signs
Temp Pulse Resp BP Pulse Ox
97.5 F 67 20 125/54 99
05/11/25 07:51 05/11/25 08:12 05/11/25 07:51 05/11/25 08:12 05/11/25 07:51
Intake & Output
05/09/25 05/10/25 05/11/25 05/12/25
06:59 06:59 06:59 06:59
Intake Total 480 / 480 1460 / 1460 960 / 960
Output Total 1900 / 1900 2650 / 2650 800 / 800
Balance -1420 / -1420 -1190 / -1190 160 / 160
Physical Exam
Physical Exam
GEN: NAD. AAOx3
LUNGS: RA. No audible wheeze
CV: SR on tele. Left ACW implant site covered in Aquacel dressing without drainage or hematoma
EXT: +1 B/L LE edema
NEURO: Gross non-focal
SKIN: No rash
--- NOTE | 2025-05-11 10:52 | W.PN.HOSP.TC ---
Today's Communication/Plan
-
dc
Assessment / Plan
Assessment / Plan
Physical exam:
Gen-AAOx3, NAD, obese
HEENT-NC, AT, anicteric, clear oral mm
Neck-supple
CV-reg, no M, +S1/S2
Lungs-clear bilaterally,
Abd-soft, NT, obese
Ext- less edema
Musculoskeletal-no cyanosis, clubbing
Skin-warm and dry
Neuro-grossly non-focal
Psych-calm, cooperative, talkative
74-year-old male past medical history of BPH, HFrEF and HFpEF CAD status post RCA stent, and hypertension, hydrocele, obesity, colon cancer, skin cancer, diabetes, glaucoma, DVT status post IVC filter in 2014, type SAMI is presented with worsening of
lower extremity edema and abdominal distention.
# Symptomatic hypotension, resolved.
#Acute hypoxic respiratory failure -likely multifactorial etiology including acute pulmonary edema from heart failure exacerbation, pleural effusions, acute bronchitis with active wheezing, etc.
Weaned off oxygen to room air.
Chest x-ray demonstrates moderate cardiomegaly, moderate pulmonary edema, moderate size right and small left pleural effusions.
Repeat chest x ray did not show definitive infiltrate
Sputum culture is with vic.
#Acute on chronic systolic and diastolic heart failure exacerbation
Adjusting his blood pressure medications and cardiac medications.
#Severe ischemic cardiomyopathy with LVEF 15 to 20% in January 2025 without improvement following revascularization. NYHA III heart failure symptoms. QRS duration less than 120 ms. Status post single-chamber ICD placement by Dr. Garvin 05/08.
#NSVT with history of reduced ejection fraction
ICD placed.
#CAD with RCA stent on 01/26/25
Continue with Plavix, statin and beta-inna
Currently on Xarelto, and adjusted to 15 mg per cardiology recommendation and [place] trial data-Xarelto on hold for ICD tomm
#Essential hypertension
stable.
#DM2 without hyperglycemia -does not appear to be on medications for diabetes.
Continue low resistance insulin scale. Hemoglobin A1c 6.1%.
History of stroke -details unknown.
SAMI - intolerant of CPAP.
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 Currently on Xarelto, and adjusted to 15 mg per cardiology recommendation and [place] trial data
Neurogenic bladder -chronic Hester catheter. Unclear when it was last changed.
Hydrocele -was due for treatment by his urologist but postponed due to respiratory status.
BPH -tamsulosin.
Chronic anemia -hemoglobin 11.5. Baseline unknown. Monitor for now.
Skin cancer status post surgery at [facility]
History of colon cancer
Morbid obesity due to excess calories
History of epistaxis
History of thyroid nodule
Buttock stage II pressure injury POA
Offloading
Wound care
Full code
PT/OT -SNF on discharge.
Total discharge time spent to see the patient, examine the patient, review data and lab result, discuss discharge plan with patient, cardiology, insurance case manager, nursing staff around 65 minutes
Anticipated Discharge: Today
Subjective/Interval History
-
Date of Service: May 11, 2025
Feeling well
No chest pain or sob
He wants to go to rehab
Nursing staff, good vital signs/ Bp.
Objective Data
-
Vital Signs:
Vital Signs
Temp Pulse Resp BP Pulse Ox
97.5 F 67 20 125/54 99
05/11/25 07:51 05/11/25 08:12 05/11/25 07:51 05/11/25 08:12 05/11/25 07:51
I&O
05/10/25 05/11/25 05/12/25
06:59 06:59 06:59
Intake Total 1460 / 1460 960 / 960
Output Total 2650 / 2650 800 / 800
Balance -1190 / -1190 160 / 160
[2025-05-11 11:17] VITALS: BP 94/64
[2025-05-11 11:52] LABS: Glucose - Point of Care 166 mg/dl (70-99)
[2025-05-11] MEDS: NOVOLOG FLEXPEN-LOW RESISTANCE 1 UNITS SC (12:47)
--- NOTE | 2025-05-11 14:17 | CM ---
Patient being discharged to [facility]. Authorization obtained from [facility], Auth# [id number], approval 05/11-05/15. NRD 05/15, called to [phone]
[2025-05-11 14:28] VITALS: BP 148/133
[2025-05-11 14:31] VITALS: BP 113/56
--- NOTE | 2025-05-11 15:30 | PTCARENOTE ---
Patient AOx 3, forgetful, NSR with PVC's bigeminy. Oxygen at night 2 liters NC, room air POX 95%. Chest wall dressing CDI, precations reviweded with patient several times. VSS. Report called to Barbara. IV and telemetry removed.
--- NOTE | 2025-05-11 15:34 | PTCARENOTE ---
transport arrived, all belongings sent. assisted to wheelchair
--- NOTE | 2025-05-11 15:49 | W.DCSUMMARY ---
Discharge Summary
Discharge Data
Date of Admission: 04/29/25
Date of Discharge: 05/11/25
-
Pending Results: No
Hospital Course
74 years old gentleman was transferred from rehab after obtaining blood work. He had finding consistent with high BNP and CO2 greater than 40. Patient reported exertional shortness of breath and weight gain. Patient had recent multiple admissions
to hospitals in [place] and was treated for variety of issues including cellulitis/scrotal infection/heart failure/coronary artery disease/cardiac arrhythmias. Patient was admitted to the hospital and was evaluated by master steam yacht. He was
diagnosed with acute on chronic heart failure with reduced ejection fraction. Chest x-ray did not show definitive infiltrate. He was given short course of steroid for treatment of acute bronchitis. Patient received intravenous diuretic with
monitoring of renal function/electrolyte and weight. He was started on Entresto and spironolactone for treatment of heart failure and to advance goal-directed medical therapy. SGLT2 was avoided due to recent scrotal infection. He had
echocardiogram that showed LVEF 25%. His volume status improving and had the placement of single-chamber ICD. cardiac medications were adjusted as his blood pressure tolerated. Patient started to improve. Repeat chest radiography did not show
significant congestion or infiltrate. He maintained normal oxygenation on room air, and good hemodynamic stability. Patient was evaluated by physical therapy and recommended chcf facility. He was evaluated by family service caseworker. Patient was
discharged to SNF in a stable condition.
Discharge Plan
-
Patient Disposition: Skilled Nursing/SNF
Discharge Diagnosis/Procedures: Acute hypoxic respiratory failure
Acute on chronic systolic and diastolic heart exacerbation
NSVT
Acute bronchitis
ICD implant (05/08/25)
Diet: 2 Gram Sodium and Restrict fluids to 48 oz
Driving Restrictions: No driving for 1 week
Blood Work: CBC & BMP in 5 days
Other Services: PT and OT
Specialty Instructions: Weigh Daily- Call MD for wt gain/loss 3 lbs overnight/5 lbs in 1 week
Activity Restrictions/Additional Instructions:
Wound Care Instructions
Sacral/buttocks-clean with saline or soap and water, silicone border foam, change q 2 days and prn loosened dressing. If foam ineffective, apply zinc barrier ointment (i.e. Calazime) TID instead.
Scrotum-barrier ointment BID.
Miconazole powder to abdominal/groin folds, affected areas bid.
Elevate heels off bed with pillows
Pressure redistributing chair cushion (i.e. Bariatric air chair cushion).
Turning schedule
Air mattress or air overlay.
Follow up with wound career orientation teacher or at wound care center if needed, call for an appointment.
Instructions: *DCA Heart Failure Instructions
Stand Alone Forms: DC Inst - Implanted Device
Referrals:
[facility] [Outside]
Efrain Ma MD [Family Provider]
Ernestina De La Vega CRNP [Specified Professional Personl, Cardiology] - 05/18/25 10:20 am
Referral Note: Cardiology followup and incision check appointment
Additional Discharge Medication Instructions: -Take Lasix 40 mg twice a day at 8 AM and 4 PM. If weight increases 3 lbs in a day or 5 lbs in a week then take an extra Lasix 40 mg that day
Prescriptions:
New
acetaminophen 325 mg Tablet
650 mg PO Q4HPRN PRN (Reason: pain, fever) Qty: 10 0RF
carvedilol 6.25 mg Tablet
6.25 mg PO BID Qty: 60 0RF
spironolactone 25 mg Tablet
25 mg PO DAILY Qty: 30 0RF
furosemide 80 mg Tablet
40 mg PO BID@0800,1600 Qty: 60 0RF
Entresto 24-26 mg Tablet
1 tab PO BID Qty: 60 0RF
Xarelto 15 mg Tablet
15 mg PO QPM Qty: 30 0RF
furosemide [Lasix] 40 mg tablet
40 mg PO DAILYPRN PRN (Reason: Weight gain) Qty: 10 0RF
Rx Instructions:
If weight increases 3 lbs in a day or 5 lbs in a week
Continued
brimonidine 0.2 % Drops
1 drp OPHTHALMIC (EYE) DAILY
latanoprost 0.005 % Drops
1 drp OPHTHALMIC (EYE) QPM
atorvastatin 80 mg Tablet
80 mg PO QPM
gabapentin 600 mg Tablet
600 mg PO TID
clopidogrel [Plavix] 75 mg Tablet
75 mg PO DAILY
tamsulosin [Flomax] 0.4 mg Capsule
0.4 mg PO DAILY
pantoprazole 40 mg Tablet,Delayed Release (Dr/Ec)
40 mg PO DAILY
finasteride 5 mg Tablet
5 mg PO DAILY
Discontinued
bumetanide 2 mg Tablet
2 mg PO BID
metoprolol succinate 25 mg Tablet Extended Release 24 Hr
25 mg PO DAILY
Xarelto 20 mg Tablet
20 mg PO DAILY
ammonium lactate 5 % Lotion
1 applic TOPICAL DAILY
Discharge Orders:
Discharge Patient (As Directed); Ordered 05/11/25
Ordered By: Gwyn Friedman
Care Plan Goals
Care Plan Goals:
Problem: Readiness for enhanced knowledge related to diagnosis and treatment plan
Goal: Understand your diagnosis and treatment plan needs, including medications if applicable.
Instructions: Know your diagnosis, underlying causes and treatment plan options, including medications if applicable. Consult with your health care team to learn about your diagnosis and treatment plan, including medications if applicable.
Discharge Date and Time
Discharge Date/Time: 05/11/25 15:37
Print Language: SAMMARINESE
--- NOTE | 2025-05-12 10:30 | W.HF.CON ---
Heart Failure
- LV Function
Left ventricular function study result: LV Ejection fraction </= 35%
Ejection Fraction Percentage: 25
- ARNI
Patient already on ARNI: Yes
- ACEI/ARB
Patient already on ACEI/ARB: No
Heart Failure ACEI/ARB Not Indicated: Patient ordered/on ARNI
- Beta Lane
Patient already on Evidence Based Beta Lane: Yes
- Mineralocorticord Receptor Antagonist
Patient already on MRA: Yes
- SGLT-2 Inhibitor
Patient already on SGLT-2 Inhibitor: No
Heart Failure SGLT-2 Inhibitor Contraindication: Patient Refusal
- NYHA CHF Classification
NYHA CHF Classification Level: Class III - Symptoms w/ min exertion, interferes w/ nml daily activity
- ACC/AHA Stage
ACC/AHA Stage: Stage C: Symptomatic Heart Failure
== END 2025-05-11 15:37 | DRG 276 ==
LOC: IVU 09:06
PROVIDERS: Hospitalist; Nurse Practitioner; Nurse Practitioner Family; Physician Assistant Medical; ADMITTING PHYSICIAN Internal Medicine; ATTENDING PHYSICIAN Internal Medicine; CONSULT PHYSICIAN Internal Medicine Cardiovascular Disease; EMERGENCY PHYSICIAN Emergency Medicine; FAMILY PHYSICIAN Internal Medicine
PROC: B5171ZZ Fluoroscopy of Left Subclavian Vein using Low Osmolar Contrast (ICD-10-PCS; 2025-05-08)
PROC: 0JH608Z Insertion of Defibrillator Generator into Chest Subcutaneous Tissue and Fascia, Open Approach (ICD-10-PCS; 2025-05-08)
PROC: 02H63KZ Insertion of Defibrillator Lead into Right Atrium, Percutaneous Approach (ICD-10-PCS; 2025-05-08)
DX: I11.0 Hypertensive heart disease with heart failure (principal); I50.43 Acute on chronic combined systolic (congestive) and diastolic (congestive) heart failure; J96.21 Acute and chronic respiratory failure with hypoxia; I47.20 Ventricular tachycardia, unspecified; E11.9 Type 2 diabetes mellitus without complications; I25.10 Atherosclerotic heart disease of native coronary artery without angina pectoris; N40.0 Benign prostatic hyperplasia without lower urinary tract symptoms; N31.9 Neuromuscular dysfunction of bladder, unspecified; R59.1 Generalized enlarged lymph nodes; I49.3 Ventricular premature depolarization; J20.9 Acute bronchitis, unspecified; E66.01 Morbid (severe) obesity due to excess calories; N43.3 Hydrocele, unspecified; L89.302 Pressure ulcer of unspecified buttock, stage 2; I48.0 Paroxysmal atrial fibrillation; N49.2 Inflammatory disorders of scrotum; D64.9 Anemia, unspecified; E78.5 Hyperlipidemia, unspecified; G47.33 Obstructive sleep apnea (adult) (pediatric); Z99.81 Dependence on supplemental oxygen; Z79.01 Long term (current) use of anticoagulants; Z86.73 Personal history of transient ischemic attack (TIA), and cerebral infarction without residual deficits; Z95.5 Presence of coronary angioplasty implant and graft; Z63.4 Disappearance and death of family member; Z95.828 Presence of other vascular implants and grafts; Z68.39 Body mass index [BMI] 39.0-39.9, adult; Z85.820 Personal history of malignant melanoma of skin; Z79.02 Long term (current) use of antithrombotics/antiplatelets; Z85.038 Personal history of other malignant neoplasm of large intestine; Z86.718 Personal history of other venous thrombosis and embolism
CPT/HCPCS: 93308; 33249; 71045; 71046; 80048; 80053; 80061; 81003; 81015; 82962; 83036; 83735; 83880; 84443; 84484; 85025; 85027; 85610; 87070; 87086; 87205; 93005; 93306; 93970; 94640; 96374; 97116; 97163; 97164; 97167; 97530; 97535; 99285; C1722; C1777; C1892

== ENCOUNTER → 2025-07-28 13:34 | Outpatient (REF) | payer OTHER, SELFPAY | LOC: HWRCS 13:34 | PROVIDERS: ATTENDING PHYSICIAN Internal Medicine Cardiovascular Disease; FAMILY PHYSICIAN Family Medicine | DX: I25.5 Ischemic cardiomyopathy (principal) | CPT/HCPCS: 93306 ==

== ENCOUNTER 2025-09-15 16:06 | Emergency (ER) | payer OTHER, SELFPAY ==
[2025-09-15] VITALS (7 sets, daily range): BP systolic 101–123; BP diastolic 70–91; BMI 38.4
[2025-09-15 16:34] LABS: Hematocrit 34.6 % (39.0-52.0); Hemoglobin 10.8 g/dL (13.0-18.0); Mean Corp Hgb Conc. 31.2 g/dL (33.0-37.0); Mean Corpuscular Volume 83.2 fL (80.0-94.0); Nucleated Red Blood Cells % 0 % (-); Platelet Count 185 10^3/uL (130-400); Red Cell Dist. Width 17.3 % (11.5-14.5)
[2025-09-15 16:43] LABS: INR 1.29; PT 16.4 Sec (11.4-14.6)
[2025-09-15 16:45] LABS: ALT (SGPT) 77 U/L (0-50); AST (SGOT) 36 U/L (17-59); Albumin 3.1 g/dl (3.5-5.0); Alkaline Phosphatase 109 U/L (38-126); Blood Urea Nitrogen 41 mg/dl (9-20); Calcium 8.3 mg/dl (8.4-10.2); Carbon Dioxide 27 mmol/L (22-30); Chloride 104 mmol/L (98-107); Estimated Creatinine Clearance 86 ml/min; Glucose 106 mg/dl (70-99); Potassium 3.8 mmol/L (3.5-5.1); Sodium 136 mmol/L (135-145); Total Protein 5.9 g/dl (6.3-8.2); eGFR > 60.00
[2025-09-15 16:56] LABS: Troponin I 0.020 ng/ml
--- NOTE | 2025-09-15 17:15 | EDCM ---
Received consult, reviewed chart and met with pt bedside in ED. Pt lives alone in [address], third floor apartment with elevator access.
Independent in ADLs and personal care, ambulates with rollator.
His last year and he said finances have been difficult, he cannot afford to live where he is.
He has 2 daughters, Fernanda lives in [place], not far from him and is a single mom with 2 children. He mentioned that he helps them financially. His other daughter Cindy lives in [place] and is going to rehab. Pt told me he is trying to get
in to [place] housing, put in an application several years ago. He is also considering moving closer to his brother who lives in [place].
He has a [facility] nurse who visits him but was not clear on how often. He had 2 recent stays at [facility] for STR.
PCP: Partha Gomez, he also told me he sees a [facility] doctor but could not tell me his name.
Discussed with Dr Anand, pt will be admitted.
CM will continue to follow for all discharge planning needs.
--- NOTE | 2025-09-15 20:47 | ED.CVA ---
History of Present Illness
General
Chief Complaint: CVA/TIA Symptoms
Source: patient
Exam Limitations: none
Time Seen by Provider: 09/15/25 16:42
Onset of Stroke Symptoms
Onset of symptoms known: Yes
Date of onset of symptoms: 09/15/25
History of Present Illness
History of Present Illness:
Note:
CHIEF COMPLAINT(S)
Sudden loss of balance and temporary vision loss.
HISTORY OF PRESENT ILLNESS
The patient is a 75-year-old male with a history of a prior stroke, presenting with a sudden loss of balance. A few days ago, while standing, he experienced a sensation of flipping sideways and fell to the floor. His balance issue was accompanied by
a temporary vision loss in his right eye, described as 'all black,' and this episode lasted about two hours. The vision disturbance resolved without residual deficits. The patients mobility is limited, and he mentioned having diffuse pain for which
he uses Tylenol. He is on blood thinners, specifically rivaroxaban, which makes him cautious about falls and injuries. He reported no recent changes in speech, no chest pain, or headaches. However, he described feeling generalized weakness,
especially noticeable in the legs, which made it challenging to get up after falling.
The patient also mentioned an open wound on the left side and another wound from a prior 'water sack' surgery that became problematic due to broken stitches. He also noted feeling overwhelmed with visits from healthcare providers, which he believes
might have contributed to his stress levels.
PAST MEDICAL AND SURGICAL HISTORY
- History of stroke that left him with some residual weakness.
- Prior surgery on a 'water sack,' specifics of which are unclear but mentioned to have issues with healing and a hole as a result of broken stitches.
CHRONIC MEDICAL CONDITIONS SIGNIFICANTLY AFFECTING CARE
- History of stroke with resultant left-side weakness.
- Ongoing use of blood thinners indicating a possible history of thromboembolic disease.
SOCIAL DETERMINANTS AFFECTING HEALTH
The patient has mentioned significant stress following the loss of his last year, possibly affecting his health and coping mechanisms. He also indicated issues with maintaining communication due to a faulty phone.
REVIEW OF SYSTEMS
- Neurological: Sudden vision loss in the right eye lasting about two hours, resolved spontaneously. Reports feeling weakness, particularly in the left arm and both legs.
- Musculoskeletal: Difficulty maintaining balance and standing.
- Integumentary: Presence of an open wound on the left side and a non-healing wound from a previous surgery on the 'water sack.'
PHYSICAL EXAM
General: Alert, no acute distress.
Skin: Warm, dry.
Head: Normocephalic, atraumatic.
Neck: Supple, trachea midline.
Eye, Ear, Nose, and Throat: Oral mucosa moist.
Cardiovascular: Normal peripheral perfusion, No edema.
Respiratory: Respirations are non-labored.
Gastrointestinal: Abdomen nondistended.
Back: Normal range of motion, Normal alignment.
Musculoskeletal: Normal range of motion, normal strength.
Neurological: Alert and oriented to person, place, time, and situation, with a very slight pronator drift on the left. No focal neurological deficits observed.
Psychiatric: Cooperative, appropriate mood & affect.
PROBLEM LIST
Acute:
- Sudden loss of vision in the right eye.
- Episodes of balance disturbance and falls.
- Open wound healing issues.
Chronic:
- Residual weakness from a prior stroke.
- Ongoing use of blood thinners.
PLAN
- Obtain a CT scan of the head to assess for acute pathology given his history of stroke and recent symptoms.
- Evaluate the open wound and consider referring to a multimedia educational specialist.
- Review medications, particularly focusing on blood thinners, to assess the risk in relation to falls.
- Discuss with the patient the importance of seeking immediate medical attention should symptoms of vision loss or significant weakness recur.
- Arrange for follow-up with primary care or neurologist as needed for further management of his chronic conditions and to monitor any neurological changes.
DIFFERENTIAL DIAGNOSIS
The Differential Diagnosis includes, in no particular order and is not limited to:
- Transient ischemic attack
- Acute cerebrovascular accident
- Peripheral neuropathy
- Medication side effects
- Eye pathology such as retinal detachment or vitreous hemorrhage
- Orthostatic hypotension
- Inner ear disorder leading to balance issues
- Dehydration/electrolyte imbalance
- Anemia
- Psychological factors or stress reaction
Disposition:
SUMMARY OF ENCOUNTER
The patient, a 75-year-old male, presented to the emergency department after slipping and falling in the kitchen. He reported feeling dizzy and had difficulty getting up following the fall. He is currently taking rivaroxaban and recently started
aspirin. A CT scan revealed a small 1.8 mm mildly hyperdense focus along the anterior frontal lobe, suspicious for a subdural hematoma. The patient appeared well at baseline and was neurologically stable on examination. Labs showed a normal CBC
except for mild anemia (Hb 10.8, baseline), normal chemistries, negative troponin (0.020), normal creatinine, and INR of 1.29.
DISPOSITION
Transfer
MANAGEMENT OF THE PATIENTS CARE WAS DISCUSSED WITH
Neurosurgery (Dr. Stevenson); awaiting call back from trauma surgery.
PLAN
Plan to transfer the patient to a trauma center for further evaluation and management due to being on anticoagulation and the CT findings of a potential subdural hematoma.
INDEPENDENT REVIEW OF LABS AND INTERPRETATION OF TESTS
My independent review of the CBC indicates mild anemia with a hemoglobin of 10.8, consistent with the patients baseline. My independent review of the CT head indicates a small 1.8 mm mildly hyperdense focus along the anterior frontal lobe, which is
suspicious for a subdural hematoma.
MEDICAL DECISION MAKING
-Complexity of Data Reviewed: Chronic conditions affecting care include a history of stroke with residual weakness and ongoing use of blood thinners. Differential Diagnosis includes: transient ischemic attack, acute cerebrovascular accident,
peripheral neuropathy, medication side effects, eye pathology such as retinal detachment or vitreous hemorrhage, orthostatic hypotension, inner ear disorder leading to balance issues, dehydration/electrolyte imbalance, anemia, and psychological
factors or stress reaction.
-Data:
Category 1
External records reviewed: CT images and lab tests including CBC, troponin, chemistries, creatinine, and INR.
Category 3
Discussion of management with neurosurgery (Dr. Stevenson) and awaiting call back from trauma surgery.
-Risk: Consideration of escalation of care including transfer to a trauma center was necessary due to the findings on the CT scan and the patients anticoagulation therapy. Care significantly affected by Social Determinants of Health due to potential
stress factors following the loss of his .
DIAGNOSIS
Suspected subdural hematoma (ICD-10: S06.5X0A). Mild anemia (ICD-10: D64.9).
Past History
Past History
ED Past Medical History: CAD, CHF, CVA, HTN and NIDDM
Phy Exam
Physical Exam
Physical Exam:
.
Course
Orders/Labs/Results
Orders:
Orders
09/15/25 16:21
Electrocardiogram (*1) Urgent
Reason for Study: Vertigo / Dizzy
EKG- Treatment ONCE
09/15/25 16:23
CMP [Comprehensive Metabolic Panel] Urgent
Complete Blood Count/With Diff Urgent
PT/INR [Prothrombin Time] Urgent
Troponin I Urgent
09/15/25 16:28
Case Management Consult ONCE
Case Management Consult: Discharge Planning
Requested By:: NURSING
Comment: please refer to triage note.
09/15/25 17:07
CT Head W/o Iv Contrast Urgent
Comment:
Reason For Exam: vision loss, h/o CVA
09/15/25 21:07
Interrogate Pacemaker- Treatment ONCE
Abnormal Lab Results
09/15/25
16:23
RBC 4.16 L 10^6/uL
(4.70-6.10)
Hgb 10.8 L g/dL
(13.0-18.0)
Hct 34.6 L %
(39.0-52.0)
MCH 26.0 L pg
(27.0-31.0)
MCHC 31.2 L g/dL
(33.0-37.0)
RDW 17.3 H %
(11.5-14.5)
Absolute Lymphs (auto) 0.6 L 10^3/uL
(1.2-3.4)
Neutrophils % 82.1 H %
(42.2-75.2)
Lymphocytes % 7.2 L %
(20.5-51.1)
PT 16.4 H Sec
(11.4-14.6)
BUN 41 H mg/dl
(9-20)
Glucose 106 H mg/dl
(70-99)
Calcium 8.3 L mg/dl
(8.4-10.2)
ALT 77 H U/L
(0-50)
Total Protein 5.9 L g/dl
(6.3-8.2)
Albumin 3.1 L g/dl
(3.5-5.0)
09/15/25 16:23
09/15/25 16:23
Vital Signs
Initial and Last Documented VS:
Initial Vital Signs
Temp Pulse Resp BP Pulse Ox
97.6 F 88 18 101/70 96
09/15/25 16:13 09/15/25 16:13 09/15/25 16:13 09/15/25 16:13 09/15/25 16:13
Last Documented Vital Signs
Temp Pulse Resp BP Pulse Ox
97.6 F 88 22 123/79 95
09/15/25 16:13 09/15/25 23:00 09/15/25 23:00 09/15/25 23:00 09/15/25 23:00
*Pulse Oximetry
SaO2: 95
Oxygen Mode of Delivery: Room air
Patient hypoxic: no
*Critical Care Note
Total Time (30-74mins, 75-104mins- exclusive of procedures): 30 minutes
ED Attending Note
-
Portions of this chart may have been created with voice recognition software.� Occasional wrong word or��sound alike� substitutions may have occurred due to the inherent limitations of voice recognition software.
Discharge Plan
Departure
Patient Disposition: Acute Care Hospital
Date of Disposition: 09/15/25
Time of Disposition: 20:49
Discharge Problem:
Acute subdural hematoma, Fall
Prescriptions:
No Action
brimonidine 0.2 % Drops
1 drp OPHTHALMIC (EYE) DAILY
latanoprost 0.005 % Drops
1 drp OPHTHALMIC (EYE) QPM
atorvastatin 80 mg Tablet
80 mg PO QPM
gabapentin 600 mg Tablet
600 mg PO TID
clopidogrel [Plavix] 75 mg Tablet
75 mg PO DAILY
tamsulosin [Flomax] 0.4 mg Capsule
0.4 mg PO DAILY
pantoprazole 40 mg Tablet,Delayed Release (Dr/Ec)
40 mg PO DAILY
finasteride 5 mg Tablet
5 mg PO DAILY
acetaminophen 325 mg Tablet
650 mg PO Q4HPRN PRN (Reason: pain, fever) Qty: 10 0RF
carvedilol 6.25 mg Tablet
6.25 mg PO BID Qty: 60 0RF
spironolactone 25 mg Tablet
25 mg PO DAILY Qty: 30 0RF
furosemide 80 mg Tablet
40 mg PO BID@0800,1600 Qty: 60 0RF
Entresto 24-26 mg Tablet
1 tab PO BID Qty: 60 0RF
Xarelto 15 mg Tablet
15 mg PO QPM Qty: 30 0RF
furosemide [Lasix] 40 mg tablet
40 mg PO DAILYPRN PRN (Reason: Weight gain) Qty: 10 0RF
Rx Instructions:
If weight increases 3 lbs in a day or 5 lbs in a week
Referrals:
Partha Gomez DO [Family Provider, Family Practice]
Hospital Transfer
Other hospital: [facility]
I certify that the patient requires transfer: Yes
Discussed case with accepting physician: Kim
Reason for transfer: specialties available
Interventions
Interventions:
*Risk Screen - Suicide Last Done: 09/15/25 16:13
*General Assessment Last Done: 09/15/25 16:13
*Neglect/Abuse Screening Last Done: 09/15/25 16:13
*ED- Fall Risk Assessment Last Done: 09/15/25 16:13
*ED COVID-19 Vaccine History Last Done: 09/15/25 16:13
*ED Influenza Vaccine History Last Done: 09/15/25 16:13
*Nursing Disposition Last Done: 09/15/25 23:10
ED- Pulmonary Assessment Last Done: 09/15/25 16:13
ED- Neurological Assessment Last Done: 09/15/25 16:13
ED- Cardiac Assessment Last Done: 09/15/25 16:13
Discharge Date and Time
Discharge Date/Time: 09/15/25 23:15
Print Language: AMHARIC
== END 2025-09-15 23:15 | disposition short-term general hospital (02) ==
LOC: EMR 16:06
PROVIDERS: EMERGENCY PHYSICIAN Emergency Medicine; FAMILY PHYSICIAN Family Medicine
DX: R26.89 Other abnormalities of gait and mobility (principal); D64.9 Anemia, unspecified; E11.9 Type 2 diabetes mellitus without complications; I11.0 Hypertensive heart disease with heart failure; I50.9 Heart failure, unspecified; I25.10 Atherosclerotic heart disease of native coronary artery without angina pectoris; S06.5XAA Traumatic subdural hemorrhage with loss of consciousness status unknown, initial encounter; W18.39XA Other fall on same level, initial encounter; Z79.01 Long term (current) use of anticoagulants; Z95.0 Presence of cardiac pacemaker
CPT/HCPCS: 99284; 70450; 80053; 84484; 85025; 85610